=== PATIENT | female | born 1935 | race Caucasian/White ===

== ENCOUNTER 2016-07-22 21:23 | Observation (INO) | payer MEDICARE, MEDICAID ==
[~2016-07-22] VITALS: Ht 160 cm; Wt 69.0 kg
[~2016-07-22 21:23] MED LIST: AMIT10TA6 PO; CALC1TAB26 PO; CELE40TA PO; CREON24 PO; CYCL1TAB29 PO; GABA400C5 PO; HYDR-3366 PO; INSU100V2 SQ; INSU100V3 SQ; MOBI7.5T PO; POTA10TA2 PO; PROT40TA PO; REGL10TA5 PO; ROPI.5 PO; VITA500T PO; ZOCO80TA PO
[2016-07-22 21:26] VITALS: BP 163/74; PULSE 106; RESP 15; TEMP 98.1; O2SAT 95
[2016-07-22] MEDS ORDERED: SODIUM CHLOR 0.9% 1000 ML INJ 1,000 ML IV SCH (22:56)
[2016-07-22] MEDS ORDERED: SODIUM CHLORIDE 0.9% FLUSH 5 ML FLUSH IVF PRN (23:00)
[2016-07-22] MEDS ORDERED: ONDANSETRON HCL 4 MG/2 ML VIAL IVP ONE (23:00)
[2016-07-22 23:02] VITALS: RESP 18; O2SAT 100
--- NOTE | 2016-07-22 23:03 | PD ---
HPI Chief Complaint: Respiratory Symptoms Time Seen by Provider: 22:48 Travel History International Travel<30 days: No Contact w/Intl Traveler<30days: No Traveled to known affect area: No History of Present Illness HPI 81-year-old female arrives to the ER complaining of nausea vomiting diarrhea for 2 days. She has a history of hyperlipidemia, hypertension, COPD, insulin- dependent diabetes. She has been unable to tolerate her medications for 2 days. Ten episodes of nonbloody vomiting and about 4 episodes of nonbloody diarrhea were observed today. No fever has been observed. She was diagnosed with bronchitis at [facility] ER today and discharged with meds for same. She denies abdominal pain. No chest pain or shortness of breath. No urinary complaint. PFSH Past Medical History Arthritis: Yes Asthma: No Blood Disorders: No Anxiety: No Depression: No Heart Rhythm Problems: No Cancer: No Cardiovascular Problems: Yes (HTN) High Cholesterol: Yes Chemotherapy: No Chest Pain: No Congestive Heart Failure: No COPD: Yes Diabetes: Yes Endocrine: Yes Gastrointestinal Disorders: No GERD: Yes Genitourinary: No Hypertension: Yes Immune Disorder: No Implanted Vascular Access Dvce: Yes Musculoskeletal: Yes (CHRONIC LOWER BACK PAIN) Neurologic: No Psychiatric: No Reproductive: No Respiratory: Yes (COPD) Immunizations Current: No Radiation Therapy: No Sleep Apnea: No Thyroid Disease: No ?: Not Past Surgical History Abdominal Surgery: Yes (BOWEL RESECTION) Body Medical Devices: Metal plates in left arm Cardiac Surgery: No Eye Surgery: Yes (CATARACT) Gynecologic Surgery: Yes (Hysterectomy ) Hysterectomy: Yes Tonsillectomy: Yes Other Surgery: Yes (colostomy reversal) Social History Alcohol Use: No Tobacco Use: Yes (1/2 PPD) Substance Use: No Allergies-Medications (Allergen,Severity, Reaction): Coded Allergies: No Known Allergies (Unverified , 07/22/16) Reported Meds & Prescriptions Reported Meds & Active Scripts Active Zofran Odt (Ondansetron Odt) 4 Mg Tab 4 Mg SL Q8HR PRN [place] (Hydrocodone-Acetaminophen) 10-325 Mg Tab 1 Tab PO Q6H PRN 14 Days Reported Prednisone 20 Mg Tab 20 Mg PO DIRECTED 40 MG twice a day x 3 days, then 20 MG daily x 3 days, then 10 MG daily x 3 days Metoclopramide (Metoclopramide HCl) 10 Mg Tab 10 Mg PO QID Cephalexin 500 Mg Tab 500 Mg PO Q12H Valsartan 320 Mg Tab 320 Mg PO DAILY Calcium 600/Vitamin D3 (Calcium Carbonate-Cholecalciferol) 600-800 Mg-Unit Tab 1 Tab PO DAILY Vitamin C (Ascorbic Acid) 500 Mg Tab 500 Mg PO DAILY Humulin R Inj (Insulin Human Regular) 1,000 Unit/10 Ml Vial SQ DIRECTED PRN Humulin N Inj (Insulin Human NPH) 1,000 Unit/10 Ml Vial 20 Units SQ DAILY IN THE PM Humulin N Inj (Insulin Human NPH) 1,000 Unit/10 Ml Vial 10 Units SQ DAILY IN THE AM Creon (Amylase/Lipase/Protease) 24,000-76,000-120,000 Units Cap 2-3 Cap PO TIDPC Gabapentin 400 Mg Cap 400 Cap PO TID Zocor (Simvastatin) 80 Mg Tab 80 Mg PO DAILY Potassium Chloride ER (Potassium Chloride) 10 Meq Tab 10 Meq PO DAILY Flexeril (Cyclobenzaprine HCl) 10 Mg Tab 10 Mg PO BID Mobic (Meloxicam) 7.5 Mg Tab 7.5-15 Mg PO DAILY Protonix (Pantoprazole Sodium) 40 Mg Tab 40 Mg PO DAILY Celexa (Citalopram Hydrobromide) 40 Mg Tab 40 Mg PO DAILY Requip (Ropinirole HCl) 0.5 Mg Tab 0.5 Mg PO HS Amitriptyline (Amitriptyline HCl) 10 Mg Tab 10 Mg PO DAILY Reglan (Metoclopramide HCl) 10 Mg Tab 10 Mg PO TIDAC Review of Systems Except as stated in HPI: all other systems reviewed are Neg General / Constitutional: No: Fever, Chills Gastrointestinal: Positive: Nausea, Vomiting, Diarrhea, Changes in Bowel Habits , No: Abdominal Pain, Hematemesis, Hematochezia, Constipation Genitourinary: No: Urgency, Frequency Physical Exam Narrative GENERAL: 81-year-old female pleasant no acute distress SKIN: Warm and dry. HEAD: Atraumatic. Normocephalic. EYES: Pupils equal and round. No scleral icterus. No injection or drainage. ENT: No nasal bleeding or discharge. Mucous membranes pink and moist. NECK: Trachea midline. No JVD. CARDIOVASCULAR: Heart rate approximately 95 bpm and regular. RESPIRATORY: No accessory muscle use. Clear to auscultation. Breath sounds equal bilaterally. GASTROINTESTINAL: Abdomen soft, non-tender, nondistended. Hepatic and splenic margins not palpable. MUSCULOSKELETAL: No obvious deformities. No clubbing. No cyanosis. No edema. NEUROLOGICAL: Awake and alert. No obvious cranial nerve deficits. Motor grossly within normal limits. Normal speech. PSYCHIATRIC: Appropriate mood and affect; insight and judgment normal. Data Data Last Documented VS Vital Signs Date Time Temp Pulse Resp B/P Pulse Ox O2 Delivery O2 Flow Rate FiO2 07/22/16 23:02 18 100 Nasal Cannula 2 07/22/16 21:26 98.1 106 163/74 Vital signs reviewed Orders Basic Metabolic Panel (Bmp) (07/22/16 22:56) Complete Blood Count With Diff (07/22/16 22:56) Lactic Acid (07/22/16 22:56) Urinalysis - C+S If Indicated (07/22/16 22:56) Iv Access Insert/Monitor (07/22/16 22:56) Ecg Monitoring (07/22/16 22:56) Oximetry (07/22/16 22:56) Ondansetron Inj (Zofran Inj) (07/22/16 23:00) Sodium Chlor 0.9% 1000 Ml Inj (Ns 1000 M (07/22/16 22:56) Sodium Chloride 0.9% Flush (Ns Flush) (07/22/16 23:00) Electrocardiogram (07/22/16 22:56) Chest, Single Ap (07/22/16 22:56) Ckmb (Isoenzyme) Profile (07/22/16 23:10) Troponin I (07/22/16 23:10) CKMB (07/22/16 23:10) CKMB% (07/22/16 23:10) Labs Laboratory Tests Test 07/22/16 07/22/16 07/23/16 23:10 23:25 00:20 White Blood Count 7.3 TH/MM3 Red Blood Count 5.58 MIL/MM3 Hemoglobin 15.6 GM/DL Hematocrit 46.0 % Mean Corpuscular Volume 82.3 FL Mean Corpuscular Hemoglobin 28.0 PG Mean Corpuscular Hemoglobin 34.0 % Concent Red Cell Distribution Width 17.8 % Platelet Count 258 TH/MM3 Mean Platelet Volume 8.8 FL Neutrophils (%) (Auto) 60.6 % Lymphocytes (%) (Auto) 28.6 % Monocytes (%) (Auto) 9.4 % Eosinophils (%) (Auto) 0.2 % Basophils (%) (Auto) 1.2 % Neutrophils # (Auto) 4.4 TH/MM3 Lymphocytes # (Auto) 2.1 TH/MM3 Monocytes # (Auto) 0.7 TH/MM3 Eosinophils # (Auto) 0.0 TH/MM3 Basophils # (Auto) 0.1 TH/MM3 CBC Comment DIFF FINAL Differential Comment Sodium Level 134 MEQ/L Potassium Level 3.7 MEQ/L Chloride Level 101 MEQ/L Carbon Dioxide Level 20.9 MEQ/L Blood Urea Nitrogen 11 MG/DL Creatinine 0.66 MG/DL Random Glucose 160 MG/DL Calcium Level 9.1 MG/DL Anion Gap 12 MEQ/L Estimat Glomerular Filtration 86 ML/MIN Rate Total Creatine Kinase 140 U/L Creatine Kinase MB 2.5 NG/ML Troponin I LESS THAN 0.02 NG/ML Lactic Acid Level 1.5 mmol/L Urine Color YELLOW Urine Turbidity CLEAR Urine pH 6.0 Urine Specific [place] 1.018 Urine Protein TRACE mg/dL Urine Glucose (UA) NEG mg/dL Urine Ketones 80 mg/dL Urine Occult Blood NEG Urine Nitrite NEG Urine Bilirubin NEG Urine Urobilinogen LESS THAN 2.0 MG/DL Urine Leukocyte Esterase NEG Urine RBC 1 /hpf Urine WBC 2 /hpf Urine Squamous Epithelial <1 /hpf Cells Urine Hyaline Casts 2 /lpf Urine Waxy Casts 1 /lpf Urine Mucus FEW /lpf Microscopic Urinalysis Comment CULT NOT INDICATED MDM Medical Decision Making Medical Screen Exam Complete: Yes Emergency Medical Condition: Yes Differential Diagnosis UTI, electrolyte imbalance, arrhythmia, NSTEMI, pneumonia, renal failure Narrative Course EKG reveals a sinus rhythm of 97 bpm with Q waves in V3 and V4 Last 24 hours Impressions Chest X-Ray 07/22/16 8427 Signed Impressions: Service Date/Time: Friday, July 22, 2016 23:33 - CONCLUSION: No acute cardiopulmonary disease identified. Souleymane Merlos MD CBC & BMP Diagram 07/22/16 23:10 Troponin is less than 0.02 Patient has received Zofran and a liter of saline here. Upon reassessment at 1: 30 AM she appears in no distress. The patient's daughter reiterates that multiple antiemetic agents have been given today system nausea and vomiting have been observed. We'll keep for 23 hours for IV hydration and antiemesis. d/w Valeriy Michael Diagnosis Primary Impression: Nausea & vomiting Qualified Code: R11.2 - Nausea and vomiting, intractability of vomiting not specified, unspecified vomiting type Additional Impression: Diarrhea Qualified Code: R19.7 - Diarrhea, unspecified type Admitting Information Admitting Physician Requests: Observation Referrals: DR CASANOVA 2 days Additional Instructions: You have a choice when it comes to health care, and we are glad that you chose [facility]. Hopefully, we have met your expectations on today's visit. You are welcome to return to [facility] at any time, as we are committed to meeting the health care needs of our community. Scripts Ondansetron Odt (Zofran Odt)4 Mg Tab4 Mg SL Q8HR PRN (Nausea/Vomiting) #10 TAB Ref 0 Prov:Shorty Lane MD 07/23/[address] MD Jul 22, 2016 23:03
[2016-07-22 23:24] LABS: AUTOMATED NEUTROPHIL # 4.4 TH/MM3 (1.8-7.7); BASOPHIL # 0.1 TH/MM3 (0-0.2); BASOPHIL % 1.2 % (0.0-2.0); EOSINOPHIL % 0.2 % (0.0-4.0); HEMO FLAGS DIFF FINAL; LYMPH % 28.6 % (9.0-44.0); LYMPHOCYTE # 2.1 TH/MM3 (1.0-4.8); MEAN CELL VOLUME 82.3 FL (80.0-100.0); MONO % 9.4 % (0.0-8.0); NEUT % 60.6 % (16.0-70.0); PLATELET COUNT 258 TH/MM3 (150-450); RED BLOOD COUNT 5.58 MIL/MM3 (4.00-5.30); RED CELL DISTRIBUTION WIDTH 17.8 % (11.6-17.2); WHITE BLOOD COUNT 7.3 TH/MM3 (4.0-11.0)
[2016-07-22] MEDS ORDERED: VALS1TAB70 PO (23:38)
[2016-07-22 23:39] LABS: ANION GAP 12 MEQ/L (5-15); BICARBONATE 20.9 MEQ/L (21.0-32.0); BLOOD UREA NITROGEN 11 MG/DL (7-18); CHLORIDE 101 MEQ/L (98-107); GLOMERULAR FILTRATION RATE 86 ML/MIN (>89); POTASSIUM 3.7 MEQ/L (3.5-5.1); SODIUM (NA) 134 MEQ/L (136-145)
[2016-07-22] MEDS ORDERED: PRED20 PO (23:42)
[2016-07-22] MEDS ORDERED: CEPH500T PO (23:42)
[2016-07-22] MEDS ORDERED: METO10TA PO (23:42)
[2016-07-22] MEDS ORDERED: CITA20TA4 PO (23:43)
[2016-07-22 23:51] LABS: CREATINE KINASE 140 U/L (26-192)
--- NOTE | 2016-07-22 23:57 | RADRPT ---
EXAM DATE/TIME: 07/22/2016 23:33 [place] COMPARISON: CHEST SINGLE AP, March 27, 2016, 12:10. INDICATIONS : Shortness of breath. feeling faint MEDICAL HISTORY : Chronic obstructive pulmonary disease. SURGICAL HISTORY : Left Shoulder ORIF ENCOUNTER: Initial ACUITY: 1 day PAIN SCORE: 6/10 LOCATION: Bilateral chest FINDINGS: Single AP view of the chest. The lungs are clear. Cardiomediastinal silhouette within normal limits. No evidence of pleural effusion or pneumothorax. Evidence of chronic bone defect in the proximal left humerus. CONCLUSION: No acute cardiopulmonary disease identified. Souleymane Merlos MD on July 22, 2016 at 23:54 Board Certified Radiologist. This report was verified electronically.
[2016-07-23 00:18] LABS: CKMB 2.5 NG/ML (0.5-3.6)
[2016-07-23 00:37] LABS: BLOOD, URINE NEG (NEG); COMMENT (UR) CULT NOT INDICATED; CULTURE IF INDICATED CULT NOT INDICATED; GLUCOSE,URINE NEG (NEG); HYALINE CAST, URINE 2 /lpf (RARE); KETONE, URINE 80 mg/dL (NEG); MUCUS URINE FEW /lpf (OCC); NITRITE,URINE NEG (NEG); SQUAMOUS EPITHELIAL CELL URINE <1 /hpf (0-5); URINE COLOR YELLOW (YELLW/STRAW); WAXY CAST, URINE 1 /lpf
[2016-07-23] MEDS ORDERED: ZOFR4TAB3 SL (01:22)
[2016-07-23 02:06] VITALS: BP 141/64; PULSE 99; RESP 18; O2SAT 100
[2016-07-23] MEDS ORDERED: ACETAMINOPHEN/HYDROcodone 325 MG/10 MG TAB PO ONE (02:15)
[2016-07-23] MEDS ORDERED: ACETAMINOPHEN 325 MG TAB PO PRN (02:45)
[2016-07-23] MEDS ORDERED: NALOXONE HCL 0.4 MG/ML AMP IV PRN (02:45)
[2016-07-23] MEDS ORDERED: SODIUM CHLORIDE 0.9% FLUSH 5 ML FLUSH FLUSH PRN (02:45)
[2016-07-23] MEDS ORDERED: ONDANSETRON HCL 4 MG/2 ML VIAL IVP PRN (02:45)
[2016-07-23] MEDS: SODIUM CHLOR 0.9% 1000 ML INJ 1,000 ML IV SCH ×3 (02:59→22:42)
[2016-07-23 04:26] VITALS: BP 131/74; PULSE 88; RESP 20; TEMP 97.4; O2SAT 93
[2016-07-23] MEDS: HEPARIN SODIUM - SQ 10,000 UNITS/ML VIAL SQ SCH ×2 (04:30→17:15)
[2016-07-23] MEDS ORDERED: MORPHINE SULFATE 4 MG/ML INJ IV ONE (04:30)
[2016-07-23] MEDS ORDERED: ACETAMINOPHEN/HYDROcodone 325 MG/10 MG TAB PO PRN ×2 (04:30→15:00)
[2016-07-23] MEDS ORDERED: RESP: ALBUTEROL 2.5 MG/IPRATROPIUM 0.5 MG NEB (PRN) NEB (08:30)
[2016-07-23 08:32] VITALS: BP 139/64; PULSE 91; RESP 18; TEMP 96.1; O2SAT 95
[2016-07-23] MEDS: PANTOPRAZOLE SOD 40 MG DELAYED RELEASE TAB PO SCH (08:59)
[2016-07-23] MEDS: SODIUM CHLORIDE 0.9% FLUSH 5 ML FLUSH FLUSH SCH ×2 (08:59→22:01)
--- NOTE | 2016-07-23 09:25 | MH ---
cc: SOLIS GALLARDO MD DATE OF ADMISSION: 07/23/2016 DATE OF 1935 CHIEF COMPLAINT Nausea, vomiting and diarrhea. TRAVEL IN THE LAST 30 DAYS None. HISTORY OF PRESENT ILLNESS This is a pleasant 81-year-old white female who has been in her usual state of health for approximately the past month until a couple of days ago. The patient with no warning started having problems with nausea, vomiting, nonbloody and approximately four episodes of diarrhea yesterday. The patient denies any fever, denies any chest pain, denies any shortness of breath except for her normal routine. The patient denies any dysuria, no headaches. The patient is positive for generalized weakness and malaise and has a significant history of COPD and cigarette abuse. The patient fell approximately 6 months ago, injured her left hip and leg. She did go to [facility] for two months for rehab and has been in a wheelchair for the past six months. She was released from [facility] approximately a month ago and is back home has been in her home living with her daughter and her . The patient does also have a diagnosis of bronchitis that she had been to the [facility] for and was discharged with outpatient medications for that treatment. The patient is alert, oriented and a fairly good historian. PAST MEDICAL HISTORY 1. Arthritis. 2. COPD. 3. Cigarette abuse. 4. Hypertension. 5. Hyperlipidemia. 6. Diabetes. 7. Gastroesophageal reflux disease. 8. Chronic degenerative disk disease and low back pain. 9. Left shoulder injury, chronic. 10. Chronic pain. PAST SURGICAL HISTORY 1. Bowel resection. 2. Metal plates in left arm. 3. Cataract surgery. 4. Hysterectomy. 5. Tonsillectomy. 6. Colostomy reversal. ALLERGIES None known. MEDICATIONS REPORTED 1. Prednisone. 2. Cephalexin. 3. Valsartan. 4. Calcium. 5. Metoclopramide. 6. She has taken [place] p.r.n. 7. Zofran. 8. Vitamin C. 9. Insulin for her insulin-dependent diabetes mellitus. 10. Gabapentin. 11. Creon. 12. Zocor. 13. Potassium. 14. Flexeril. 15. Mobic. 16. Protonix. 17. Celexa. 18. Requip. 19. Amitriptyline. 20. Reglan. SOCIAL HISTORY Long-term smoker since age of 20, currently smokes approximately 1/2-half per day. No alcohol. No other illicit drug use. Lives with her daughter and her in her home. REVIEW OF SYSTEMS A 12-point review was done. Positives noted are nausea, vomiting, diarrhea, dry mucous membranes, generalized weakness and fatigue, cough. Otherwise systems are negative or unremarkable. PHYSICAL EXAMINATION VITAL SIGNS: Temperature is 97.4, pulse 88, has been as high as 106, respirations 20, blood pressure 131/74, O2 sat 93, 2 liters nasal cannula O2. GENERAL: Thin, borderline frail white female, looks to be her stated age resting on the stretcher, alert. SKIN: Thin mucous membranes, pale, warm and dry. HEENT: Atraumatic, normocephalic. PERRLA at 2. No scleral icterus. No exudate. Oral cavity - Dry mucous membranes. NECK: Thin, supple. CARDIOVASCULAR: S1-S2. Regular rate and rhythm. No murmurs, rubs or gallops. RESPIRATORY: Clear to auscultation anteriorly and posteriorly, mid and upper lobes. She does have expiratory and some inspiratory wheezes noted bilateral. GI: Abdomen is soft, nontender, nondistended. Active bowel sounds in all four quadrants. MUSCULOSKELETAL: She can move her extremities with purpose. She does have weakness secondary to her falling injury on her left lower leg but she can overcome resistance. Hand stonemason helper are equal. No clubbing, no edema. Left shoulder dislocation, chronic, increased pain with tactile stimulation or movement. This is status post a fall. NEUROLOGICALLY: Alert, oriented. No obvious deficits. Speech is clear and normal. PSYCHIATRIC: Appropriate mood and affect. DIAGNOSTIC DATA WBC count 7.3, RBC 5.58, hemoglobin 15.6, hematocrit 46, platelet count is 258, abnormals noted are her monocyte percentage at 9.4. Chemistry: Sodium 134, potassium 3.7, chloride 101, carbon dioxide 20.9, amnion gap 12, BUN 11, creatinine 0.66, GFR 86, random glucose 160, lactic acid 1.5, calcium 9.1. Troponin is less than 0.02. Urine is yellow clear, pH is 6, specific gravity 1.018, trace protein, negative for glucose, occult blood, nitrites, bilirubin and urine esterase. Ketones are 80. Culture is not indicated. IMAGING STUDIES Chest x-ray with no acute cardiopulmonary disease or consolidation. ASSESSMENT AND PLAN 1. Lactic acid sepsis. 2. Nausea, vomiting, diarrhea, unspecified for now. Rule out stomach virus. 3. Possible gastritis. 4. Bronchitis recent history. 5. Hypertension. 6. Tobacco abuse. 7. COPD exacerbation with hypoxemia. 8. Diabetes mellitus insulin dependent. PLAN 1. Admit initially for observation. 2. We will hydrate this patient with gentle hydration. Vital signs q. 4 and as needed. 3. Activity will be bedrest with out of bed with assistance. 4. Reconcile her medications. 5. DVT prophylaxis with heparin. 6. Monitor for any fever. 7. Will check her for flu. 8. The patient will need management for her chronic pain. 9. We are going to monitor her on telemetry, keep the IV in. 10. The patient did receive a influenza virus vaccine x 1 when brought into to the emergency room. 11. Give p.r.n. medication for her nausea and vomiting and monitor her GI needs. We will give her Protonix for PUD prophylaxis. 12. DuoNeb treatments for her cough. 13. We will follow her needs. The patient is full code, full aggressive care. This has been briefly discuss with her regarding her wishes. Dictated by: PRETTY Wise Solis Gallardo MD MNA/SSB /8:18 AM /9:24 AM PT is seen & examined acute N/V/D ?? etiology, ? gastroenteritis ? Gastroparesis ? med s/e ch pain ? narcotic dependence hx pancreatitis IVF analgesic anti emetics d/w PT d/w Rema d/Solis Esposito RN, MD Jul 23, 2016 12:25 MTDD
[2016-07-23] MEDS: MORPHINE SULFATE 4 MG/ML INJ IV PUSH PRN ×2 (12:01→17:15)
--- NOTE | 2016-07-23 12:25 | HHI.PR ---
Objective Objective Results - Vital Signs Date Time Temp Pulse Resp B/P Pulse Ox O2 Delivery O2 Flow Rate FiO2 07/23/16 08:32 96.1 91 18 139/64 95 07/23/16 04:39 16 07/23/16 04:26 97.4 88 20 131/74 93 07/23/16 02:06 99 18 141/64 100 Nasal Cannula 2 07/22/16 23:02 18 100 Nasal Cannula 2 07/22/16 22:56 18 100 Nasal Cannula 2 07/22/16 21:26 98.1 106 15 163/74 95 Room Air Result Diagram: 07/22/16 2310 07/22/16 2310 Other Results Laboratory Tests Test 07/22/16 07/22/16 07/23/16 23:10 23:25 00:20 White Blood Count 7.3 Red Blood Count 5.58 Hemoglobin 15.6 Hematocrit 46.0 Mean Corpuscular Volume 82.3 Mean Corpuscular Hemoglobin 28.0 Mean Corpuscular Hemoglobin 34.0 Concent Red Cell Distribution Width 17.8 Platelet Count 258 Mean Platelet Volume 8.8 Neutrophils (%) (Auto) 60.6 Lymphocytes (%) (Auto) 28.6 Monocytes (%) (Auto) 9.4 Eosinophils (%) (Auto) 0.2 Basophils (%) (Auto) 1.2 Neutrophils # (Auto) 4.4 Lymphocytes # (Auto) 2.1 Monocytes # (Auto) 0.7 Eosinophils # (Auto) 0.0 Basophils # (Auto) 0.1 CBC Comment DIFF FINAL Differential Comment Sodium Level 134 Potassium Level 3.7 Chloride Level 101 Carbon Dioxide Level 20.9 Blood Urea Nitrogen 11 Creatinine 0.66 Random Glucose 160 Calcium Level 9.1 Anion Gap 12 Estimat Glomerular Filtration 86 Rate Total Creatine Kinase 140 Creatine Kinase MB 2.5 Troponin I LESS THAN 0.02 Lactic Acid Level 1.5 Urine Color YELLOW Urine Turbidity CLEAR Urine pH 6.0 Urine Specific [place] 1.018 Urine Protein TRACE Urine Glucose (UA) NEG Urine Ketones 80 Urine Occult Blood NEG Urine Nitrite NEG Urine Bilirubin NEG Urine Urobilinogen LESS THAN 2.0 Urine Leukocyte Esterase NEG Urine RBC 1 Urine WBC 2 Urine Squamous Epithelial <1 Cells Urine Hyaline Casts 2 Urine Waxy Casts 1 Urine Mucus FEW Microscopic Urinalysis Comment CULT NOT INDICATED Physical Exam Physical Exam PT is seen & examined acute N/V/D ?? etiology, ? gastroenteritis ? Gastroparesis ? med s/e ch pain ? narcotic dependence hx pancreatitis IVF analgesic anti emetics d/w PT d/w Rema irene/Solis Esposito RN, MD Jul 23, 2016 12:25
[2016-07-23] MEDS: LIPASE/PROTEASE/AMYLASE (24,000/76,000/120,000) CAP PO SCH ×2 (13:30→17:14)
[2016-07-23 13:38] VITALS: BP 136/64; PULSE 88; RESP 18; TEMP 97.9; O2SAT 93
--- NOTE | 2016-07-23 13:52 | EKG ---
Date Performed: 07/22/2016 Time Performed: 22:59:33 PTAGE: 81 years EKG: Sinus rhythm POSSIBLE LEFT ATRIAL ENLARGEMENT MARKED LEFT AXIS DEVIATION LOW QRS VOLTAGE IN PRECORDIAL LEADS POSS IBLE ANTERIOR MYOCARDIAL INFARCTION ABNORMAL ECG PREVIOUS TRACING : 03/27/2016 12.57 DOCTOR: Agustín Alvarez Interpretating Date/Time 07/23/2016 13:49:13
[2016-07-23] MEDS: GABAPENTIN 400 MG CAP PO SCH ×2 (14:56→17:14)
[2016-07-23 15:34] VITALS: BP 166/75; PULSE 88; RESP 19; TEMP 98.2; O2SAT 93
[2016-07-23] MEDS: METOCLOPRAMIDE HCL 10 MG TAB PO SCH (17:14)
[2016-07-23 20:12] VITALS: BP 139/65; PULSE 87; RESP 18; TEMP 97.9
[2016-07-23] MEDS: CYCLOBENZAPRINE HCL 10 MG TAB PO SCH (22:00)
[2016-07-24 00:39] VITALS: BP 122/58; PULSE 84; O2SAT 91
[2016-07-24 04:09] VITALS: BP 120/62; PULSE 85; RESP 20; TEMP 98; O2SAT 92
[2016-07-24] MEDS: MORPHINE SULFATE 4 MG/ML INJ IV PUSH PRN ×2 (04:11→08:55)
[2016-07-24] MEDS: HEPARIN SODIUM - SQ 10,000 UNITS/ML VIAL SQ SCH ×2 (05:20→17:18)
[2016-07-24 07:47] VITALS: BP 159/71; PULSE 91; RESP 18; TEMP 97.8; O2SAT 92
[2016-07-24] MEDS: SODIUM CHLORIDE 0.9% FLUSH 5 ML FLUSH FLUSH SCH (08:11)
[2016-07-24] MEDS: CYCLOBENZAPRINE HCL 10 MG TAB PO SCH (08:50)
[2016-07-24] MEDS: SODIUM CHLOR 0.9% 1000 ML INJ 1,000 ML IV SCH (08:50)
[2016-07-24] MEDS: GABAPENTIN 400 MG CAP PO SCH ×3 (08:51→17:17)
[2016-07-24] MEDS: METOCLOPRAMIDE HCL 10 MG TAB PO SCH ×3 (08:51→17:16)
[2016-07-24] MEDS: LIPASE/PROTEASE/AMYLASE (24,000/76,000/120,000) CAP PO SCH ×3 (08:52→17:16)
[2016-07-24] MEDS: PANTOPRAZOLE SOD 40 MG DELAYED RELEASE TAB PO SCH (08:57)
[2016-07-24] MEDS ORDERED: VALSARTAN 160 MG TAB PO SCH (09:00)
[2016-07-24] MEDS ORDERED: CITALOPRAM HYDROBROMIDE 40 MG TAB PO SCH (09:00)
[2016-07-24] MEDS ORDERED: PANTOPRAZOLE SOD 40 MG DELAYED RELEASE TAB PO SCH (09:00)
[2016-07-24] MEDS ORDERED: AMITRIPTYLINE HCL 10 MG TAB PO SCH (09:00)
[2016-07-24] MEDS ORDERED: SIMVASTATIN 80 MG PO SCH (09:00)
[2016-07-24] MEDS ORDERED: POTASSIUM CHLORIDE 10 MEQ CONTROLLED RELEASE TAB PO SCH (09:00)
[2016-07-24] MEDS ORDERED: INSULIN HUMAN NPH 1,000 UNITS/10 ML VIAL SQ SCH (09:00)
--- NOTE | 2016-07-24 09:31 | HHI.PR ---
Subjective Remarks Resting in bed Nausea, but no emesis since admission No shortness of breath, patient on room air Alert responsive No family in room (Rema Louie) Objective Objective Results - Vital Signs Date Time Temp Pulse Resp B/P Pulse Ox O2 Delivery O2 Flow Rate FiO2 07/24/16 07:47 97.8 91 18 159/71 92 07/24/16 05:54 20 07/24/16 04:09 98.0 85 20 120/62 92 07/24/16 00:52 20 07/24/16 00:39 84 122/58 91 07/23/16 20:12 97.9 87 18 139/65 07/23/16 15:34 98.2 88 19 166/75 93 07/23/16 13:38 97.9 88 18 136/64 93 I/O 07/23/16 07/23/16 07/23/16 07/24/16 07/24/16 07/24/16 07:00 15:00 23:00 07:00 15:00 23:00 Intake Total 1010 ml Balance 1010 ml Intake IV Total 1010 ml # Voids 3 # Bowel Movements 0 (Rema Louie) Result Diagram: 07/22/16 2310 07/22/16 2310 Other Results Last Impressions Chest X-Ray 07/22/166 Signed Impressions: Service Date/Time: Friday, July 22, 2016 23:33 - CONCLUSION: No acute cardiopulmonary disease identified. Souleymane Merlos MD Medications and IVs Active Medications Acetaminophen/ Hydrocodone Bitart ([place] 10-325 Mg) 1 tab Q6H PRN PO Last administered on 07/23/16 22:01; Admin Dose 1 TAB; Start 07/23/16 at 15:00 Amitriptyline HCl (Elavil) 10 mg DAILY PO Last administered on 07/24/16 08:52; Admin Dose 10 MG; Start 07/24/16 at 09:00 Amylase/Lipase/ Protease (Creon 24-76-120) 2 cap TIDPC PO Last administered on 08:52; Admin Dose 2 CAP; Start 07/23/16 at 13:30 Citalopram Hydrobromide (CeleXA) 40 mg DAILY PO Last administered on 07/24/16 08:52; Admin Dose 40 MG; Start 07/24/16 at 09:00 Cyclobenzaprine HCl (Flexeril) 10 mg BID PO Last administered on 07/24/16 08:50 ; Admin Dose 10 MG; Start 07/23/16 at 21:00 Gabapentin (Neurontin) 300 mg TID PO Last administered on 07/24/16 08:51; Admin Dose 300 MG; Start 07/23/16 at 13:00 Influenza Virus Vaccine (Flu (Quadrivalent) Vaccine Inj) 0.5 ml ONCE ONCE IM Last administered on 07/24/16 08:57; Admin Dose 0.5 ML; Start 07/24/16 at 10:00 ; Stop 07/24/16 at 10:01 Insulin Human NPH (NovoLIN N INJ) 20 units DAILY SQ Last administered on 08:53; Admin Dose 20 UNITS; Start 07/24/16 at 09:00 Metoclopramide HCl (Reglan) 10 mg TIDAC PO Last administered on 07/24/16 08:51 ; Admin Dose 10 MG; Start 07/23/16 at 17:00 Morphine Sulfate (Morphine Inj) 4 mg Q4H PRN IV PUSH Last administered on 08:55; Admin Dose 4 MG; Start 07/23/16 at 11:45 Pantoprazole Sodium (Protonix) 40 mg DAILY PO; Start 07/24/16 at 09:00 Patient Own Medication PT OWN MED: SIMVASTA... DAILY PO; Start 07/24/16 at 09:00 Potassium Chloride (KCl) 10 meq DAILY PO Last administered on 07/24/16 08:52; Admin Dose 10 MEQ; Start 07/24/16 at 09:00 Ropinirole HCl (Requip) 0.5 mg HS PO Last administered on 07/23/16 22:00; Admin Dose 0.5 MG; Start 07/23/16 at 21:00 Valsartan (Diovan) 320 mg DAILY PO Last administered on 07/24/16 08:52; Admin Dose 320 MG; Start 07/24/16 at 09:00 (Rema Louie) ROS General: Weakness (generalized), Other (10 point ROS done positives noted to be weakness some cough when necessary nausea but no vomiting. Other systems negative or unremarkable) Pulmonary: Cough (occasional) GI: N/V (nausea but no vomiting) (Rema Louie) Physical Exam Physical Exam PHYSICAL EXAMINATION GENERAL: This is female who appears to be in no acute distress at rest She is alert and awake, answers simple questions HEAD: Normocephalic without any lesion or mass noted. Facial features appear symmetric. OROPHARYNGEAL: Oropharynx without erythema or edema., Dry NECK: Supple. No nuchal rigidity or lymphadenopathy. Trachea midline without deviation. CARDIAC: Regular rhythm, regular rate, S1 and S2 are heard. LUNGS: Clear to auscultation bilaterally. No wheeze, no rhonchi No use of accessory muscles on inspiration or expiration. ABDOMEN: Soft, nontender, Bowel sounds are heard hypoactive No rebound. No guarding. EXTREMITIES: no edema. Pulses equal bilateral. NEUROLOGICAL: Patient mood and affect appropriate. No focal deficit SKIN:Warm and moist, dry Objective Remarks I'm still having some nausea but has not vomited anymore (Rema Louie) A/P Assessment and Plan Lactic acid sepsis., afebrile, no leukocytosis, stable, labs pending this morning Nausea, vomiting, diarrhea, Patient states nausea continues, able to eat very minimal amounts of light liquids and food. Use PO meds instead of IV pain. Probable cause. No further emesis Possible gastritis. Continue hydration, medical management, will check meds CBC and BMP again., Monitor sodium level mild hyponatremia on admission possible gastroenteritis, dehydration, meds, monitor symptoms Same as above Bronchitis recent history, cough occasional, afebrile, medical management Hypertension., Medical management Tobacco abuse., Education on not smoking COPD exacerbation with hypoxemia., No shortness of breath, room air for now, duo nebs Diabetes mellitus insulin dependent., Accu-Cheks medical management with sliding scale DVT prophylaxis with heparin. (Rema Louie) Assessment and Plan pt is seen & examined d/w rema No more Vomiting ., No Diarrhea eating well , No BM x 2 days ch back/left shoulder pain/needs pain meds round the clock repeat labs [p], if remained stable , d/c home f/u pcp d/w PT (Solis Gallardo MD) Rema Louie Jul 24, 2016 09:31 Solis Gallardo MD Jul 24, 2016 10:53
[2016-07-24] MEDS ORDERED: INFLUENZA VIRUS VACCINE (QUADRIVALENT) 0.5 ML SYR IM ONE (10:00)
--- NOTE | 2016-07-24 11:06 | HHI.FF ---
Face to Face Verification Diagnosis: (1) Nausea & vomiting (2) Shoulder dislocation (3) COPD (chronic obstructive pulmonary disease) (4) Arthritis (5) HTN (hypertension) (6) DM (diabetes mellitus) (7) COPD exacerbation Physical Therapy Order: Evaluate and Treat, Improve ambulation, Strength and gait training Home Health Nursing Order: Signs/symptoms of disease process Diabetic education Medication education-adverse effect I have seen patient Jeanne Merlos on 07/24/16. My clinical findings support the need for the requested home health care services because: Ltd mobility - disease progression Deconditioned w/ increased weakness High risk of falls I certify that my clinical findings support that this patient is homebound because: Unsteady gait/balance Unsafe to leave home unassisted [id number] bed/chair Unable to use public transportation Solis Gallardo MD Jul 24, 2016 11:05
[2016-07-24 11:07] VITALS: BP 105/52; PULSE 90; RESP 18; TEMP 96.3; O2SAT 90
--- NOTE | 2016-07-31 18:24 | HHI.DS ---
Discharge Summary Admission Date Jul 23, 2016 at 01:55 Discharge Date: Jul 24, 2016 Admitting Diagnosis Intrractable Vomiting, Nausea, Diarrhea Brief History This was a pleasant 81-year-old white female who had been in her usual state of health for approximately the past month until a couple of days ago. The patient with no warning started having problems with nausea, vomiting, nonbloody and approximately four episodes of diarrhea yesterday. The patient denied any fever, denied any chest pain, denied any shortness of breath except for her normal routine. The patient denied any dysuria, no headaches. The patient was positive for generalized weakness and malaise and had a significant history of COPD and cigarette abuse. The patient fell approximately 6 months ago,and injured her left hip and leg. She did go to [facility] for two months for rehab and had been in a wheelchair for the past six months. She was released from [facility] approximately a month ago and was back home living with her daughter and her . The patient also had a diagnosis of bronchitis. She had been to the [facility] ER for and was discharged with outpatient medications. Imaging Last Impressions Chest X-Ray 07/22/16 [id number] Signed Impressions: Service Date/Time: Friday, July 22, 2016 23:33 - CONCLUSION: No acute cardiopulmonary disease identified. Souleymane Merlos MD PE at Discharge PHYSICAL EXAMINATION GENERAL: This was a female who appears to be in no acute distress at rest She was alert and awake, answers simple questions HEAD: Normocephalic without any lesion or mass noted. Facial features appear symmetric. OROPHARYNGEAL: Oropharynx without erythema or edema., Dry NECK: Supple. No nuchal rigidity or lymphadenopathy. Trachea midline without deviation. CARDIAC: Regular rhythm, regular rate, S1 and S2 are heard. LUNGS: Clear to auscultation bilaterally. No wheeze, no rhonchi No use of accessory muscles on inspiration or expiration. ABDOMEN: Soft, nontender, Bowel sounds are heard hypoactive No rebound. No guarding. EXTREMITIES: no edema. Pulses equal bilateral. NEUROLOGICAL: Patient mood and affect appropriate. No focal deficit SKIN:Warm and moist, dry Hospital Course These are the diagnoses that were used to treat this patient during this brief hospital stay. Initial labs showed Lactic acid sepsis. Patient was afebrile, no leukocytosis, stable. We reevaluated her labs in the morning for any acute changes. Nausea, vomiting, diarrhea, Patient stated nausea continues, able to eat very minimal amounts of light liquids and food. Use PO meds instead of IV pain was a Probable cause for her symptoms of nausea vomiting and diarrhea. No further emesis noted after admission. Possible gastritis. Plan was to Continue hydration, medical management, will check meds CBC and BMP again., Monitor sodium level mild hyponatremia on admission. Another reason for her IV hydration. possible gastroenteritis, dehydration, meds, monitor symptoms Same as above Bronchitis recent history, cough occasional, afebrile, medical management Hypertension., Medical management Tobacco abuse., Education on not smoking COPD exacerbation with hypoxemia., No shortness of breath, room air for now, duo nebs Diabetes mellitus insulin dependent., Accu-Cheks medical management with sliding scale DVT prophylaxis with heparin. Dr. Gallardo visited patient and noted No more Vomiting ., No Diarrhea eating well , No BM x 2 days. ch back/left shoulder pain/needs pain meds round the clock. Labs were repeated and found to be within normal limits. It was thought that patient was stable to be discharged and followed on an outpatient basis No acute distress on discharge. Pt Condition on Discharge: Stable Discharge Disposition: Disch w/ Home Health Serv Discharge Instructions DIET: Follow Instructions for: Heart Healthy Diet, Diabetic Diet Fluid Restrictions: none Activities you can perform: Weight Bearing as [place] Other Activity Instructions: fall precautions Follow up Referrals: PCP Follow-up - 1 Week Continued Medications: Amitriptyline (Amitriptyline) 10 Mg Tab 10 MG PO DAILY Control Depression #30 Ref 0 TAB Ascorbic Acid (Vitamin C) 500 Mg Tab 500 MG PO DAILY Nutritional Supplement Ref 0 TAB Calcium Carbonate-Cholecalciferol (Calcium 600/Vitamin D3) 600-800 Mg-Unit Tab 1 TAB PO DAILY TAB Citalopram (Celexa) 40 Mg Tab 40 MG PO DAILY Control Depression #30 Ref 0 TAB Cyclobenzaprine (Flexeril) 10 Mg Tab 10 MG PO BID Muscle Spasm #90 Ref 0 TAB Gabapentin (Gabapentin) 400 Mg Cap 400 CAP PO TID #30 Ref 0 CAP Hydrocodone-Acetaminophen ([place]) 10-325 Mg Tab 1 TAB PO Q6H PRN PAIN Days 14 Ref 0 TAB Insulin Human NPH Inj (Humulin N Inj) 1,000 Unit/10 Ml Vial 10 UNITS SQ DAILY IN THE AM Blood Sugar Management #10 Ref 0 ML Insulin Human NPH Inj (Humulin N Inj) 1,000 Unit/10 Ml Vial 20 UNITS SQ DAILY IN THE PM Blood Sugar Management #10 Ref 0 ML Insulin Human Regular Inj (Humulin R Inj) 1,000 Unit/10 Ml Vial SQ DIRECTED PRN SLIDING SCALE #10 Ref 0 ML Metoclopramide (Reglan) 10 Mg Tab 10 MG PO TIDAC Ref 0 TAB Ondansetron Odt (Zofran Odt) 4 Mg Tab 4 MG SL Q8HR PRN Nausea/Vomiting #10 Ref 0 TAB Pancrelipase (Creon) 24,000-76,000-120,000 Units Cap 2-3 CAP PO TIDPC Digestive Aid #90 Ref 0 CAP Pantoprazole (Protonix) 40 Mg Tab 40 MG PO DAILY Reflux #30 Ref 0 TAB Potassium Chloride ER (Potassium Chloride ER) 10 Meq Tab 10 MEQ PO DAILY Electrolyte Replacement #30 Ref 0 TAB Prednisone (Prednisone) 20 Mg Tab 20 MG PO DIRECTED 40 MG twice a day x 3 days, then 20 MG daily x 3 days, then 10 MG daily x 3 days Inflammation #11 Ref 0 TAB Ropinirole (Requip) 0.5 Mg Tab 0.5 MG PO HS #30 Ref 0 TAB Simvastatin (Zocor) 80 Mg Tab 80 MG PO DAILY Cholesterol Management #30 Ref 0 TAB Valsartan (Valsartan) 320 Mg Tab 320 MG PO DAILY #30 Ref 0 TAB Discontinued Medications: Cephalexin (Cephalexin) 500 Mg Tab 500 MG PO Q12H Infection Ref 0 TAB Meloxicam (Mobic) 7.5 Mg Tab 7.5-15 MG PO DAILY Pain Ref 0 TAB Metoclopramide (Metoclopramide) 10 Mg Tab 10 MG PO QID Ref 0 TAB Rema Louie Jul 31, 2016 18:24
== END 2016-07-24 17:48 | disposition home or self-care (01) ==
LOC: NEPE 21:23 → NEDA 07-23 01:55 → NEPFCDU 07-23 03:35
PROVIDERS: ADMIT Specialist; ATTEND Specialist
DX: A41.9 Sepsis, unspecified organism (principal); R11.2 Nausea with vomiting, unspecified; R19.7 Diarrhea, unspecified; I10 Essential (primary) hypertension; J44.1 Chronic obstructive pulmonary disease with (acute) exacerbation; E11.9 Type 2 diabetes mellitus without complications; Z79.4 Long term (current) use of insulin; M19.90 Unspecified osteoarthritis, unspecified site; E78.5 Hyperlipidemia, unspecified; K21.9 Gastro-esophageal reflux disease without esophagitis; G89.29 Other chronic pain; F17.210 Nicotine dependence, cigarettes, uncomplicated
CPT/HCPCS: 71010; 80048; 81001; 82550; 82552; 83605; 84484; 85025; 93005; 96361; 96374; 99285; G0378; J1644; J1815; J2270; J2405; J7030; Q2038; 90686

== ENCOUNTER 2017-02-12 01:22 | Emergency (ER) | payer MEDICARE, MEDICAID ==
[~2017-02-12] VITALS: Ht 160 cm; Wt 63.0 kg
[~2017-02-12 01:22] MED LIST changes: -MOBI7.5T PO; +PRED20 PO; +VALS1TAB70 PO; +ZOFR4TAB3 SL
[2017-02-12 01:30] VITALS: BP 142/90; PULSE 106; RESP 24; TEMP 98.9; O2SAT 95
[2017-02-12] MEDS ORDERED: ONDANSETRON HCL 4 MG/2 ML VIAL IV PUSH ONE (01:45)
[2017-02-12] MEDS ORDERED: HYDROmorphone HCL PF 1 MG/ML VIAL IV PUSH ONE ×2 (01:45→02:30)
[2017-02-12] MEDS ORDERED: SODIUM CHLOR 0.9% 250 ML INJ 250 ML IV ONE (01:45)
[2017-02-12 01:55] LABS: AUTOMATED NEUTROPHIL # 10.3 TH/MM3 (1.8-7.7); BASOPHIL # 0.1 TH/MM3 (0-0.2); EOSINOPHIL # 0.2 TH/MM3 (0-0.4); EOSINOPHIL % 1.4 % (0.0-4.0); HEMATOCRIT 42.2 % (35.0-46.0); HEMO FLAGS DIFF FINAL; LYMPH % 12.5 % (9.0-44.0); LYMPHOCYTE # 1.6 TH/MM3 (1.0-4.8); MEAN CELL VOLUME 91.8 FL (80.0-100.0); MEAN CORPUSCULAR HEMOGLOBIN 31.5 PG (27.0-34.0); MEAN CORPUSCULAR HGB CONC 34.3 % (32.0-36.0); MONO % 5.5 % (0.0-8.0); NEUT % 79.6 % (16.0-70.0); PLATELET COUNT 338 TH/MM3 (150-450); RED CELL DISTRIBUTION WIDTH 14.9 % (11.6-17.2)
--- NOTE | 2017-02-12 02:08 | PD ---
HPI Chief Complaint: Pain: Acute or Chronic Time Seen by Provider: 01:25 Travel History International Travel<30 days: No Contact w/Intl Traveler<30days: No Traveled to known affect area: No History of Present Illness HPI The patient is a 82-year-old female who presents to the emergency department via EMS for left shoulder pain. The patient has a history of chronic left shoulder pain with previous surgery of the left humerus with chronic subluxation according to EMS. The patient states she was sitting down earlier tonight when she developed pain over the left shoulder that radiates to left scapula and anterior aspect the left shoulder. Patient has limited ability to abduct the left shoulder as well as use the left upper extremity secondary to pain. The patient did take a Lortab 10 mg pill at home which did not alleviate her symptoms. The patient lives with her daughter. She denies any acute trauma to the affected area, but bruising was noted over the left shoulder according to EMS. The patient denies any chest pain, shortness of breath, headache, or neck pain. PFSH Past Medical History Arthritis: Yes Asthma: No Blood Disorders: No Anxiety: No Depression: No Heart Rhythm Problems: No Cancer: No Cardiovascular Problems: Yes (HTN) High Cholesterol: Yes Chemotherapy: No Chest Pain: No Congestive Heart Failure: No COPD: Yes Diabetes: Yes (TYPE 2) Patient Takes Glucophage: No Diminished Hearing: No Endocrine: Yes Gastrointestinal Disorders: No GERD: Yes Genitourinary: No Hypertension: Yes Immune Disorder: No Implanted Vascular Access Dvce: Yes Musculoskeletal: Yes (CHRONIC LOWER BACK PAIN) Neurologic: No Psychiatric: No Reproductive: No Respiratory: Yes (COPD) Immunizations Current: No Radiation Therapy: No Sleep Apnea: No Thyroid Disease: No ?: Not Past Surgical History Abdominal Surgery: Yes (BOWEL RESECTION) Body Medical Devices: Metal plates in left arm Cardiac Surgery: No Eye Surgery: Yes (CATARACT) Gynecologic Surgery: Yes (Hysterectomy ) Hysterectomy: Yes Neurologic Surgery: No Tonsillectomy: Yes Other Surgery: Yes (colostomy reversal) Social History Alcohol Use: No Tobacco Use: Yes (1 PPD) Substance Use: No Allergies-Medications (Allergen,Severity, Reaction): Coded Allergies: morphine (Verified Allergy, Severe, Swelling, 02/12/17) Reported Meds & Prescriptions Reported Meds & Active Scripts Active Zofran Odt (Ondansetron Odt) 4 Mg Tab 4 Mg SL Q8HR PRN [place] (Hydrocodone-Acetaminophen) 10-325 Mg Tab 1 Tab PO Q6H PRN 14 Days Reported Prednisone 20 Mg Tab 20 Mg PO DIRECTED 40 MG twice a day x 3 days, then 20 MG daily x 3 days, then 10 MG daily x 3 days Valsartan 320 Mg Tab 320 Mg PO DAILY Calcium 600/Vitamin D3 (Calcium Carbonate-Cholecalciferol) 600-800 Mg-Unit Tab 1 Tab PO DAILY Humulin R Inj (Insulin Human Regular) 1,000 Unit/10 Ml Vial SQ DIRECTED PRN Humulin N Inj (Insulin Human NPH) 1,000 Unit/10 Ml Vial 20 Units SQ DAILY IN THE PM Humulin N Inj (Insulin Human NPH) 1,000 Unit/10 Ml Vial 10 Units SQ DAILY IN THE AM Creon (Amylase/Lipase/Protease) 24,000-76,000-120,000 Units Cap 2-3 Cap PO TIDPC Gabapentin 400 Mg Cap 400 Cap PO TID Zocor (Simvastatin) 80 Mg Tab 80 Mg PO DAILY Potassium Chloride ER (Potassium Chloride) 10 Meq Tab 10 Meq PO DAILY Flexeril (Cyclobenzaprine HCl) 10 Mg Tab 10 Mg PO BID Protonix (Pantoprazole Sodium) 40 Mg Tab 40 Mg PO DAILY Celexa (Citalopram Hydrobromide) 40 Mg Tab 40 Mg PO DAILY Requip (Ropinirole HCl) 0.5 Mg Tab 0.5 Mg PO HS Amitriptyline (Amitriptyline HCl) 10 Mg Tab 10 Mg PO DAILY Reglan (Metoclopramide HCl) 10 Mg Tab 10 Mg PO TIDAC Review of Systems Except as stated in HPI: all other systems reviewed are Neg HENT: No: Headaches, Neck Pain Cardiovascular: No: Chest Pain or Discomfort Respiratory: No: Shortness of Breath Gastrointestinal: No: Nausea, Vomiting Musculoskeletal: Positive: Limited ROM, Pain, No: Edema Neurologic: No: Paresthesia, Sensory Disturbance Physical Exam Narrative GENERAL: Awake, alert, nontoxic-appearing 82-year-old female who appears her stated age and is in no acute respiratory distress. SKIN: Focused skin assessment warm/dry. HEAD: Atraumatic. Normocephalic. EYES: Pupils equal and round. No scleral icterus. No injection or drainage. ENT: No nasal bleeding or discharge. Breath smells of tobacco. NECK: Trachea midline. No JVD. CARDIOVASCULAR: Regular rate and rhythm. No murmur appreciated. RESPIRATORY: No accessory muscle use. Clear to auscultation. Breath sounds equal bilaterally. GASTROINTESTINAL: Abdomen soft, non-tender, nondistended. Hepatic and splenic margins not palpable. MUSCULOSKELETAL: Left upper extremities noted to have some ecchymosis over the lateral posterior aspect of the proximal left humerus. Well-healed scar noted over the humerus. Patient is tender palpation of left shoulder and proximal left humerus. Limited ability to abduct or extend the left shoulder. Flexion extension left elbow exacerbates pain, but patient is nontender to palpation over the left elbow. Patient is missing digits 2 and 3 of the left hand. Positive left radial pulse. The patient is able to extend the left wrist. Limited ability to supinate and pronate the left forearm secondary to left shoulder pain. NEUROLOGICAL: Awake and alert. No obvious cranial nerve deficits. Motor grossly within normal limits. Normal speech. Sensation is intact to the radial , median, and ulnar distribution of the left hand. PSYCHIATRIC: Appropriate mood and affect; insight and judgment normal. Data Data Last Documented VS Vital Signs Date Time Temp Pulse Resp B/P (MAP) Pulse Ox O2 Delivery O2 Flow Rate FiO2 02/12/17 01:34 106 24 02/12/17 01:30 98.9 142/90 (107) 95 Orders Orders Shoulder, Limited(2vws) (02/12/17 ) Chest, Single Ap (02/12/17 ) Hydromorphone Pf Inj (Dilaudid Pf Inj) (02/12/17 01:45) Ondansetron Inj (Zofran Inj) (02/12/17 01:45) Sodium Chlor 0.9% 250 Ml Inj (Ns 250 Ml (02/12/17 01:45) Creatine Kinase (Cpk) (02/12/17 01:33) Lactic Acid (02/12/17 01:33) Basic Metabolic Panel (Bmp) (02/12/17 01:33) Complete Blood Count With Diff (02/12/17 01:33) Hydromorphone Pf Inj (Dilaudid Pf Inj) (02/12/17 02:30) Labs Laboratory Tests Test 02/12/17 01:45 White Blood Count 13.0 TH/MM3 Red Blood Count 4.60 MIL/MM3 Hemoglobin 14.5 GM/DL Hematocrit 42.2 % Mean Corpuscular Volume 91.8 FL Mean Corpuscular Hemoglobin 31.5 PG Mean Corpuscular Hemoglobin Concent 34.3 % Red Cell Distribution Width 14.9 % Platelet Count 338 TH/MM3 Mean Platelet Volume 8.5 FL Neutrophils (%) (Auto) 79.6 % Lymphocytes (%) (Auto) 12.5 % Monocytes (%) (Auto) 5.5 % Eosinophils (%) (Auto) 1.4 % Basophils (%) (Auto) 1.0 % Neutrophils # (Auto) 10.3 TH/MM3 Lymphocytes # (Auto) 1.6 TH/MM3 Monocytes # (Auto) 0.7 TH/MM3 Eosinophils # (Auto) 0.2 TH/MM3 Basophils # (Auto) 0.1 TH/MM3 CBC Comment DIFF FINAL Differential Comment Blood Urea Nitrogen 20 MG/DL Creatinine 0.90 MG/DL Random Glucose 188 MG/DL Calcium Level 9.3 MG/DL Sodium Level 130 MEQ/L Potassium Level 4.3 MEQ/L Chloride Level 98 MEQ/L Carbon Dioxide Level 22.7 MEQ/L Anion Gap 9 MEQ/L Estimat Glomerular Filtration Rate 60 ML/MIN Lactic Acid Level 1.2 mmol/L Total Creatine Kinase 83 U/L [facility] Medical Decision Making Medical Screen Exam Complete: Yes Emergency Medical Condition: Yes Medical Record Reviewed: Yes Interpretation(s) Laboratory Tests Test 02/12/17 01:45 White Blood Count 13.0 TH/MM3 Red Blood Count 4.60 MIL/MM3 Hemoglobin 14.5 GM/DL Hematocrit 42.2 % Mean Corpuscular Volume 91.8 FL Mean Corpuscular Hemoglobin 31.5 PG Mean Corpuscular Hemoglobin Concent 34.3 % Red Cell Distribution Width 14.9 % Platelet Count 338 TH/MM3 Mean Platelet Volume 8.5 FL Neutrophils (%) (Auto) 79.6 % Lymphocytes (%) (Auto) 12.5 % Monocytes (%) (Auto) 5.5 % Eosinophils (%) (Auto) 1.4 % Basophils (%) (Auto) 1.0 % Neutrophils # (Auto) 10.3 TH/MM3 Lymphocytes # (Auto) 1.6 TH/MM3 Monocytes # (Auto) 0.7 TH/MM3 Eosinophils # (Auto) 0.2 TH/MM3 Basophils # (Auto) 0.1 TH/MM3 CBC Comment DIFF FINAL Differential Comment Blood Urea Nitrogen 20 MG/DL Creatinine 0.90 MG/DL Random Glucose 188 MG/DL Calcium Level 9.3 MG/DL Sodium Level 130 MEQ/L Potassium Level 4.3 MEQ/L Chloride Level 98 MEQ/L Carbon Dioxide Level 22.7 MEQ/L Anion Gap 9 MEQ/L Estimat Glomerular Filtration Rate 60 ML/MIN Lactic Acid Level 1.2 mmol/L Total Creatine Kinase 83 U/L Chest x-ray reveals no acute disease X-ray of the left shoulder reveals limited study. Anterior dislocation with chronic changes with suspected chronic fracture involving the humeral head neck. Differential Diagnosis Differential diagnosis includes chronic pain, fracture, dislocation, contusion, hematoma, compartment syndrome, DVT, radiculopathy. Narrative Course IV was established, labs are drawn and sent, and the patient was placed on cardiac telemetry monitoring and continuous pulse oximetry monitoring. X-ray left shoulder and chest were obtained. The patient was administer morphine and Zofran for her symptoms. I did review the EMR, the patient was evaluated by orthopedics in 2016, they will had a discussion with the family regarding surgery, the risk and benefits, the patient chose to have conservative therapy. I had a discussion with the patient's daughter who states the patient just saw her orthopedist 2 weeks ago for same bruising and pain, had an outpatient ultrasound performed at [facility]. I reviewed the patient's ultrasound of the left arm that was performed on January 26, 2017, was negative for DVT. The patient is also followed by a pain interventional list on an outpatient basis, she has an appointment on February 18. CPK is unremarkable. Lactic acid is 1.2, no evidence of ischemia or rhabdomyolysis. Chest x-ray is unremarkable. X-ray of the left shoulder reveals anterior dislocation with chronic fracture changes, however, when I compare the x-ray findings to previous chest x-rays since 2016, there are no significant changes and the placement of the patient's left humerus and humeral head. I do not believe this is an acute dislocation. I had a discussion with the daughter regarding sling, however, the patient's daughter states that a sling usually exacerbates her pain. She was administered a second dose of Dilaudid for pain. She will be discharged home and is advised to follow-up with her orthopedist and chronic pain physician. Diagnosis Primary Impression: Chronic dislocation of left shoulder Patient Instructions: General Instructions Additional Instructions: Follow-up with the orthopedic surgeon and chronic pain interventional list. Continue medications as previously directed. Sling as needed. Med/Other Pt SpecificInfo: No Change to Meds Disposition: 01 DISCHARGE HOME Condition: Stable Eddie Masters MD Feb 12, 2017 02:08
[2017-02-12 02:30] LABS: BICARBONATE 22.7 MEQ/L (21.0-32.0); POTASSIUM 4.3 MEQ/L (3.5-5.1)
--- NOTE | 2017-02-12 03:06 | RADRPT ---
EXAM DATE/TIME: 02/12/2017 02:02 [facility] COMPARISON: CHEST SINGLE AP, July 22, 2016, 23:33. INDICATIONS : Shortness of breath. MEDICAL HISTORY : Chronic obstructive pulmonary disease. SURGICAL HISTORY : None. ENCOUNTER: Initial ACUITY: 2 days PAIN SCORE: 0/10 LOCATION: chest FINDINGS: A single view of the chest demonstrates the lungs to be symmetrically aerated without evidence of mas s, infiltrate or effusion. The cardiomediastinal contours are unremarkable. Chronic erosive changes involving left humeral head and neck. CONCLUSION: No acute disease. Luis Nielsen Jr., MD on February 12, 2017 at 3:04 Board Certified Radiologist. This report was verified electronically.
--- NOTE | 2017-02-12 03:08 | RADRPT ---
EXAM DATE/TIME: 02/12/2017 02:04 [facility] COMPARISON: SHOULDER LEFT LTD (2VWS), March 26, 2016, 12:54. INDICATIONS : Patient complains of left shoulder/proximal humerus pain and bruising. MEDICAL HISTORY : None. SURGICAL HISTORY : Left distal humerus ORIF. ENCOUNTER: Initial ACUITY: 1 week PAIN SCORE: 9/10 LOCATION: Left Shoulder FINDINGS: 2 views of the left shoulder are limited due to the osteopenia. There is felt to be an anterior dislo cation at the glenohumeral joint. There are chronic erosive changes and suspected chronic fracture in volving the humeral head. There is an orthopedic plate partially seen involving the proximal humerus. No acute fracture identified. Soft tissues are unremarkable. CONCLUSION: 1. Limited study. 2. Anterior dislocation. 3. Chronic changes with suspected chronic fracture involving the humeral head/neck. Luis Nielsen Jr., MD on February 12, 2017 at 3:04 Board Certified Radiologist. This report was verified electronically.
[2017-02-12 03:55] VITALS: BP 139/65
== END 2017-02-12 03:58 | disposition home or self-care (01) ==
LOC: NEPE 01:22
DX: M24.412 Recurrent dislocation, left shoulder (principal); M19.90 Unspecified osteoarthritis, unspecified site; I10 Essential (primary) hypertension; E78.00 Pure hypercholesterolemia, unspecified; J44.9 Chronic obstructive pulmonary disease, unspecified; E11.9 Type 2 diabetes mellitus without complications; K21.9 Gastro-esophageal reflux disease without esophagitis; F17.200 Nicotine dependence, unspecified, uncomplicated; Z79.4 Long term (current) use of insulin
CPT/HCPCS: 71010; 73030; 80048; 82550; 83605; 85025; 96374; 96375; 96376; 99284; J1170; J2405; J7050

== ENCOUNTER 2017-02-25 23:21 | Emergency (ER) | payer MEDICARE, MEDICAID ==
[~2017-02-25] VITALS: Ht 162.6 cm; Wt 50.0 kg
[~2017-02-25 23:21] MED LIST changes: -VITA500T PO
[2017-02-25 23:27] VITALS: BP 189/79; PULSE 112; RESP 22; TEMP 98.3; O2SAT 98
[2017-02-25] MEDS ORDERED: DILA8TAB4 PO (23:36)
[2017-02-25] MEDS ORDERED: HYDROmorphone HCL PF 0.5 MG/0.5 ML SYRINGE IM ONE (23:45)
--- NOTE | 2017-02-26 00:28 | RADRPT ---
EXAM DATE/TIME: 02/25/2017 23:54 [facility] COMPARISON: SHOULDER LEFT LTD (2VWS), February 12, 2017, 2:04. INDICATIONS : Patient complains of left shoulder pain. No new injuries. Prior fracture was inoperable as told by georgette arzate. MEDICAL HISTORY : None. SURGICAL HISTORY : Left humerus ORIF. ENCOUNTER: Initial ACUITY: 2 weeks PAIN SCORE: 10/10 LOCATION: Left Shoulder FINDINGS: Two view examination of the left shoulder demonstrates deformity of the humeral head with previous fr acture again seen. There is subluxation inferiorly and anteriorly. Plate and screws are seen along th e midshaft. Bony mineralization is normal. CONCLUSION: Deformity and fracture of the humeral head with anterior/inferior subluxation. Juan Reddy MD on February 26, 2017 at 0:25 Board Certified Radiologist. This report was verified electronically.
[2017-02-26 04:18] VITALS: BP 126/71; PULSE 92; RESP 20; O2SAT 97
[2017-02-26] MEDS ORDERED: HYDROmorphone HCL PF 0.5 MG/0.5 ML SYRINGE IM ONE (05:30)
--- NOTE | 2017-02-26 05:34 | PD ---
HPI Chief Complaint: Pain: Acute or Chronic Time Seen by Provider: 23:38 Travel History International Travel<30 days: No Contact w/Intl Traveler<30days: No Traveled to known affect area: No History of Present Illness HPI Patient is an 82 year old female who comes in complaining of left shoulder pain. She has chronic pain from a fracture that did not heal. She says she gets these flares where it starts hurting worse than normal. She has taken several doses of pain medication today without relief. She says this pain is typical for her. She denies chest pain or SOB. She says that her daughter today. PFSH Past Medical History Arthritis: Yes Asthma: No Blood Disorders: No Anxiety: No Depression: No Heart Rhythm Problems: No Cancer: No Cardiovascular Problems: Yes (HTN) High Cholesterol: Yes Chemotherapy: No Chest Pain: No Congestive Heart Failure: No COPD: Yes Diabetes: Yes (TYPE 2) Patient Takes Glucophage: No Diminished Hearing: No Endocrine: Yes Gastrointestinal Disorders: Yes GERD: Yes Genitourinary: No Hypertension: Yes Immune Disorder: No Implanted Vascular Access Dvce: Yes Musculoskeletal: Yes (CHRONIC LOWER BACK PAIN) Neurologic: No Psychiatric: No Reproductive: No Respiratory: Yes (COPD) Immunizations Current: No Radiation Therapy: No Sleep Apnea: No Thyroid Disease: No ?: Not Past Surgical History Abdominal Surgery: Yes (BOWEL RESECTION) Body Medical Devices: Metal plates in left arm Cardiac Surgery: No Eye Surgery: Yes (CATARACT) Gynecologic Surgery: Yes (Hysterectomy ) Hysterectomy: Yes Neurologic Surgery: No Tonsillectomy: Yes Other Surgery: Yes (colostomy reversal) Social History Alcohol Use: No Tobacco Use: Yes (1 PPD) Substance Use: No Allergies-Medications (Allergen,Severity, Reaction): Coded Allergies: morphine (Verified Allergy, Severe, Swelling, 02/25/17) Reported Meds & Prescriptions Reported Meds & Active Scripts Active Zofran Odt (Ondansetron Odt) 4 Mg Tab 4 Mg SL Q8HR PRN [place] (Hydrocodone-Acetaminophen) 10-325 Mg Tab 1 Tab PO Q6H PRN 14 Days Reported Dilaudid (Hydromorphone HCl) 8 Mg Tab 8 Mg PO DAILY PRN Prednisone 20 Mg Tab 20 Mg PO DIRECTED 40 MG twice a day x 3 days, then 20 MG daily x 3 days, then 10 MG daily x 3 days Valsartan 320 Mg Tab 320 Mg PO DAILY Calcium 600/Vitamin D3 (Calcium Carbonate-Cholecalciferol) 600-800 Mg-Unit Tab 1 Tab PO DAILY Humulin R Inj (Insulin Human Regular) 1,000 Unit/10 Ml Vial SQ DIRECTED PRN Humulin N Inj (Insulin Human NPH) 1,000 Unit/10 Ml Vial 20 Units SQ DAILY IN THE PM Creon (Amylase/Lipase/Protease) 24,000-76,000-120,000 Units Cap 2-3 Cap PO TIDPC Gabapentin 400 Mg Cap 400 Cap PO TID Zocor (Simvastatin) 80 Mg Tab 80 Mg PO DAILY Potassium Chloride ER (Potassium Chloride) 10 Meq Tab 10 Meq PO DAILY Flexeril (Cyclobenzaprine HCl) 10 Mg Tab 10 Mg PO BID Protonix (Pantoprazole Sodium) 40 Mg Tab 40 Mg PO DAILY Celexa (Citalopram Hydrobromide) 40 Mg Tab 40 Mg PO DAILY Requip (Ropinirole HCl) 0.5 Mg Tab 0.5 Mg PO HS Amitriptyline (Amitriptyline HCl) 10 Mg Tab 10 Mg PO DAILY Reglan (Metoclopramide HCl) 10 Mg Tab 10 Mg PO TIDAC Review of Systems General / Constitutional: No: Fever, Chills HENT: No: Headaches, Lightheadedness Cardiovascular: No: Chest Pain or Discomfort Respiratory: No: Shortness of Breath Gastrointestinal: No: Nausea, Vomiting Musculoskeletal: Positive: Limited ROM, Pain Skin: No Rash, No Itching Neurologic: No: Weakness, Dizziness Physical Exam Narrative GENERAL: Awake and alert, in no acute distress. SKIN: Focused skin assessment warm/dry. Ecchymosis over the left upper arm. HEAD: Atraumatic. Normocephalic. EYES: Pupils equal and round. No scleral icterus. ENT: Mucous membranes pink and moist. CARDIOVASCULAR: Regular rate and rhythm. No murmur appreciated. RESPIRATORY: No accessory muscle use. Clear to auscultation. Breath sounds equal bilaterally. MUSCULOSKELETAL: No obvious deformities. No clubbing. No cyanosis. No edema. Tender to palpation of the left humerus. Radial pulse intact. NEUROLOGICAL: Awake and alert. No obvious cranial nerve deficits. Motor grossly within normal limits. Normal speech. Data Data Last Documented VS Vital Signs Date Time Temp Pulse Resp B/P (MAP) Pulse Ox O2 Delivery O2 Flow Rate FiO2 02/26/17 04:18 92 20 126/71 (89) 97 Room Air 02/25/17 23:27 98.3 Orders Orders Hydromorphone Pf Inj (Dilaudid Pf Inj) (02/25/17 23:45) Shoulder, Limited(2vws) (02/25/17 ) MDM Medical Decision Making Medical Screen Exam Complete: Yes Emergency Medical Condition: Yes Medical Record Reviewed: Yes Differential Diagnosis exacerbation of chronic pain vs fracture vs sprain Narrative Course Patient is a 82 year old who comes in complaining of worsening chronic shoulder pain. Exam shows ecchymosis over the left humerus, she says this happens when she has a flare of her pain. Given IM dilaudid with improvement of her symptoms. She is asking to rest and have one more dose of pain medication before going home. Advised to follow up with her doctors. Advised to return to the ED as needed for any worsening symptoms. Diagnosis Primary Impression: Shoulder pain, left Qualified Codes: M25.512 - Pain in left shoulder; G89.29 - Other chronic pain Patient Instructions: General Instructions, Shoulder Pain (ED) Additional Instructions: Follow up with your doctors. Return to the ED as needed for any worsening symptoms. Disposition: 01 DISCHARGE HOME Condition: Stable Toshia Mckeon MD Feb 26, 2017 05:34
[2017-02-26 06:01] VITALS: BP 151/78; PULSE 92; RESP 22; O2SAT 95
[2017-02-26 07:20] VITALS: BP 114/58; PULSE 81; RESP 18; O2SAT 95
== END 2017-02-26 08:58 | disposition home or self-care (01) ==
LOC: NEPC 23:21
DX: M25.512 Pain in left shoulder (principal); G89.29 Other chronic pain; E11.9 Type 2 diabetes mellitus without complications; I10 Essential (primary) hypertension; F17.200 Nicotine dependence, unspecified, uncomplicated; Z79.4 Long term (current) use of insulin
CPT/HCPCS: 73030; 96372; 99284; J1170

== ENCOUNTER 2017-04-17 11:21 | Emergency (ER) | payer MEDICARE, MEDICAID ==
[~2017-04-17] VITALS: Ht 160 cm; Wt 67.0 kg
[~2017-04-17 11:21] MED LIST changes: +CYCL10TA PO; -CYCL1TAB29 PO; +DILA8TAB4 PO
[2017-04-17 11:23] VITALS: BP 134/57; PULSE 99; RESP 26; TEMP 97.7; O2SAT 89
[2017-04-17] MEDS ORDERED: RESP: ALBUTEROL 2.5 MG/3 ML NEB (SCH) INH ONE (11:45)
--- NOTE | 2017-04-17 12:13 | PD ---
HPI Chief Complaint: Fall Time Seen by Provider: 11:39 Travel History International Travel<30 days: No Contact w/Intl Traveler<30days: No Traveled to known affect area: No History of Present Illness HPI 82-year-old female arrives complaining of pain in the left forehead and involving left wrist. She slipped while walking into the bathroom on wet tile. She struck the left forehead and left arm upon falling. She denies loss of consciousness. Left forearm pain is constant and worse with palpation/active range of motion. No vomiting. She has had multiple prior falls. Onset sudden. Timing constant. No anticoagulant use. PFSH Past Medical History Arthritis: Yes Asthma: No Blood Disorders: No Anxiety: No Depression: No Heart Rhythm Problems: No Cancer: No Cardiovascular Problems: Yes (HTN) High Cholesterol: Yes Chemotherapy: No Chest Pain: No Congestive Heart Failure: No COPD: Yes Diabetes: Yes Patient Takes Glucophage: No Diminished Hearing: No Endocrine: Yes Gastrointestinal Disorders: Yes GERD: Yes Genitourinary: No Hypertension: Yes Immune Disorder: No Implanted Vascular Access Dvce: Yes Musculoskeletal: Yes (CHRONIC LOWER BACK PAIN) Neurologic: No Psychiatric: No Reproductive: No Immunizations Current: No Radiation Therapy: No Sleep Apnea: No Thyroid Disease: No Past Surgical History Abdominal Surgery: Yes (BOWEL RESECTION) Body Medical Devices: Metal plates in left arm Cardiac Surgery: No Eye Surgery: Yes (CATARACT) Gynecologic Surgery: Yes (Hysterectomy ) Hysterectomy: Yes Neurologic Surgery: No Tonsillectomy: Yes Other Surgery: Yes (colostomy reversal) Social History Alcohol Use: No Tobacco Use: Yes (1 PPD) Substance Use: No Allergies-Medications (Allergen,Severity, Reaction): Coded Allergies: morphine (Verified Allergy, Severe, Swelling, 02/25/17) Reported Meds & Prescriptions Reported Meds & Active Scripts Active Zofran Odt (Ondansetron Odt) 4 Mg Tab 4 Mg SL Q8HR PRN Reported Hydrocodone-Acetamin 10-325 mg (Hydrocodone/Acetaminophen) 10 Mg-325 Mg Tablet 1 Tab PO TID PRN Dilaudid (Hydromorphone HCl) 8 Mg Tab 8 Mg PO DAILY Valsartan 320 Mg Tab 320 Mg PO DAILY Calcium 600/Vitamin D3 (Calcium Carbonate-Cholecalciferol) 600-800 Mg-Unit Tab 1 Tab PO DAILY Humulin R Inj (Insulin Human Regular) 1,000 Unit/10 Ml Vial SQ DIRECTED PRN Humulin N Inj (Insulin Human NPH) 1,000 Unit/10 Ml Vial 20 Units SQ DAILY IN THE PM Creon (Amylase/Lipase/Protease) 24,000-76,000-120,000 Units Cap 2-3 Cap PO TIDPC Gabapentin 400 Mg Cap 400 Mg PO TID Zocor (Simvastatin) 80 Mg Tab 80 Mg PO DAILY Potassium Chloride ER (Potassium Chloride) 10 Meq Tab 10 Meq PO DAILY Flexeril (Cyclobenzaprine HCl) 10 Mg Tab 10 Mg PO BID Protonix (Pantoprazole Sodium) 40 Mg Tab 40 Mg PO DAILY Celexa (Citalopram Hydrobromide) 40 Mg Tab 40 Mg PO DAILY Requip (Ropinirole HCl) 0.5 Mg Tab 0.5 Mg PO HS Amitriptyline (Amitriptyline HCl) 10 Mg Tab 10 Mg PO DAILY Reglan (Metoclopramide HCl) 10 Mg Tab 10 Mg PO TIDAC Review of Systems Except as stated in HPI: all other systems reviewed are Neg General / Constitutional: No: Fever Physical Exam Narrative GENERAL: 82-year-old female well-nourished well-developed SKIN: Warm and dry. HEAD: Atraumatic. Normocephalic. Minimal ecchymosis overlying the region of the left supraorbital ridge. Minimal ecchymosis overlying the region of the mentum of the chin towards the right. EYES: Pupils equal and round. No scleral icterus. No injection or drainage. ENT: No nasal bleeding or discharge. Mucous membranes pink and moist. NECK: Trachea midline. No JVD. CARDIOVASCULAR: Regular rate and rhythm. RESPIRATORY: No accessory muscle use. Clear to auscultation. Breath sounds equal bilaterally. GASTROINTESTINAL: Abdomen soft, non-tender, nondistended. Hepatic and splenic margins not palpable. MUSCULOSKELETAL: Extremities without clubbing, cyanosis, or edema. No obvious deformities. 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 2+ radial artery pulse bilaterally. Ecchymosis about the left forearm. Hand plant buyer equal bilaterally. PSYCHIATRIC: Appropriate mood and affect; insight and judgment normal. Data Data Last Documented VS Vital Signs Date Time Temp Pulse Resp B/P (MAP) Pulse Ox O2 Delivery O2 Flow Rate FiO2 04/17/17 11:40 87 Room Air 04/17/17 11:23 97.7 99 26 134/57 (82) VS reviewed Orders Orders Ct Brain W/O Iv Contrast(Rout) (04/17/17 11:43) Wrist, Complete ([id number]) (04/17/17 11:43) Chest, Single Ap (04/17/17 11:43) Albuterol Neb (Albuterol Neb) (04/17/17 11:45) Splinting (04/17/17 ) Ed Discharge Order (04/17/17 13:15) MDM Medical Decision Making Medical Screen Exam Complete: Yes Emergency Medical Condition: Yes Medical Record Reviewed: Yes Differential Diagnosis ICH, fracture humeral head, forearm fracture, scalp contusion Narrative Course Last 24 hours Impressions Wrist X-Ray 04/17/17 1143 Signed Impressions: Service Date/Time: Monday, April 17, 2017 11:54 - CONCLUSION: 1. Slightly comminuted distal ulnar fracture, as above. Stanton Mckee MD Head CT 04/17/17 1143 Signed Impressions: Service Date/Time: Monday, April 17, 2017 12:08 - CONCLUSION: 1. Senescent changes without acute intracranial abnormality. 2. Right maxillary sinus mucosal sinus disease and trace fluid, likely sinusitis. No definite facial fracture. Stanton Mckee MD Chest X-Ray 04/17/17 1143 Signed Impressions: Service Date/Time: Monday, April 17, 2017 12:01 - CONCLUSION: 1. One no acute abnormality or significant interval change. Stanton Mckee MD L ulna fracture noted Pt will undergo splinting with sling placement Follow up with ortho Daughter requested admission Case management d/w with pt and daughter Pt will be disposition to home Face to face home health care orders placed SPlint and sling positioned Diagnosis Primary Impression: Ulna distal fracture Qualified Codes: S52.602A - Unspecified fracture of lower end of left ulna, initial encounter for closed fracture Additional Impression: Fall Qualified Codes: W19.XXXA - Unspecified fall, initial encounter Referrals: Rakesh Tate MD 2 days Med/Other Pt SpecificInfo: No Change to Meds Disposition: 01 DISCHARGE HOME Condition: Stable Shorty Lane MD Apr 17, 2017 12:13
[2017-04-17] MEDS ORDERED: HYDR-3583 PO (12:15)
--- NOTE | 2017-04-17 12:19 | RADRPT ---
EXAM DATE/TIME: 04/17/2017 12:01 [facility] COMPARISON: CHEST SINGLE AP, February 12, 2017, 2:02. INDICATIONS : Shortness of breath. MEDICAL HISTORY : Chronic obstructive pulmonary disease. SURGICAL HISTORY : ORIF left arm. ENCOUNTER: Initial ACUITY: 1 day PAIN SCORE: 0/10 LOCATION: Bilateral chest FINDINGS: Diffuse interstitial prominence without new focal pleural or parenchymal opacities. Cardiomediastinal contours are stable. Chronic erosive changes involving the proximal left humerus. CONCLUSION: 1. One no acute abnormality or significant interval change. Stanton Mckee MD on April 17, 2017 at 12:16 Board Certified Radiologist. This report was verified electronically.
--- NOTE | 2017-04-17 12:24 | RADRPT ---
EXAM DATE/TIME: 04/17/2017 11:54 [facility] COMPARISON: No previous studies available for comparison. INDICATIONS : Left wrist pain. Fall today. MEDICAL HISTORY : Chronic obstructive pulmonary disease. SURGICAL HISTORY : ORIF Left arm. ENCOUNTER: Initial ACUITY: 1 day PAIN SCORE: 0/10 LOCATION: Left wrist. 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 Ther e is a slightly comminuted impacted distal ulnar fracture with ulnar angulation of the distal fragmen t. There is diffuse osteopenia. carpal bones are grossly intact. Soft tissue swelling is in the dista l forearm. CONCLUSION: 1. Slightly comminuted distal ulnar fracture, as above. Stanton Mckee MD on April 17, 2017 at 12:21 Board Certified Radiologist. This report was verified electronically.
--- NOTE | 2017-04-17 12:42 | RADRPT ---
EXAM DATE/TIME: 04/17/2017 12:08 [facility] COMPARISON: No previous studies available for comparison. INDICATIONS : Trauma, fall. RADIATION DOSE: 29.57 CTDIvol (mGy) MEDICAL HISTORY : Hypertension. Chronic obstructive pulmonary disease. diabetes SURGICAL HISTORY : None. ENCOUNTER: Initial ACUITY: 1 day PAIN SCALE: 2/10 LOCATION: Bilateral head TECHNIQUE: Multiple contiguous axial images were obtained of the head. Using automated exposure control and adj ustment of the mA and/or kV according to patient size, radiation dose was kept as low as reasonably a chievable to obtain optimal diagnostic quality images. DICOM format image data is available electro nically for review and comparison. FINDINGS: CEREBRUM: Mild diffuse volume loss with periventricular ischemic white matter hypodensities. The ventricles are normal for degree of atrophy. No evidence of midline shift, mass lesion, hemorrhage or acute infarc tion. No extra-axial fluid collections are seen. POSTERIOR FOSSA: The cerebellum and brainstem are intact. The 4th ventricle is midline. The cerebellopontine angle i s unremarkable. EXTRACRANIAL: The visualized portion of the orbits is intact. Nuchal [place] thickening and small amount of fluid i n the right maxillary sinus. SKULL: The calvaria is intact. No evidence of skull fracture. CONCLUSION: 1. Senescent changes without acute intracranial abnormality. 2. Right maxillary sinus mucosal sinus disease and trace fluid, likely sinusitis. No definite facial fracture. Stanton Mckee MD on April 17, 2017 at 12:39 Board Certified Radiologist. This report was verified electronically.
--- NOTE | 2017-04-17 13:49 | HHI.FF ---
Face to Face Verification Diagnosis: (1) Shoulder dislocation (2) Humeral head fracture (3) Ulna distal fracture (4) Tobacco dependence (5) COPD (chronic obstructive pulmonary disease) Physical Therapy Order: Evaluate and Treat Shank Boner Order: To Evaluate: Living conditions/environment, Support services Order: To Provide: Long range planning, Community services I have seen patient Jeanne Merlos on 04/17/17. My clinical findings support the need for the requested home health care services because: Ltd mobility - disease progression Deconditioned w/ increased weakness Limited ability to care for self High risk of falls I certify that my clinical findings support that this patient is homebound because: Unsteady gait/balance Shorty Lane MD Apr 17, 2017 13:49
[2017-04-17] MEDS ORDERED: oxyCODONE/ACETAMINOPHEN 5 MG/325 MG TAB PO ONE (15:30)
== END 2017-04-17 19:34 | disposition home or self-care (01) ==
LOC: NEPE 11:21
DX: S52.602A Unspecified fracture of lower end of left ulna, initial encounter for closed fracture (principal); F17.200 Nicotine dependence, unspecified, uncomplicated; E11.9 Type 2 diabetes mellitus without complications; E78.00 Pure hypercholesterolemia, unspecified; K21.9 Gastro-esophageal reflux disease without esophagitis; I10 Essential (primary) hypertension; J44.9 Chronic obstructive pulmonary disease, unspecified; W01.0XXA Fall on same level from slipping, tripping and stumbling without subsequent striking against object, initial encounter; Y93.01 Activity, walking, marching and hiking; Y92.002 Bathroom of unspecified non-institutional (private) residence as the place of occurrence of the external cause; Z79.4 Long term (current) use of insulin
CPT/HCPCS: 29125; 70450; 71010; 73110; 94664; 99285; J7613

== ENCOUNTER 2018-03-24 23:51 | Inpatient (IN) ==
--- NOTE | 2018-03-25 00:05 | ED ---
HPI General Chief Complaint: Respiratory Symptoms Stated Complaint: Resp/Blood Sugar Time Seen by Provider: 03/24/18 23:59 Source: EMS Mode of arrival: EMS Limitations: altered mental status History of Present Illness 83-year-old female [facility] with history of dementia presents to the ER today brought in by EMS because apparently the patient has been more disoriented at the facility, yesterday was thought to have had trouble swallowing, was suspected of having aspirated, and today it was noted that her blood sugar was low after she was given insulin. Her blood sugar was 40 at the facility when EMS arrived, and apparently she had been given a shot of glucagon without improvement, EMS gave her D10 and her last blood sugar was 150. She appears to be a bit more alert after the sugar was given but she is still fairly disoriented and having respiratory distress. EMS initiated DuoNeb and a dose of albuterol, put her on BiPAP, but she is still in significant distress. Related Data Home Medications Medication Instructions Recorded Confirmed Unable to Obtain Home Meds 03/25/18 03/25/18 Allergies Allergy/AdvReac Type Severity Reaction Status Date / Time morphine Allergy Severe Swelling Verified 02/25/17 23:27 Review of Systems ROS Unobtainable ROS Unobtainable: unobtainable due to mental status PMFSH History History Provided By: Extension Supervisor / EMT Medical History Medical History Acidosis (Acute) Acute kidney failure (Acute) Altered mental status (Acute) Anxiety (Acute) COPD (chronic obstructive pulmonary disease) (Acute) GERD (gastroesophageal reflux disease) (Acute) HTN (hypertension) (Acute) Hyperkalemia (Acute) Hyperlipidemia (Acute) Hypoxemia (Acute) Low back pain (Acute) Restless leg syndrome (Acute) Dementia (Acute) Diabetes (Acute) Social History Social History Substance History: No History of Abuse Second Hand Smoke Exposure: No Smoking Status: Current every day smoker Tobacco Type: Cigarettes How Often Do You Have a Drink Containing Alcohol: Never Recent Travel in [facility] within the Last 8 Weeks: No Recent Out of Country Travel within the Last 8 Weeks: No Exam Narrative Exam Narrative: GENERAL: Well-developed elderly female patient currently in moderate respiratory distress. Awake, but disoriented. SKIN: Focused skin assessment warm/dry. HEAD: Atraumatic. Normocephalic. EYES: Pupils equal and round. No scleral icterus. No injection or drainage. ENT: No nasal bleeding or discharge. Mucous membranes pink and moist. NECK: Trachea midline. No JVD. CARDIOVASCULAR: Regular rate and rhythm. No murmur appreciated. RESPIRATORY: Moderate accessory muscle use. Decreased breath sounds bilaterally. Breath sounds equal bilaterally. GASTROINTESTINAL: Abdomen soft, non-tender, nondistended. Hepatic and splenic margins not palpable. MUSCULOSKELETAL: No obvious deformities. No clubbing. No cyanosis. No edema. NEUROLOGICAL: Awake and disoriented. No obvious cranial nerve deficits. Motor grossly within normal limits. Normal speech. PSYCHIATRIC: Appropriate mood and affect; insight and judgment poor. Course Initial Documented Vital Signs Pulse Oximetry 97 03/24/18 23:55 Last Documented Vital Signs Pulse Rate 122 H 03/25/18 04:17 Respiratory Rate 24 03/25/18 04:17 Blood Pressure 139/63 03/25/18 04:17 Pulse Oximetry 100 03/25/18 04:17 Medical Decision Making MDM Narrative Medical decision making narrative: Patient appeared tachypneic at first and tachycardic, her blood sugar was down to 70 in the ER and was given D50 in the ER. I have had a discussion with the daughter regarding her CODE STATUS and they confirmed that she is a full code. Initial chest x-ray did not show acute pulmonary processes but does show some scarring in the left lung. At this point , considering her tachycardia and respiratory distress, VQ scan was done, and it shows a high probability PE. IV antibiotics were initiated as well due to elevated white blood cell count. Heparin was initiated in the ER. Case is then discussed with Dr. Draper for admission. Medical Screen Exam Complete: Yes Emergency Medical Condition: Yes Differential Diagnosis Differential Diagnosis: Pneumonia versus COPD exacerbation versus sepsis Lab Data Lab results reviewed: Yes I reviewed the patient's lab results. Result diagrams: 03/25/18 00:08 03/25/18 00:08 Lab Results 03/25/18 03/25/18 03/25/18 Range/Units 00:08 00:08 00:08 WBC 17.6 H (4.0-11.0) th/mm3 RBC 4.59 (4.00-5.30) mil/mm3 Hgb 14.2 (11.6-15.3) gm/dL Hct 41.6 (35.0-46.0) % MCV 90.7 (80.0-100.0) fL MCH 31.0 (27.0-34.0) pg MCHC 34.2 (32.0-36.0) % RDW 14.9 (11.6-17.2) % Plt Count 270 (150-450) th/mm3 MPV 9.0 (7.0-11.0) fL Neut % (Auto) 79.0 H (16.0-70.0) % Lymph % (Auto) 10.8 (9.0-44.0) % Wheeler % (Auto) 8.6 H (0.0-8.0) % Eos % (Auto) 1.2 (0.0-4.0) % Baso % (Auto) 0.4 (0.0-2.0) % Neut # (Auto) 13.9 H (1.8-7.7) th/mm3 Lymph # (Auto) 1.9 (1.0-4.8) th/mm3 Wheeler # (Auto) 1.5 H (0.0-0.9) th/mm3 Eos # (Auto) 0.2 (0.0-0.4) th/mm3 Baso # (Auto) 0.1 (0.0-0.2) th/mm3 WBC Differential . Differential Comment Auto diff final Puncture Site Patient Temperature O2 Saturation (90-100) % ABG pH (7.380-7.420) ABG pCO2 (38-42) mmHg ABG pO2 (61-120) mmHg ABG HCO3 (22-26) mmol/L ABG O2 Content (12.0-20.0) Vol % ABG Base Excess (-2-2) mmol/L ABG Methemoglobin (0-2) % Maksim Test Hemoglobin (12.0-16.0) G/DL Carboxyhemoglobin (0-4) % O2 Delivery Device Vent Setting Inspired O2 % Critical Value Sodium 137 (136-145) meq/L Potassium 3.4 L (3.5-5.1) meq/L Chloride 105 (98-107) meq/L Carbon Dioxide 21.5 (21.0-32.0) meq/L Anion Gap 11 (5-15) meq/L BUN 13 (7-18) mg/dL Creatinine 0.90 (0.50-1.00) mg/dL Estimated GFR 60 L (>89) mL/min Random Glucose 88 (74-106) mg/dL Calcium 9.2 (8.5-10.1) mg/dL Total Bilirubin 0.5 (0.2-1.0) mg/dL AST 20 (15-37) U/L ALT 16 (10-53) U/L Alkaline Phosphatase 112 (45-117) U/L Troponin I Less than 0.02 L (0.02-0.05) ng/mL B-Natriuretic Peptide 19 (0-100) pg/mL Total Protein 8.0 (6.4-8.2) g/dL Albumin 3.8 (3.4-5.0) g/dL Urine Color (Yellw/Straw) Urine Clarity (Clear) Urine pH (5.0-8.5) Ur Specific [place] (1.002-1.035) Urine Protein (Neg-Trace) mg/dL Urine Glucose (UA) (Negative) mg/dL Urine Ketones (Negative) mg/dL Urine Occult Blood (Negative) Urine Nitrate (Negative) Urine Bilirubin (Negative) Urine Urobilinogen (Less than 2) mg/dL Ur Leukocyte Esterase (Negative) Urine RBC (0-3) /hpf Urine WBC (0-5) /hpf Ur Squamous Epith Cells (0-5) /hpf Urine Bacteria (None) /hpf Hyaline Casts (0-3) /lpf Urine Mucus (Occasional) /lpf Micro UA Comment Ur Microscopic Review Urine Culture Comments 03/25/18 03/25/18 Range/Units 00:15 01:20 WBC (4.0-11.0) th/mm3 RBC (4.00-5.30) mil/mm3 Hgb (11.6-15.3) gm/dL Hct (35.0-46.0) % MCV (80.0-100.0) fL MCH (27.0-34.0) pg MCHC (32.0-36.0) % RDW (11.6-17.2) % Plt Count (150-450) th/mm3 MPV (7.0-11.0) fL Neut % (Auto) (16.0-70.0) % Lymph % (Auto) (9.0-44.0) % Wheeler % (Auto) (0.0-8.0) % Eos % (Auto) (0.0-4.0) % Baso % (Auto) (0.0-2.0) % Neut # (Auto) (1.8-7.7) th/mm3 Lymph # (Auto) (1.0-4.8) th/mm3 Wheeler # (Auto) (0.0-0.9) th/mm3 Eos # (Auto) (0.0-0.4) th/mm3 Baso # (Auto) (0.0-0.2) th/mm3 WBC Differential Differential Comment Puncture Site Right radial Patient Temperature 98.6 O2 Saturation 94 (90-100) % ABG pH 7.28 L* (7.380-7.420) ABG pCO2 49 H (38-42) mmHg ABG pO2 76 (61-120) mmHg ABG HCO3 22 (22-26) mmol/L ABG O2 Content 16.6 (12.0-20.0) Vol % ABG Base Excess -3.5 L (-2-2) mmol/L ABG Methemoglobin 0.6 (0-2) % Maksim Test Present Hemoglobin 12.5 (12.0-16.0) G/DL Carboxyhemoglobin 1.0 (0-4) % O2 Delivery Device Bipap Vent Setting Ipap=15 epap=5 Inspired O2 80 % Critical Value Yes Sodium (136-145) meq/L Potassium (3.5-5.1) meq/L Chloride (98-107) meq/L Carbon Dioxide (21.0-32.0) meq/L Anion Gap (5-15) meq/L BUN (7-18) mg/dL Creatinine (0.50-1.00) mg/dL Estimated GFR (>89) mL/min Random Glucose (74-106) mg/dL Calcium (8.5-10.1) mg/dL Total Bilirubin (0.2-1.0) mg/dL AST (15-37) U/L ALT (10-53) U/L Alkaline Phosphatase (45-117) U/L Troponin I (0.02-0.05) ng/mL B-Natriuretic Peptide (0-100) pg/mL Total Protein (6.4-8.2) g/dL Albumin (3.4-5.0) g/dL Urine Color Yellow (Yellw/Straw) Urine Clarity Clear (Clear) Urine pH 5.0 (5.0-8.5) Ur Specific [place] 1.009 (1.002-1.035) Urine Protein Negative (Neg-Trace) mg/dL Urine Glucose (UA) 50 (Negative) mg/dL Urine Ketones Negative (Negative) mg/dL Urine Occult Blood Negative (Negative) Urine Nitrate Negative (Negative) Urine Bilirubin Negative (Negative) Urine Urobilinogen Less than 2 (Less than 2) mg/dL Ur Leukocyte Esterase Small H (Negative) Urine RBC 5 H (0-3) /hpf Urine WBC 16 H (0-5) /hpf Ur Squamous Epith Cells <1 (0-5) /hpf Urine Bacteria Rare H (None) /hpf Hyaline Casts 3 (0-3) /lpf Urine Mucus Few H (Occasional) /lpf Micro UA Comment Cath-culture ind Ur Microscopic Review Not Reportable Urine Culture Comments Cath-cult indicated Imaging Data Attestation: I personally reviewed and interpreted this imaging study as follows : Radiologist's impression: Chest X-Ray 03/25/18 00:01 CONCLUSION: Probable interim but nonacute left hemithorax trauma with healing rib fractures and some associated pleural thickening. Otherwise negative and not significantly changed. Pulmonary Perfusion Imaging 03/25/18 02:20 CONCLUSION: Abnormal pulmonary perfusion, especially the left lung and high probability for pulmonary embolus. Discharge Plan Discharge Details Anticipated Discharge Date: 03/25/18 Physicians Team ED Provider: Amina Ferrer Primary Care Provider: UNKNOWN, Rxs /Orders / Referrals /Forms Prescriptions: No Action Unable to Obtain Home Meds RF: 0 Discharge Interventions Interventions: Vital Signs Last Done: 03/25/18 04:17 Status ED Status: With Doctor
[2018-03-25 00:30] LABS: Baso # (Auto) 0.1 th/mm3 (0.0-0.2); Baso % (Auto) 0.4 % (0.0-2.0); Eos # (Auto) 0.2 th/mm3 (0.0-0.4); Eos % (Auto) 1.2 % (0.0-4.0); Hematocrit 41.6 % (35.0-46.0); Hemoglobin 14.2 gm/dL (11.6-15.3); Lymph # (Auto) 1.9 th/mm3 (1.0-4.8); Lymph % (Auto) 10.8 % (9.0-44.0); Mean Corpuscular HGB Conc 34.2 % (32.0-36.0); Mean Corpuscular Volume 90.7 fL (80.0-100.0); Mono # (Auto) 1.5 th/mm3 (0.0-0.9); Mono % (Auto) 8.6 % (0.0-8.0); Neut # (Auto) 13.9 th/mm3 (1.8-7.7); Platelet Count 270 th/mm3 (150-450); Red Blood Count 4.59 mil/mm3 (4.00-5.30); Red Cell Distribution Width 14.9 % (11.6-17.2); White Blood Count 17.6 th/mm3 (4.0-11.0)
[2018-03-25 00:39] LABS: Alanine Aminotransferase 16 U/L (10-53); Albumin 3.8 g/dL (3.4-5.0); Anion Gap 11 meq/L (5-15); Aspartate Aminotransferase 20 U/L (15-37); Blood Urea Nitrogen 13 mg/dL (7-18); Calcium 9.2 mg/dL (8.5-10.1); Carbon Dioxide 21.5 meq/L (21.0-32.0); Chloride 105 meq/L (98-107); Glomerular Filtration Rate 60 mL/min (>89); Glucose,Random 88 mg/dL (74-106); Potassium 3.4 meq/L (3.5-5.1); Sodium 137 meq/L (136-145)
[2018-03-25 00:45] LABS: Alkaline Phosphatase 112 U/L (45-117)
--- NOTE | 2018-03-25 01:11 | XR ---
EXAM DATE: 03/25/2018 12:58 AM EST AGE/SEX: 83 years / Female INDICATIONS: Short of breath. CLINICAL DATA: This is the patient's initial encounter. Patient reports that signs and symptoms have been present for 1 day and indicates a pain score of 0/10. MEDICAL/SURGICAL HISTORY: Chronic obstructive pulmonary disease. . ORIF left arm. COMPARISON: [facility] [place]ST [place]ING[place], 04/17/2017. . FINDINGS: Patchy opacities are seen laterally of the left hemithorax, appears to represent some pleural thicken ing. I believe there are some associated left lateral rib fractures which appear nonacute but are new since 2017 study. No pneumonia demonstrated. No pleural effusion or pneumothorax. Heart size stable, within normal limits. Chronic destruction of the proximal left humerus again seen. CONCLUSION: Probable interim but nonacute left hemithorax trauma with healing rib fractures and some associated p leural thickening. Otherwise negative and not significantly changed. Electronically signed by: Valeriy Sethi MD 03/25/2018 1:10 AM EST
[2018-03-25 01:23] LABS: ABG Base Excess -3.5 mmol/L (-2-2); ABG PCO2 49 mmHg (38-42); ABG PO2 76 mmHg (61-120)
[2018-03-25] MEDS ORDERED: Dextrose 50% in Water 50 ML Vial IV.PUSH ONE (01:25)
[2018-03-25 01:48] LABS: Bacteria,Urine Rare /hpf; Bilirubin,Urine Negative (Negative); Clarity,Urine Clear (Clear); Color,Urine Yellow (Yellw/Straw); Glucose,Urine (UA) 50 mg/dL (Negative); Hyaline Casts,Urine 3 /lpf (0-3); Leukocyte Esterase,Urine Small (Negative); Mucus,Urine Few /lpf (Occasional); Nitrite,Urine Negative (Negative); Specific Gravity,Urine 1.009 (1.002-1.035); Squamous Epithelial Cell,Urine <1 /hpf (0-5)
[2018-03-25] MEDS ORDERED: Azithromycin Inj 500 MG in Sodium Chlor 0.9% Inj 250 ML IV.SIG ONE (04:56)
--- NOTE | 2018-03-25 05:38 | NM ---
EXAM DATE: 03/25/2018 5:32 AM EST AGE/SEX: 83 years / Female INDICATIONS: Respiratory distress. CLINICAL DATA: This is the patient's initial encounter. Patient reports that signs and symptoms have been present for 1 day and indicates a pain score of 0/10. MEDICAL/SURGICAL HISTORY: Chronic obstructive pulmonary disease. Diabetes mellitus type II. H ypercholesterolemia. Hypertension. Acute kidney failure. Altered mental status. GERD. None. COMPARISON: [facility], CHEST 1V SINGLE AP, 03/25/2018. . DOSE: 1.1 mCi Tc99m DTPA aerosol 8.8 mCi Tc99m MAA IV TECHNIQUE: Following five minutes of tidal breathing of DTPA aerosol, planar images of the lungs wer e performed in eight projections. The patient was then injected with MAA, and eight-view perfusion s can was performed. FINDINGS: Comparison radiograph shows mild pleural and peripheral parenchymal opacities laterally of the left h emithorax. Right lung appears reasonably clear. No pleural effusion seen on either side. There is diffuse heterogeneity of ventilation, left much more so than right. There is diffusely heterogeneous left lung perfusion. Very small, scattered areas of slightly decreas ed perfusion are seen in the periphery of the right lung. CONCLUSION: Abnormal pulmonary perfusion, especially the left lung and high probability for pulmonar y embolus. Electronically signed by: Valeriy Sethi MD 03/25/2018 5:36 AM EST
[2018-03-25] MEDS ORDERED: Heparin 10,000 UNITS/10 ML Vial (for IV use) IV.PUSH STA (05:45)
[2018-03-25] MEDS ORDERED: Dextrose 50% in Water 50 ML Vial IV.PUSH PRN (06:16)
[2018-03-25] MEDS ORDERED: Bisacodyl 10 MG Supp RECTAL PRN (06:17)
[2018-03-25] MEDS ORDERED: Sodium Chloride 0.9% 2 ML Flush PRN IV.FLUSH (06:22)
[2018-03-25] MEDS: Heparin Drip 25,000 UNIT/250 ML BAG IV.CONT PRN (07:35)
[2018-03-25 07:38] LABS: Prothrombin Time 10.5 sec (9.8-11.6)
--- NOTE | 2018-03-25 08:11 | P.HPIM ---
History of Present Illness Primary Care Physician: UNKNOWN Chief Complaint: altered mental status History of Present Illness: patient is a 83 y/o female with history of dementia, diabetes and chronic back pain was sent to ER because of altered mental status. information is limited due to her mental condition. per the ER note the patient was suspected to aspirate yesterday with some changes in her mental status. she was found to have a low blood sugar for which she received a dose of Glucagon and D10. at the time of my evaluation she was in no acute distress, with mild generalized abdominal pain. as mentioned earlier patient is a poor historian. Inpatient Certification: I certify that the inpatient services were ordered in accordance with Medicare regulations governing the order. This includes certification that hospital inpatient services are reasonable and necessary and in the case of services not specified as inpatient-only under 42 CFR 419.22(n), that they are appropriately provided as inpatient services in accordance to with the 2-midnight benchmark under 43 CFR 412.3(e) Estimated Total Length of Stay (Days): 3 Plans for Post Hospital Care: SNF Review of Systems unobtainable due to mental condition PMFSH - History History Provided By: Insurance Assistant / EMT - Medical History Medical History: Medical History (Last Reviewed 03/25/18 @ 08:06 by Hao Castellanos MD) Acidosis Acute kidney failure Altered mental status Anxiety COPD (chronic obstructive pulmonary disease) GERD (gastroesophageal reflux disease) HTN (hypertension) Hyperkalemia Hyperlipidemia Hypoxemia Low back pain Restless leg syndrome Dementia Diabetes - Surgical History Surgical History: Surgical History (Last Updated 03/25/18 @ 08:06 by Hao Castellanos MD) Previous back surgery - Family History Family History: Family History (Last Updated 03/25/18 @ 08:06 by Hao Castellanos MD) Other No pertinent family history - Tobacco History Second Hand Smoke Exposure: No Tobacco Use In Past 30 Days: Yes Smoking Status: Current every day smoker Tobacco Type: Cigarettes - Alcohol History How Often Do You Have a Drink Containing Alcohol: Never - Substance Use History Substance History: No History of Abuse - Travel History Recent Travel in the [place] Within the Last 8 Weeks: No Recent Travel Out of the Country Within the Last 8 Weeks: No - Immunization History Tetanus Immunization: Unsure Medications and Allergies Active Medications: Active Medications Acetaminophen (Tylenol) 650 mg PO Q4H PRN PRN Reason: Temp > 100.4 Bisacodyl (Dulcolax Supp) 10 mg RECTAL DAILY PRN PRN Reason: SEVERE CONSITIPATION Dextrose (D50w Vial) 50 ml IV.PUSH UNSCH PRN PRN Reason: PER HYPOGLYCEMIA PROTOCOL Glucagon (Glucagon Inj) 1 mg OTHER UNSCH PRN PRN Reason: PER HYPOGLYCEMIA PROTOCOL Heparin Sodium/Dextrose (Heparin/D5w 25,000 U/250 Ml) 25,000 unit in 250 mls @ 0 mls/hr IV.CONT TITRATE PRN; Protocol PRN Reason: Per Protocol Last Admin: 03/25/18 07:35 Dose: 1,300 units/hr, 13 mls/hr Ondansetron HCl (Zofran Inj) 4 mg IV.PUSH Q6H PRN PRN Reason: NAUSEA OR VOMITING Sennosides (Senokot) 17.2 mg PO Q12H PRN PRN Reason: Moderate Constipation Sodium Chloride (Ns Flush) 2 ml IV.FLUSH BID CARLYLE Sodium Chloride (Ns Flush) 2 ml IV.FLUSH PRN PRN PRN Reason: FLUSH AFTER USING IV ACCESS Allergies Allergy/AdvReac Type Severity Reaction Status Date / Time morphine Allergy Severe Swelling Verified 02/25/17 23:27 Home Medications Medication Instructions Recorded Confirmed Type amitriptyline 10 mg PO HS 03/25/18 03/25/18 History ascorbic acid (vitamin C) 500 mg PO DAILY 03/25/18 03/25/18 History fluticasone-vilanterol [Breo 1 inh INHALATION DAILY 03/25/18 03/25/18 History Ellipta] gabapentin 200 mg PO TID 03/25/18 03/25/18 History hydromorphone 12 mg PO Q24H 03/25/18 03/25/18 History insulin glargine [Lantus U-100 20 unit SUBCUT HS 03/25/18 03/25/18 History Insulin] insulin regular human [Humulin R 1 sliding scale dose SUBCUT UD 03/25/18 History Regular U-100 Insuln] megestrol 20 mg PO DAILY 03/25/18 03/25/18 History mirtazapine [Remeron SolTab] 15 mg PO HS 03/25/18 03/25/18 History olopatadine 2 drp EACH EYE BID 03/25/18 03/25/18 History pantoprazole 40 mg PO DAILY 03/25/18 03/25/18 History simvastatin 80 mg PO QPM 03/25/18 03/25/18 History tiotropium bromide [Spiriva with 1 cap INHALATION DAILY 03/25/18 03/25/18 History HandiHaler] Exam Vital signs: Vital Signs 03/24/18 23:55 03/25/18 00:03 03/25/18 01:15 Pulse Rate 122 H Respiratory Rate 32 H Blood Pressure 153/72 H Pulse Oximetry 97 100 100 03/25/18 01:20 03/25/18 02:04 03/25/18 02:30 Pulse Rate 115 H 100 H 122 H Respiratory Rate 30 H 30 H Blood Pressure 138/82 140/84 Pulse Oximetry 100 100 03/25/18 02:40 03/25/18 02:55 03/25/18 03:36 Pulse Rate 110 H 117 H 120 H Respiratory Rate 28 H 29 H 28 H Blood Pressure 149/84 H Pulse Oximetry 03/25/18 04:17 03/25/18 06:00 Pulse Rate 122 H 118 H Respiratory Rate 24 25 H Blood Pressure 139/63 Pulse Oximetry 100 98 Intake & Output 03/24/18 03/25/18 03/25/18 18:59 06:59 18:59 Intake Total 100 / 100 250 / 250 Balance 100 / 100 250 / 250 Weight 72.575 kg Intake: IV 100 / 100 250 / 250 Azithromycin Inj 500 MG In NS 250 / 250 Inj 250 ML @ 250 mls/hr IV.SIG ONCE ONE Rx#:[id number] Maxipime Inj 2,000 MG In NS Inj 100 / 100 100 ML @ 200 mls/hr IV.SIG ONCE ONE Rx#:[id number] - Constitutional no acute distress - Routine HEENT Exam Eye: Present: PERRL - Routine Neck Exam Present: supple - Routine Respiratory Exam Present: CTA bilaterally - Routine Cardiovascular Exam Present: RRR - Routine Abdominal Exam Present: soft - Routine Extremities Exam Comments: no pedal edema. - Routine Neurological Exam awake but not oriented to place or time. Results - Labs CBC & Chem 7: 03/25/18 00:08 03/25/18 00:08 Labs: Short CBC 03/25/18 Range/Units 00:08 WBC 17.6 H (4.0-11.0) th/mm3 Hgb 14.2 (11.6-15.3) gm/dL Hct 41.6 (35.0-46.0) % Plt Count 270 (150-450) th/mm3 BMP 03/25/18 00:08 Sodium 137 Potassium 3.4 L Chloride 105 Carbon Dioxide 21.5 BUN 13 Creatinine 0.90 Calcium 9.2 Cardiac Enzymes 03/25/18 Range/Units 00:08 Troponin I Less than 0.02 L (0.02-0.05) ng/mL Liver Function 03/25/18 Range/Units 00:08 Total Bilirubin 0.5 (0.2-1.0) mg/dL AST 20 (15-37) U/L ALT 16 (10-53) U/L Alkaline Phosphatase 112 (45-117) U/L Albumin 3.8 (3.4-5.0) g/dL Urine 03/25/18 Range/Units 01:20 Urine Color Yellow (Yellw/Straw) Urine Clarity Clear (Clear) Urine pH 5.0 (5.0-8.5) Ur Specific [place] 1.009 (1.002-1.035) Urine Protein Negative (Neg-Trace) mg/dL Urine Glucose (UA) 50 (Negative) mg/dL - Imaging Impressions Chest X-Ray 03/25/18 00:01 CONCLUSION: Probable interim but nonacute left hemithorax trauma with healing rib fractures and some associated pleural thickening. Otherwise negative and not significantly changed. Pulmonary Perfusion Imaging 03/25/18 02:20 CONCLUSION: Abnormal pulmonary perfusion, especially the left lung and high probability for pulmonary embolus. Caprini VTE Risk Assessment Caprini VTE Risk Assessment: Moderate/High Risk (score >= 2) Caprini Risk Assessment Model: Point Value = 1 Point Value = 2 Point Value = 3 Point Value = 5 Age 41-60 Minor surgery BMI > 25 kg/m2 Swollen legs Varicose veins or History of unexplained or recurrent spontaneous Oral contraceptives or hormone replacement Sepsis (< 1 month) Serious lung disease, including pneumonia (< 1 month) Abnormal pulmonary function Acute myocardial infarction Congestive heart failure (< 1 month) History of inflammatory bowel disease Medical patient at bed rest Age 61-74 Arthroscopic surgery Major open surgery (> 45 min) Laparoscopic surgery (> 45 min) Malignancy Confined to bed (> 72 hours) Immobilizing plaster cast Central venous access Age >= 75 History of VTE Family history of VTE Factor V Leiden Prothrombin [id number] Lupus anticoagulant Anticardiolipin antibodies Elevated serum homocysteine Heparin-induced thrombocytopenia Other congenital or acquired thrombophilia Stroke (< 1 month) Elective arthroplasty Hip, pelvis, or leg fracture Acute spinal cord injury (< 1 month) Prophylaxis Regimen: Total Risk Factor Score Risk Level Prophylaxis Regimen 0-1 Low Early ambulation 2 Moderate Order ONE of the following: *Sequential Compression Device (SCD) *Heparin 5000 units SQ BID 3-4 Higher Order ONE of the following medications: *Heparin 5000 units SQ TID *Enoxaparin/Lovenox 40 mg SQ daily (WT < 150 kg, CrCl > 30 mL/min) *Enoxaparin/Lovenox 30 mg SQ daily (WT < 150 kg, CrCl > 10-29 mL/min) *Enoxaparin/Lovenox 30 mg SQ BID (WT < 150 kg, CrCl > 30 mL/min) AND/OR *Sequential Compression Device (SCD) 5 or more Highest Order ONE of the following medications: *Heparin 5000 units SQ TID (Preferred with Epidurals) *Enoxaparin/Lovenox 40 mg SQ daily (WT < 150 kg, CrCl > 30 mL/min) *Enoxaparin/Lovenox 30 mg SQ daily (WT < 150 kg, CrCl > 10-29 mL/min) *Enoxaparin/Lovenox 30 mg SQ BID (WT < 150 kg, CrCl > 30 mL/min) AND *Sequential Compression Device (SCD) Assessment and Plan - Plan A/P - PE started on Heparin drip- check venous doppler of the lower extremities. will keep on oxygen to keep O2 sat > 90%. -diabetes with reported hypoglycemia continue with accu-check monitroing. - dementia- will verify and resume the home meds. -bipolar disorder/ chronic back pain; will verify and resume the home meds. -consult palliative care. Code Status: full code for now; the daughter would like to talk to palliative care regarding the code status and extent of care. Discussed Condition With: the patient and her daughter. Discharge Planning: awaiting palliative care evaluation.
[2018-03-25 08:40] LABS: ABG Base Excess -1.9 mmol/L (-2-2); ABG PCO2 30 mmHg (38-42); ABG PO2 79 mmHg (61-120)
--- NOTE | 2018-03-25 10:03 | US ---
EXAM DATE: 03/25/2018 9:56 AM EST AGE/SEX: 83 years / Female INDICATIONS: Pulmonary embolism. Evaluate for DVT of the lower extremities. CLINICAL DATA: This is the patient's initial encounter. Patient reports that signs and symptoms have been present for 1 day and indicates a pain score of 0/10. MEDICAL/SURGICAL HISTORY: Dementia. Chronic obstructive pulmonary disease. Diabetes. GERD. Hyperlipidemia. Hypertension. Hypoxemia. Acute kidney injury. Restless leg syndrome. . Back ace rgery. COMPARISON: No prior exams available for comparison. TECHNIQUE: Venous ultrasound of both lower extremities was performed from the inguinal ligament to t he proximal calf. Real-time, color Doppler and spectral tracing, compression and augmentation techni ques were used. FINDINGS: Right Leg: Normal compression of the deep venous system from the inguinal region to the proximal mirna f. No echogenic clot is seen. Normal response of the venous system to augmentation and respiration. Left Leg: Normal compression of the deep venous system from the inguinal region to the proximal calf . No echogenic clot is seen. Normal response of the venous system to augmentation and respiration. Other: None. CONCLUSION: The study is negative for bilateral lower extremity deep venous thrombosis. Electronically signed by: Valeriy Hanson MD 03/25/2018 10:01 AM EST
--- NOTE | 2018-03-25 10:43 | P.CONPAL ---
Consult Service: Palliative Care Requesting Physician: Hao Castellanos Reason for Consult: a. To assist with evaluation and management of symptoms including: Dyspnea, confusion, pain b. To assist medical decision maker(s) with: better understanding of current medical conditions; weighing benefits/burdens of medical treatment options; making medical treatment decisions. Primary Care Provider: UNKNOWN History of Present Illness History of Present Illness: This is an 83-year-old female who was brought to the ED via EMS today for worsening confusion and hypoglycemia at the long-term care facility where she resides. Per emergency room notes, patient been having some difficulty swallowing was possibly aspirating. She was apparently given insulin and subsequently found with hypoglycemia, blood sugar was 40s at the facility which prompted them to call EMS. Upon arrival of EMS she was given D10 blood sugar increased to 150. She was also found to be disoriented having some respiratory distress. She was given duo nebs and placed on BiPAP, has remained somewhat distressed. Patient is a FULL CODE. Current ED course: * VQ scan: Abnormal pulmonary perfusion, especially the left lung and high probability for pulmonary embolus. * CXR: Probable interim but nonacute left hemithorax trauma with healing rib fractures and some associated pleural thickening. Otherwise negative and not significantly changed * Venous Doppler study: Negative for DVT * Labs: WBC 17.6, hemoglobin 14.2, hematocrit 41.6, platelet 270, PT/INR 10.5/1 , APTT 32, sodium 137, potassium 3.4, chloride 105, carbon dioxide 21.5, BUN 13 , creatinine 0.9, GFR 60, bilirubin 0.5, calcium 9.2, troponin less than 0.02, BNP 19, protein 8, albumin 3.8 * ABG: PH 7.47, CO2 30, bicarb 21, base excess -1.9 (improvement from previous - 3.5) Patient seen and evaluated with the daughter at bedside. Met with daughter separately outside the room. Patient is awake and alert pleasantly confused. Answer some questions appropriately. Is able to follow some simple commands. Found with nasal cannula resting on her chin. Has some complaints of abdominal tenderness to light palpation otherwise no complaints at this time. Function/Cognitive Trajectory: . Patient has long history of dementia with steep decline over the past 8 months. She is reportedly suffered loss of multiple family members which has likely accelerated some of her dementia progression. She also has some underlying psychiatric issues. Daughter reports about a year ago patient lost her son who she was extremely close to, shortly after patient's mental status declined rapidly. Shortly after she required transfer to a long-term care facility due to increasing care needs. Patient was somewhat ambulatory though suffering frequent falls with injuries. Prior to this hospitalization she had been essentially bedbound. She has had ongoing and worsening confusion. Review of Systems Constitutional: Reports lack of energy Eyes: Reports change in vision Ears, Nose, Mouth, and Throat: Reports difficulty swallowing Cardiovascular: Reports fast heart rate, Reports shortness of breath Respiratory: Reports chest congestion, Reports cough, Reports shortness of breath (oxygen dependent) Gastrointestinal: Reports abdominal pain Genitourinary: Denies blood in urine Musculoskeletal: Reports back pain, Reports decreased muscle mass, Reports joint pain, Reports limited joint movement (LUE), Reports numbness Skin/Breast: Denies change in skin color Neurologic: Reports confusion, Reports dizziness, Reports frequent falls, Reports lack of coordination, Reports restless legs, Reports weakness Psychiatric: Reports anxiety, Reports change in appetite, Reports confusion, Reports depression, Reports irritability, Reports memory loss (depression secondary to loss of multiple family members), Reports mood swings PMFSH - History History Provided By: Medical Record - Medical History Medical History: Medical History (Last Updated 03/25/18 @ 11:01 by PRETTY Alvarez) Acidosis Acute kidney failure Altered mental status Anxiety COPD (chronic obstructive pulmonary disease) Cataract GERD (gastroesophageal reflux disease) H/O: hysterectomy HTN (hypertension) Hyperkalemia Hyperlipidemia Hypoxemia Low back pain Multiple falls Restless leg syndrome Dementia Diabetes - Surgical History Surgical History: Surgical History (Last Updated 03/25/18 @ 10:56 by PRETTY Alvarez) History of bowel resection History of colostomy History of colostomy reversal History of tonsillectomy Previous back surgery - Family History Family History: Family History (Last Updated 03/25/18 @ 16:20 by PRETTY Alvarez) Daughter Bipolar disorder Son Bipolar disorder Other Alcohol abuse Family history of acute myocardial infarction No pertinent family history - Social History I have reviewed the patient's Social History: Yes - Tobacco History Second Hand Smoke Exposure: No Tobacco Use In Past 30 Days: Yes Smoking Status: Current every day smoker Tobacco Type: Cigarettes Years Smoked: 60 - Alcohol History How Often Do You Have a Drink Containing Alcohol: Never - Substance Use History Substance History: No History of Abuse - Travel History Recent Travel in the [place] Within the Last 8 Weeks: No Recent Travel Out of the Country Within the Last 8 Weeks: No - Immunization History Tetanus Immunization: Unsure Medications and Allergies Active Medications: Active Medications Acetaminophen (Tylenol) 650 mg PO Q4H PRN PRN Reason: Temp > 100.4 Bisacodyl (Dulcolax Supp) 10 mg RECTAL DAILY PRN PRN Reason: SEVERE CONSITIPATION Dextrose (D50w Vial) 50 ml IV.PUSH UNSCH PRN PRN Reason: PER HYPOGLYCEMIA PROTOCOL Glucagon (Glucagon Inj) 1 mg OTHER UNSCH PRN PRN Reason: PER HYPOGLYCEMIA PROTOCOL Heparin Sodium/Dextrose (Heparin/D5w 25,000 U/250 Ml) 25,000 unit in 250 mls @ 0 mls/hr IV.CONT TITRATE PRN; Protocol PRN Reason: Per Protocol Last Admin: 03/25/18 07:35 Dose: 1,300 units/hr, 13 mls/hr Ondansetron HCl (Zofran Inj) 4 mg IV.PUSH Q6H PRN PRN Reason: NAUSEA OR VOMITING Sennosides (Senokot) 17.2 mg PO Q12H PRN PRN Reason: Moderate Constipation Sodium Chloride (Ns Flush) 2 ml IV.FLUSH BID CARLYLE Sodium Chloride (Ns Flush) 2 ml IV.FLUSH PRN PRN PRN Reason: FLUSH AFTER USING IV ACCESS Allergies Allergy/AdvReac Type Severity Reaction Status Date / Time morphine Allergy Severe Swelling Verified 02/25/17 23:27 Home Medications Medication Instructions Recorded Confirmed Type amitriptyline 10 mg PO HS 03/25/18 03/25/18 History ascorbic acid (vitamin C) 500 mg PO DAILY 03/25/18 03/25/18 History fluticasone-vilanterol [Breo 1 inh INHALATION DAILY 03/25/18 03/25/18 History Ellipta] gabapentin 200 mg PO TID 03/25/18 03/25/18 History hydromorphone 12 mg PO Q24H 03/25/18 03/25/18 History insulin glargine [Lantus U-100 20 unit SUBCUT HS 03/25/18 03/25/18 History Insulin] insulin regular human [Humulin R 1 sliding scale dose SUBCUT UD 03/25/18 History Regular U-100 Insuln] megestrol 20 mg PO DAILY 03/25/18 03/25/18 History mirtazapine [Remeron SolTab] 15 mg PO HS 03/25/18 03/25/18 History olopatadine 2 drp EACH EYE BID 03/25/18 03/25/18 History pantoprazole 40 mg PO DAILY 03/25/18 03/25/18 History simvastatin 80 mg PO QPM 03/25/18 03/25/18 History tiotropium bromide [Spiriva with 1 cap INHALATION DAILY 03/25/18 03/25/18 History HandiHaler] Advance Directives Power of Tip Stitcher: Yes (Not For Health Care) Power of Tip Stitcher Name: Loretta Ethical and Legal Issues: Patient is not capacitated to make her own decisions at this time, likely will not regain capacity. Daughter has power of senior trial attorney paperwork however healthcare power of senior trial attorney section is not signed. Patient had 4 children, only 2 are living. Call placed to second daughter, Aiyana who is in agreement with her sister Loretta making healthcare decisions for the patient. Physical Exam Vital Signs: Vital Signs - 24 hr 03/24/18 23:55 03/25/18 00:03 03/25/18 01:15 Pulse Rate 122 H Respiratory Rate 32 H Blood Pressure 153/72 H Pulse Oximetry 97 100 100 03/25/18 01:20 03/25/18 02:04 03/25/18 02:30 Pulse Rate 115 H 100 H 122 H Respiratory Rate 30 H 30 H Blood Pressure 138/82 140/84 Pulse Oximetry 100 100 03/25/18 02:40 03/25/18 02:55 03/25/18 03:36 Pulse Rate 110 H 117 H 120 H Respiratory Rate 28 H 29 H 28 H Blood Pressure 149/84 H Pulse Oximetry 03/25/18 04:17 03/25/18 06:00 Pulse Rate 122 H 118 H Respiratory Rate 24 25 H Blood Pressure 139/63 Pulse Oximetry 100 98 I&O: Intake & Output 03/23/18 03/24/18 03/25/18 03/26/18 06:59 06:59 06:59 06:59 Intake Total 100 / 100 250 / 250 Output Total 950 / 950 Balance 100 / 100 -700 / -700 Weight 72.575 kg Physical Exam: CONSTITUTIONAL/GENERAL: This is an adequately nourished patient, in no apparent distress. TUBES/LINES/DRAINS: Peripheral IV left hand. SKIN: No jaundice, rashes, or lesions. Ecchymoses on upper extremities. No wounds seen anteriorly. Skin temperature appropriate. Not diaphoretic. HEAD: Atraumatic. Normocephalic. EYES: Pupils equal and round and reactive. Extraocular motions intact. No scleral icterus. No injection or drainage. Fundi not examined. ENT: Hearing grossly normal. Nose without bleeding or purulent drainage. Throat without visible erythema, exudates, masses, or lesions. NECK: Trachea midline. Supple, nontender. No palpable thyroid enlargement or nodularity. CARDIOVASCULAR: Tachycardic. No JVD. Peripheral pulses symmetric. RESPIRATORY/CHEST: Symmetric, unlabored respirations. Clear to auscultation. Breath sounds equal bilaterally. No wheezes, rales, or rhonchi. GASTROINTESTINAL: Abdomen tender to light palpation, + guarding. No palpable masses. No guarding. Bowel sounds present. GENITOURINARY: Without palpable bladder distension. Delgado catheter in place. MUSCULOSKELETAL: Tenderness in left upper extremity. Limited joint movement. LYMPHATICS: No palpable cervical or supraclavicular adenopathy. NEUROLOGICAL: Awake and alert. Motor and sensory grossly within normal limits. Follows commands. Moves all extremities. PSYCHIATRIC: No obvious anxiety/depression. no apparent hallucinations or other psychotic thought process. Diagnostic Tests Laboratory: Laboratory Results - last 72 hr 03/25/18 03/25/18 03/25/18 00:08 00:08 00:08 WBC 17.6 H RBC 4.59 Hgb 14.2 Hct 41.6 MCV 90.7 MCH 31.0 MCHC 34.2 RDW 14.9 Plt Count 270 MPV 9.0 Neut % (Auto) 79.0 H Lymph % (Auto) 10.8 Stanly % (Auto) 8.6 H Eos % (Auto) 1.2 Baso % (Auto) 0.4 Neut # (Auto) 13.9 H Lymph # (Auto) 1.9 Stanly # (Auto) 1.5 H Eos # (Auto) 0.2 Baso # (Auto) 0.1 WBC Differential . Differential Comment Auto diff final PT INR APTT Puncture Site Patient Temperature O2 Saturation ABG pH ABG pCO2 ABG pO2 ABG HCO3 ABG O2 Content ABG Base Excess ABG Methemoglobin Maksim Test Hemoglobin Carboxyhemoglobin O2 Delivery Device Liter Flow Vent Setting Inspired O2 Critical Value Sodium 137 Potassium 3.4 L Chloride 105 Carbon Dioxide 21.5 Anion Gap 11 BUN 13 Creatinine 0.90 Estimated GFR 60 L Random Glucose 88 Calcium 9.2 Total Bilirubin 0.5 AST 20 ALT 16 Alkaline Phosphatase 112 Troponin I Less than 0.02 L B-Natriuretic Peptide 19 Total Protein 8.0 Albumin 3.8 Urine Color Urine Clarity Urine pH Ur Specific Franklin Urine Protein Urine Glucose (UA) Urine Ketones Urine Occult Blood Urine Nitrate Urine Bilirubin Urine Urobilinogen Ur Leukocyte Esterase Urine RBC Urine WBC Ur Squamous Epith Cells Urine Bacteria Hyaline Casts Urine Mucus Micro UA Comment Ur Microscopic Review Urine Culture Comments 03/25/18 03/25/18 03/25/18 00:15 01:20 07:20 WBC RBC Hgb Hct MCV MCH MCHC RDW Plt Count MPV Neut % (Auto) Lymph % (Auto) Stanly % (Auto) Eos % (Auto) Baso % (Auto) Neut # (Auto) Lymph # (Auto) Stanly # (Auto) Eos # (Auto) Baso # (Auto) WBC Differential Differential Comment PT 10.5 INR 1.0 APTT 32.0 H Puncture Site Right radial Patient Temperature 98.6 O2 Saturation 94 ABG pH 7.28 L* ABG pCO2 49 H ABG pO2 76 ABG HCO3 22 ABG O2 Content 16.6 ABG Base Excess -3.5 L ABG Methemoglobin 0.6 Maksim Test Present Hemoglobin 12.5 Carboxyhemoglobin 1.0 O2 Delivery Device Bipap Liter Flow Vent Setting Ipap=15 epap=5 Inspired O2 80 Critical Value Yes Sodium Potassium Chloride Carbon Dioxide Anion Gap BUN Creatinine Estimated GFR Random Glucose Calcium Total Bilirubin AST ALT Alkaline Phosphatase Troponin I B-Natriuretic Peptide Total Protein Albumin Urine Color Yellow Urine Clarity Clear Urine pH 5.0 Ur Specific Franklin 1.009 Urine Protein Negative Urine Glucose (UA) 50 Urine Ketones Negative Urine Occult Blood Negative Urine Nitrate Negative Urine Bilirubin Negative Urine Urobilinogen Less than 2 Ur Leukocyte Esterase Small H Urine RBC 5 H Urine WBC 16 H Ur Squamous Epith Cells <1 Urine Bacteria Rare H Hyaline Casts 3 Urine Mucus Few H Micro UA Comment Cath-culture ind Ur Microscopic Review Not Reportable Urine Culture Comments Cath-cult indicated 03/25/18 08:31 WBC RBC Hgb Hct MCV MCH MCHC RDW Plt Count MPV Neut % (Auto) Lymph % (Auto) Stanly % (Auto) Eos % (Auto) Baso % (Auto) Neut # (Auto) Lymph # (Auto) Stanly # (Auto) Eos # (Auto) Baso # (Auto) WBC Differential Differential Comment PT INR APTT Puncture Site Left radial Patient Temperature 98.6 O2 Saturation 95 ABG pH 7.47 H ABG pCO2 30 L ABG pO2 79 ABG HCO3 21 L ABG O2 Content 14.1 ABG Base Excess -1.9 ABG Methemoglobin 0.8 Maksim Test Present Hemoglobin 10.5 L Carboxyhemoglobin 1.4 O2 Delivery Device Nasal cannula Liter Flow 3.00 Vent Setting Inspired O2 Critical Value No Sodium Potassium Chloride Carbon Dioxide Anion Gap BUN Creatinine Estimated GFR Random Glucose Calcium Total Bilirubin AST ALT Alkaline Phosphatase Troponin I B-Natriuretic Peptide Total Protein Albumin Urine Color Urine Clarity Urine pH Ur Specific Franklin Urine Protein Urine Glucose (UA) Urine Ketones Urine Occult Blood Urine Nitrate Urine Bilirubin Urine Urobilinogen Ur Leukocyte Esterase Urine RBC Urine WBC Ur Squamous Epith Cells Urine Bacteria Hyaline Casts Urine Mucus Micro UA Comment Ur Microscopic Review Urine Culture Comments Result Diagrams: 03/25/18 00:08 03/25/18 00:08 Imaging: Impressions Venous Doppler Study 03/25/18 00:00 CONCLUSION: The study is negative for bilateral lower extremity deep venous thrombosis. Chest X-Ray 03/25/18 00:01 CONCLUSION: Probable interim but nonacute left hemithorax trauma with healing rib fractures and some associated pleural thickening. Otherwise negative and not significantly changed. Pulmonary Perfusion Imaging 03/25/18 02:20 CONCLUSION: Abnormal pulmonary perfusion, especially the left lung and high probability for pulmonary embolus. Patient/Family Conference Present at Family Conference: Daughter Loretta Spoke with ryan Bronson via phone in [place]. Issues Discussed: * Palliative care role, purpose, approach * Additional medical, psychosocial, and spiritual history * Patients general health, functional status, and cognitive changes in the months leading up to the current hospitalization * Patient/family understanding of the current medical problems * Patient/family understanding of prognosis * Patients goals of care as best understood from advance directives and/or conversations and/or values * Current medical treatment options and benefits/burdens of those options * Likely scenarios comparing ongoing aggressive care with a transition to comfort measures only * Questions answered to the best of my ability * Palliative care contact information provided Assessment and Plan Pertinent Non-Medical Issues: Psychosocial: Patient is originally from [facility]. 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 She is , she had 4 children , only 2 are living now. She suffered the of her son and daughter within a month's time of each other. She had been living with her daughter until about a year ago when she was transition to long-term care facility due to progression of her dementia and increasing care demands. Spiritual: Daughter reports face was important in the patient's life at one point. She had not been very spiritual in the recent past, Is receptive to level vial curvature gauger visit. Legal: Patient is not capacitated to make her own decisions at this time, likely will not regain capacity. Daughter has power of senior trial attorney paperwork however healthcare power of senior trial attorney section is not signed. Patient had 4 children, only 2 are living. Call placed to second daughterAiyana who is in agreement with her sister Loretta making healthcare decisions for the patient Ethical issues impacting care: None Important Contacts: Daughter Loretta Lopez: [phone] Grandchild Teja Casanova: [phone] Prognosis: Patient has a long history of dementia which has been exacerbated by multiple infections, hospitalizations, and loss of multiple family members over the past year, as well as underlying psych issues. Daughter recently had to transition her to long-term care due to increasing in care needs. She was somewhat ambulatory started having frequent falls with fractures and other injuries, is now essentially bedbound. Patient also has bipolar disorder which may likely compounded confusion. Given her underlying COPD, and newly found pulmonary embolism, life expectancy is limited if not treated. Patient would be appropriate for hospice services if family's goals are appropriate. Code Status: No Code DNR Plan: Legal decision maker: Patient is not capacitated to make her own decisions at this time, likely will not regain capacity. Daughter has power of senior trial attorney paperwork however healthcare power of senior trial attorney section is not signed. Patient had 4 children, only 2 are living. Call placed to second daughterAiyana who is in agreement with her sister Loretta making healthcare decisions for the patient Goals: At this time, daughter would like to maximize current treatments short of resuscitation. She has elected DNR status. She would like to meet with the hospice sales representative business courses this weekend, and may likely return to long-term care facility with hospice services. CODE STATUS: DNR SYMPTOMS: --Pain: Patient has a history of chronic pain secondary to multiple falls with fractures. Appears comfortable at this time however complains of abdominal tenderness to light palpation. We will continue to assess. --Dyspnea: Patient has a history of COPD and now has pulmonary embolism. She has chronically been on oxygen prior to this hospitalization. She appears comfortable, no dyspnea, will continue to assess. Had been requiring BiPAP in the emergency room but has been weaned back to nasal cannula. High risk for further setbacks secondary to PE and history of COPD. --Confusion: Patient has a history of dementia and bipolar. She was also found hypoglycemic with a blood sugar in the 30s. At this time she is confused but can answer some questions appropriately. At this time she is not restless or agitated. She appears comfortable. Palliative care will continue to follow during hospital course as condition evolves, to assist patient/decision-maker with understanding of medical conditions, weighing benefits/burdens of treatment options, for clarification of goals of treatment. Additionally will assist with any symptoms of palliative concern Appreciation Thank you for the opportunity to participate in the care of Jeanne Merlos. Attestation Attestation: To help prompt me to consider important information that might be impacting today's encounter and assessment, information from prior notes written by myself or my colleagues may have been "brought forward" into today's note. My signature on this note, however, is an attestation that I personally performed the exam, history, and/or decision-making noted today, and, unless otherwise indicated, the interactions with patient, family, and staff as well as the review of records all occurred today. I also attest that the listed assessment and stated plan reflect my best clinical judgment today based on the combination of historical information, prior notes, and today's exam/ interactions. When time spent is documented, it refers only to time spent today by the signer, or if indicated, combined time spent today by collaborating physician/nurse practitioner.
[2018-03-25] MEDS: Sodium Chloride 0.9% 2 ML Flush BID IV.FLUSH SCH ×2 (10:51→20:41)
--- NOTE | 2018-03-25 12:48 | ECHRPT ---
Indication: Shortness of Breath CONCLUSIONS Normal left ventricular size. Wall thickness is normal. The left ventricular systolic function is normal with an estimated ejection fraction in the range of 55-60%. There is mild tricuspid valve regurgitation. The estimated pulmonary arterial pressure is 46 mmHg. The pulmonary valve is not well visualized. BP: / HR: Rhythm: MEASUREMENTS (Male / Female) Normal Values Technical Quality:Technically difficult study 2D ECHO LV Diastolic Diameter PLAX 3.8 cm 4.2 - 5.9 / 3.9 - 5.3 cm LV Systolic Diameter PLAX 2.1 cm IVS Diastolic Thickness 1.0 cm 0.6 - 1.0 / 0.6 - 0.9 cm LVPW Diastolic Thickness 0.9 cm 0.6 - 1.0 / 0.6 - 0.9 cm LV Relative Wall Thickness 0.5 RV Internal Dim ED PLAX 2.7 cm LVOT Diameter 1.8 cm Aortic Root Diameter 2.8 cm LA Systolic Diameter LX 2.7 cm 3.0 - 4.0 / 2.7 - 3.8 cm M-MODE AV Cusp Separation MM 1.8 cm DOPPLER AV Peak Velocity 136.0 cm/s AV Peak Gradient 7.4 mmHg LVOT Peak Velocity 93.2 cm/s LVOT Peak Gradient 3.5 mmHg AV Area Cont Eq pk 1.7 cm Mitral E Point Velocity 123.0 cm/s Mitral A Point Velocity 152.0 cm/s Mitral E to A Ratio 0.8 LV E' Lateral Velocity 10.9 cm/s Mitral E to LV E' Lateral Ratio 11.3 LV E' Septal Velocity 10.3 cm/s Mitral E to LV E' Septal Ratio 11.9 TR Peak Velocity 301.0 cm/s TR Peak Gradient 36.2 mmHg Right Atrial Pressure 10.0 mmHg Pulmonary Artery Systolic Pressu 46.2 mmHg Right Ventricular Systolic Press 46.2 mmHg PV Peak Velocity 88.2 cm/s PV Peak Gradient 3.1 mmHg FINDINGS LEFT VENTRICLE Normal left ventricular size. Wall thickness is normal. The left ventricular systolic function is normal with an estimated ejection fraction in the range of 55-60%. RIGHT VENTRICLE Normal right ventricular size and systolic function. LEFT ATRIUM The left atrial size is normal. RIGHT ATRIUM The right atrial size is normal. ATRIAL SEPTUM Normal atrial septal thickness without atrial level shunting by limited color doppler interrogation. AORTA The aortic root and proximal ascending aorta are normal in size on limited imaging. MITRAL VALVE Structurally normal mitral valve. No mitral valve stenosis or regurgitation. AORTIC VALVE Trileaflet aortic valve. No aortic valve stenosis or regurgitation. TRICUSPID VALVE There is mild tricuspid valve regurgitation. The estimated pulmonary arterial pressure is 46 mmHg. PULMONARY VALVE The pulmonary valve is not well visualized. VESSELS The inferior vena cava is normal in size. PERICARDIUM No pericardial effusion. Dequan Chavis MD, FACC (Electronically Signed) Final Date:25 March 2018 12:47
[2018-03-25] MEDS: Gabapentin 100 MG Capsule PO SCH ×2 (13:25→17:36)
--- NOTE | 2018-03-25 15:34 | ECG ---
Date Performed: 03/25/2018 Time Performed: 00:13:42 PTAGE: 83 years EKG: SINUS TACHYCARDIA MARKED LEFT AXIS DEVIATION Right Atrial Enlargement with Possible Right a tial strain With this EKG pattern, Causes of Atrial Strain icluding pulmonary embolus should be exclu ded clincally ABNORMAL ECG PREVIOUS TRACING : 07/22/2016 22.59 Compared to previous tracing, the atrial enlargement and th e sinus tachycardia are new. Clinical correlation is recommended DOCTOR: Sugey Bourgeois Interpretating Date/Time 03/25/2018 15:32:53
[2018-03-25] MEDS: Olopatadine 0.1% Opth Drops 5 ML Bottle EACH EYE SCH (20:41)
[2018-03-25] MEDS: Acetaminophen 325 MG Tablet PO PRN (20:41)
[2018-03-25] MEDS: Amitriptyline 10 MG Tablet PO SCH (20:41)
[2018-03-26] MEDS: Heparin Drip 25,000 UNIT/250 ML BAG IV.CONT PRN (01:30)
[2018-03-26] MEDS: Acetaminophen 325 MG Tablet PO PRN (04:05)
[2018-03-26 08:07] LABS: Baso # (Auto) 0.1 th/mm3 (0.0-0.2); Baso % (Auto) 0.9 % (0.0-2.0); Eos # (Auto) 0.2 th/mm3 (0.0-0.4); Eos % (Auto) 1.5 % (0.0-4.0); Hematocrit 36.5 % (35.0-46.0); Hemoglobin 12.1 gm/dL (11.6-15.3); Lymph # (Auto) 1.3 th/mm3 (1.0-4.8); Lymph % (Auto) 9.9 % (9.0-44.0); Mean Corpuscular HGB Conc 33.2 % (32.0-36.0); Mean Corpuscular Hemoglobin 30.6 pg (27.0-34.0); Mean Corpuscular Volume 92.1 fL (80.0-100.0); Mean Platelet Volume 10.1 fL (7.0-11.0); Mono # (Auto) 0.7 th/mm3 (0.0-0.9); Mono % (Auto) 5.2 % (0.0-8.0); Neut # (Auto) 11.1 th/mm3 (1.8-7.7); Neut % (Auto) 82.5 % (16.0-70.0); Platelet Count 295 th/mm3 (150-450); Red Blood Count 3.96 mil/mm3 (4.00-5.30); Red Cell Distribution Width 15.3 % (11.6-17.2); White Blood Count 13.4 th/mm3 (4.0-11.0)
[2018-03-26] MEDS: Gabapentin 100 MG Capsule PO SCH ×3 (08:37→18:12)
[2018-03-26] MEDS: Sodium Chloride 0.9% 2 ML Flush BID IV.FLUSH SCH ×2 (08:38→22:10)
[2018-03-26] MEDS: Tiotropium Bromide 18 MCG/ACT Inhaler INH SCH (08:38)
[2018-03-26] MEDS: Olopatadine 0.1% Opth Drops 5 ML Bottle EACH EYE SCH ×2 (08:38→22:10)
[2018-03-26 08:54] LABS: Calcium 8.1 mg/dL (8.5-10.1); Carbon Dioxide 21.3 meq/L (21.0-32.0); Potassium 3.7 meq/L (3.5-5.1)
[2018-03-26 09:13] LABS: Lymphocytes 10 % (9-44); Monocytes 7 % (0-8); Platelet Estimate Normal (Normal); Platelet Morphology Normal (Normal)
[2018-03-26 09:16] LABS: RBC Morphology Normal (Normal)
--- NOTE | 2018-03-26 10:48 | P.PN ---
Subjective Interval history: Follow up for PE, AMS, hypoglycemia, dementia. The patient reports some mild shortness of breath, denies any chest pain. She is oriented to self and hospital , but states the date is April, unknown year, and president Jorge. She states she is not very hungry this morning but does want her milk. Denies any other medical complaints at this time. Physical Exam Vital signs: Vital Signs 03/25/18 10:48 03/25/18 12:55 03/25/18 20:10 Temperature 98.4 F 100.7 F H Pulse Rate 111 H 115 H 122 H Respiratory Rate 22 18 21 Blood Pressure 141/60 H 144/67 H 136/60 Pulse Oximetry 98 100 95 03/25/18 20:15 03/25/18 22:34 03/25/18 23:25 Temperature 98.9 F 98.8 F Pulse Rate 125 H 122 H 120 H Respiratory Rate 20 Blood Pressure 104/55 L Pulse Oximetry 93 L 96 03/26/18 00:04 03/26/18 03:40 03/26/18 08:00 Temperature 100.3 F H 98.9 F Pulse Rate 120 H 118 H 125 H Respiratory Rate 20 20 Blood Pressure 136/70 Pulse Oximetry 97 96 03/26/18 09:52 03/26/18 09:54 Temperature Pulse Rate Respiratory Rate Blood Pressure Pulse Oximetry 93 L 94 L Intake & Output 03/25/18 03/26/18 03/26/18 18:59 06:59 18:59 Intake Total 250 / 250 730 / 730 Output Total 950 / 950 650 / 650 Balance -700 / -700 80 / 80 Weight 63.7 kg 63.7 kg Intake: IV 250 / 250 250 / 250 Heparin/D5W 25,000 U/250 mL 25, 250 / 250 000 unit In 250 ml @ Per Protocol IV.CONT TITRATE PRN Rx #:[id number] Azithromycin Inj 500 MG In NS 250 / 250 Inj 250 ML @ 250 mls/hr IV.SIG ONCE ONE Rx#:[id number] Oral 480 / 480 Output: Urine 400 / 400 Urine Amount (Catheter) 950 / 950 250 / 250 Indwelling Urethral Catheter 950 / 950 250 / 250 Other: Date of Last Bowel Movement 03/26/18 # Bowel Movements 1 # Incontinent Bowel Movements 2 Weight On Admission 63.7 kg Narrative: GENERAL: Well-nourished, well-developed pleasantly confused elderly female patient in NAD. SKIN: Warm and dry. No rash. HEENT: Normocephalic. Atraumatic. Pupils equal and round. Mucous membranes pink and moist. CARDIOVASCULAR: Regular rate and rhythm. No murmur appreciated. RESPIRATORY: No accessory muscle use. Clear to auscultation. Breath sounds equal bilaterally. GASTROINTESTINAL: Abdomen soft, nondistended, mild diffuse upper abdominal tenderness. Normoactive bowel sounds x4. MUSCULOSKELETAL: Extremities without clubbing, cyanosis, or edema. Bilateral calves nontender. NEUROLOGICAL: Awake and alert, oriented x2. No obvious cranial nerve deficits. Moving all extremities spontaneously. Normal speech. PSYCHIATRIC: Appropriate mood and affect; insight and judgment limited. - Urinary Catheter Management Indwelling Urethral Catheter Cath placed during this visit: yes Reason for continuing: Chronic Urinary Retention Insertion date: 03/25/18 Insertion time: 01:15 Results - Labs CBC & Chem 7: 03/26/18 06:29 03/26/18 06:29 Laboratory Results - last 24 hr 03/25/18 03/25/18 03/25/18 15:18 17:00 18:45 WBC RBC Hgb Hct MCV MCH MCHC RDW Plt Count MPV Prelim Diff (Auto) Neut % (Auto) Lymph % (Auto) [place] % (Auto) Eos % (Auto) Baso % (Auto) Neut # (Auto) Lymph # (Auto) [place] # (Auto) Eos # (Auto) Baso # (Auto) WBC Differential Seg Neuts % (Manual) Band Neuts % (Manual) Lymphocytes % (Manual) Monocytes % (Manual) Basophils % (Manual) Abs Neuts (Manual) Differential Comment Platelet Estimate Platelet Morphology RBC Morphology APTT 92.0 H* D 68.5 H D Sodium Potassium Chloride Carbon Dioxide Anion Gap BUN Creatinine Estimated GFR POC Glucose 219 H Random Glucose Calcium 03/25/18 03/26/18 03/26/18 22:21 00:22 06:29 WBC 13.4 H RBC 3.96 L Hgb 12.1 D Hct 36.5 MCV 92.1 MCH 30.6 MCHC 33.2 RDW 15.3 Plt Count 295 MPV 10.1 Prelim Diff (Auto) Slide review pending Neut % (Auto) 82.5 H Lymph % (Auto) 9.9 [place] % (Auto) 5.2 Eos % (Auto) 1.5 Baso % (Auto) 0.9 Neut # (Auto) 11.1 H Lymph # (Auto) 1.3 [place] # (Auto) 0.7 Eos # (Auto) 0.2 Baso # (Auto) 0.1 WBC Differential Manual diff final Seg Neuts % (Manual) 32 Band Neuts % (Manual) 50 H Lymphocytes % (Manual) 10 Monocytes % (Manual) 7 Basophils % (Manual) 1 Abs Neuts (Manual) 11.0 H Differential Comment . Platelet Estimate Normal Platelet Morphology Normal RBC Morphology Normal APTT 64.1 H Sodium Potassium Chloride Carbon Dioxide Anion Gap BUN Creatinine Estimated GFR POC Glucose 249 H Random Glucose Calcium 03/26/18 03/26/18 06:29 08:43 WBC RBC Hgb Hct MCV MCH MCHC RDW Plt Count MPV Prelim Diff (Auto) Neut % (Auto) Lymph % (Auto) [place] % (Auto) Eos % (Auto) Baso % (Auto) Neut # (Auto) Lymph # (Auto) [place] # (Auto) Eos # (Auto) Baso # (Auto) WBC Differential Seg Neuts % (Manual) Band Neuts % (Manual) Lymphocytes % (Manual) Monocytes % (Manual) Basophils % (Manual) Abs Neuts (Manual) Differential Comment Platelet Estimate Platelet Morphology RBC Morphology APTT Sodium 136 Potassium 3.7 Chloride 101 Carbon Dioxide 21.3 Anion Gap 14 BUN 15 Creatinine 0.98 Estimated GFR 54 L POC Glucose 275 H Random Glucose 221 H D Calcium 8.1 L D - Imaging Venous Doppler Study 03/25/18 00:00 CONCLUSION: The study is negative for bilateral lower extremity deep venous thrombosis. Chest X-Ray 03/25/18 00:01 CONCLUSION: Probable interim but nonacute left hemithorax trauma with healing rib fractures and some associated pleural thickening. Otherwise negative and not significantly changed. Pulmonary Perfusion Imaging 03/25/18 02:20 CONCLUSION: Abnormal pulmonary perfusion, especially the left lung and high probability for pulmonary embolus. Assessment and Plan - Plan 83 y/o female with history of dementia, diabetes and chronic back pain was sent to ER because of altered mental status. History limited due to her dementia, poor historian. Per the ER note the patient was suspected to aspirate yesterday with some changes in her mental status. She was also found to have a low blood sugar for which she received a dose of Glucagon and D10. AMS: suspect multifactorial secondary to hypoglycemia, hypoxia with PE, and underlying dementia -continue neuro checks -monitor blood glucose -monitor on telemetry Pulmonary Embolism: acute -VQ scan with Abnormal pulmonary perfusion, especially the left lung and high probability for pulmonary embolus. -BLE Doppler U/S negative for DVT -continue on IV heparin drip Diabetes with Hypoglycemia: acute -hold patient's Lantus and regular insulin -continue patient's gabapentin for neuropathy -monitor accu-checks and cover with SSI Dementia, Inability to Care for Self: acute on chronic -consult palliative care, appreciate assistance Chronic Back Pain: chronic -continue patient's extended release dilaudid 12mg po daily (verified on [facility]) -Consult PT/OT UTI: UA positive for leuks and WBCs -follow urine culture -continue on ceftin 250mg po bid Poor Oral Intake: chronic, suspect secondary to dementia -continue patient's megace and remeron Hyperlipidemia: chronic -continue patient's statin DVT Prophylaxis: on heparin drip
[2018-03-26] MEDS: Insulin NovoLOG Aspart Correctional Sugar Inj SQ SCH ×3 (12:00→22:09)
[2018-03-26 12:49] LABS: Hemoglobin A1c 7.4 % (4.3-6.0)
[2018-03-26] MEDS: Amitriptyline 10 MG Tablet PO SCH (22:09)
[2018-03-27] MEDS: Heparin Drip 25,000 UNIT/250 ML BAG IV.CONT PRN (02:39)
[2018-03-27 07:55] LABS: Baso # (Auto) 0.1 th/mm3 (0.0-0.2); Baso % (Auto) 0.6 % (0.0-2.0); Eos # (Auto) 0.1 th/mm3 (0.0-0.4); Eos % (Auto) 0.3 % (0.0-4.0); Hematocrit 35.4 % (35.0-46.0); Hemoglobin 11.9 gm/dL (11.6-15.3); Lymph # (Auto) 1.5 th/mm3 (1.0-4.8); Lymph % (Auto) 8.3 % (9.0-44.0); Mean Corpuscular HGB Conc 33.7 % (32.0-36.0); Mean Corpuscular Hemoglobin 30.2 pg (27.0-34.0); Mean Corpuscular Volume 89.6 fL (80.0-100.0); Mean Platelet Volume 9.8 fL (7.0-11.0); Mono # (Auto) 2.1 th/mm3 (0.0-0.9); Mono % (Auto) 11.9 % (0.0-8.0); Neut # (Auto) 14.2 th/mm3 (1.8-7.7); Neut % (Auto) 78.9 % (16.0-70.0); Platelet Count 309 th/mm3 (150-450); Red Blood Count 3.95 mil/mm3 (4.00-5.30); Red Cell Distribution Width 15.1 % (11.6-17.2); White Blood Count 18.1 th/mm3 (4.0-11.0)
[2018-03-27 08:33] LABS: Calcium 8.1 mg/dL (8.5-10.1); Carbon Dioxide 22.3 meq/L (21.0-32.0); Magnesium 1.8 mg/dL (1.5-2.5); Potassium 3.6 meq/L (3.5-5.1)
[2018-03-27] MEDS: Gabapentin 100 MG Capsule PO SCH ×3 (08:49→17:14)
[2018-03-27] MEDS: Insulin NovoLOG Aspart Correctional Sugar Inj SQ SCH ×4 (08:51→22:02)
[2018-03-27] MEDS: Sodium Chloride 0.9% 2 ML Flush BID IV.FLUSH SCH ×2 (08:51→22:02)
[2018-03-27] MEDS: Olopatadine 0.1% Opth Drops 5 ML Bottle EACH EYE SCH ×2 (08:52→22:03)
[2018-03-27 09:03] LABS: Lymphocytes 7 % (9-44); Monocytes 10 % (0-8); Platelet Estimate Normal (Normal); Platelet Morphology Normal (Normal); Toxic Vacuolation Present
[2018-03-27 09:04] LABS: Dohle Bodies Present
--- NOTE | 2018-03-27 09:11 | P.PN ---
Subjective Interval history: Follow up for PE, AMS, hypoglycemia, dementia, sepsis with UTI. The patient is currently awake, alert, oriented to self and hospital. She denies any medical complaints including no chest pain, shortness of breath, abdominal or urinary complaints. Denies fevers/chills however with documented low grade fevers overnight. Remains tachycardic. Labs reviewed, worsening leukocytosis today. Physical Exam Vital signs: Vital Signs 03/26/18 09:52 03/26/18 09:54 03/26/18 12:00 Temperature 99.4 F Pulse Rate 120 H Respiratory Rate 20 Blood Pressure 152/65 H Pulse Oximetry 93 L 94 L 100 03/26/18 16:00 03/26/18 19:58 03/26/18 20:24 Temperature 100.2 F H 99.9 F H Pulse Rate 129 H 125 H 123 H Respiratory Rate 20 22 Blood Pressure 119/56 L 92/51 L Pulse Oximetry 96 97 03/26/18 22:00 03/26/18 23:57 03/27/18 00:00 Temperature 99.0 F Pulse Rate 124 H 126 H Respiratory Rate 21 Blood Pressure 95/52 L Pulse Oximetry 97 93 L 03/27/18 00:56 03/27/18 04:00 Temperature 100.0 F H Pulse Rate 127 H Respiratory Rate 20 Blood Pressure 117/59 L Pulse Oximetry 94 L 93 L Intake & Output 03/26/18 03/27/18 03/27/18 18:59 06:59 18:59 Intake Total 240 / 240 250 / 250 Balance 240 / 240 250 / 250 Weight 63.7 kg Intake: IV 250 / 250 Heparin/D5W 25,000 U/250 mL 25, 250 / 250 000 unit In 250 ml @ Per Protocol IV.CONT TITRATE PRN Rx #:[id number] Oral 240 / 240 Other: # Voids 3 # Incontinent Voids 2 Date of Last Bowel Movement 03/26/18 # Bowel Movements 1 # Incontinent Bowel Movements 1 Narrative: GENERAL: Well-nourished, well-developed pleasantly confused elderly female patient in [facility]. SKIN: Warm and dry. No rash. HEENT: Normocephalic. Atraumatic. Pupils equal and round. Mucous membranes pink and moist. CARDIOVASCULAR: Tachycardic, regular rhythm. No murmur appreciated. RESPIRATORY: No accessory muscle use. Clear to auscultation. Breath sounds equal bilaterally. GASTROINTESTINAL: Abdomen soft, nondistended, mild diffuse upper abdominal TTP. Normoactive bowel sounds x4. MUSCULOSKELETAL: Extremities without clubbing, cyanosis, or edema. Bilateral calves nontender. NEUROLOGICAL: Awake and alert, oriented x2. No obvious cranial nerve deficits. Moving all extremities spontaneously. Normal speech. PSYCHIATRIC: Appropriate mood and affect; insight and judgment limited. - Urinary Catheter Management Indwelling Urethral Catheter Cath placed during this visit: yes, but has since been removed by the nurse Reason for continuing: Not indwelling catheter Insertion date: 03/25/18 Insertion time: 01:15 Removal date: 03/26/18 Removal time: 13:08 Results - Labs CBC & Chem 7: 03/27/18 06:37 03/27/18 06:37 Laboratory Results - last 24 hr 03/26/18 03/26/18 03/26/18 06:29 06:29 11:27 WBC RBC Hgb Hct MCV MCH MCHC RDW Plt Count MPV Prelim Diff (Auto) Neut % (Auto) Lymph % (Auto) [place] % (Auto) Eos % (Auto) Baso % (Auto) Neut # (Auto) Lymph # (Auto) [place] # (Auto) Eos # (Auto) Baso # (Auto) WBC Differential Manual diff final Seg Neuts % (Manual) 32 Band Neuts % (Manual) 50 H Lymphocytes % (Manual) 10 Monocytes % (Manual) 7 Basophils % (Manual) 1 Abs Neuts (Manual) 11.0 H Differential Comment Toxic Vacuolation Dohle Bodies Platelet Estimate Normal Platelet Morphology Normal RBC Morphology Normal APTT 50.6 H D Sodium Potassium Chloride Carbon Dioxide Anion Gap BUN Creatinine Estimated GFR POC Glucose Random Glucose Hemoglobin A1c 7.4 H Calcium Magnesium 03/26/18 03/26/18 03/26/18 12:12 16:56 22:03 WBC RBC Hgb Hct MCV MCH MCHC RDW Plt Count MPV Prelim Diff (Auto) Neut % (Auto) Lymph % (Auto) [place] % (Auto) Eos % (Auto) Baso % (Auto) Neut # (Auto) Lymph # (Auto) [place] # (Auto) Eos # (Auto) Baso # (Auto) WBC Differential Seg Neuts % (Manual) Band Neuts % (Manual) Lymphocytes % (Manual) Monocytes % (Manual) Basophils % (Manual) Abs Neuts (Manual) Differential Comment Toxic Vacuolation Dohle Bodies Platelet Estimate Platelet Morphology RBC Morphology APTT Sodium Potassium Chloride Carbon Dioxide Anion Gap BUN Creatinine Estimated GFR POC Glucose 279 H 215 H 255 H Random Glucose Hemoglobin A1c Calcium Magnesium 03/27/18 03/27/18 03/27/18 06:37 06:37 06:37 WBC 18.1 H RBC 3.95 L Hgb 11.9 Hct 35.4 MCV 89.6 MCH 30.2 MCHC 33.7 RDW 15.1 Plt Count 309 MPV 9.8 Prelim Diff (Auto) Slide review pending Neut % (Auto) 78.9 H Lymph % (Auto) 8.3 L [place] % (Auto) 11.9 H Eos % (Auto) 0.3 Baso % (Auto) 0.6 Neut # (Auto) 14.2 H Lymph # (Auto) 1.5 [place] # (Auto) 2.1 H Eos # (Auto) 0.1 Baso # (Auto) 0.1 WBC Differential Manual diff final Seg Neuts % (Manual) 47 Band Neuts % (Manual) 36 H Lymphocytes % (Manual) 7 L Monocytes % (Manual) 10 H Basophils % (Manual) Abs Neuts (Manual) 15.0 H Differential Comment . Toxic Vacuolation Present H Dohle Bodies Present H Platelet Estimate Normal Platelet Morphology Normal RBC Morphology APTT 46.7 H Sodium 135 L Potassium 3.6 Chloride 101 Carbon Dioxide 22.3 Anion Gap 12 BUN 26 H Creatinine 1.04 H Estimated GFR 51 L POC Glucose Random Glucose 183 H Hemoglobin A1c Calcium 8.1 L Magnesium 1.8 03/27/18 07:39 WBC RBC Hgb Hct MCV MCH MCHC RDW Plt Count MPV Prelim Diff (Auto) Neut % (Auto) Lymph % (Auto) [place] % (Auto) Eos % (Auto) Baso % (Auto) Neut # (Auto) Lymph # (Auto) [place] # (Auto) Eos # (Auto) Baso # (Auto) WBC Differential Seg Neuts % (Manual) Band Neuts % (Manual) Lymphocytes % (Manual) Monocytes % (Manual) Basophils % (Manual) Abs Neuts (Manual) Differential Comment Toxic Vacuolation Dohle Bodies Platelet Estimate Platelet Morphology RBC Morphology APTT Sodium Potassium Chloride Carbon Dioxide Anion Gap BUN Creatinine Estimated GFR POC Glucose 205 H Random Glucose Hemoglobin A1c Calcium Magnesium Microbiology 03/25/18 01:20 Catheterized Urine Urine Culture - Preliminary Immature growth - reincubate 03/25/18 00:10 Blood - Peripheral Aerobic Blood Culture - Preliminary No growth in 1 day 03/25/18 00:10 Blood - Peripheral Anaerobic Blood Culture - Preliminary No growth in 1 day 03/25/18 00:15 Blood - Peripheral Aerobic Blood Culture - Preliminary No growth in 1 day 03/25/18 00:15 Blood - Peripheral Anaerobic Blood Culture - Preliminary No growth in 1 day - Imaging Venous Doppler Study 03/25/18 00:00 CONCLUSION: The study is negative for bilateral lower extremity deep venous thrombosis. Chest X-Ray 03/25/18 00:01 CONCLUSION: Probable interim but nonacute left hemithorax trauma with healing rib fractures and some associated pleural thickening. Otherwise negative and not significantly changed. Pulmonary Perfusion Imaging 03/25/18 02:20 CONCLUSION: Abnormal pulmonary perfusion, especially the left lung and high probability for pulmonary embolus. Assessment and Plan - Plan 83 y/o female with history of dementia, diabetes and chronic back pain was sent to ER because of altered mental status. History limited due to her dementia, poor historian. Per the ER note the patient was suspected to aspirate yesterday with some changes in her mental status. She was also found to have a low blood sugar for which she received a dose of Glucagon and D10. AMS: suspect multifactorial secondary to hypoglycemia, hypoxia with PE, and underlying dementia -continue neuro checks -monitor blood glucose -monitor on telemetry Pulmonary Embolism: acute -VQ scan with Abnormal pulmonary perfusion, especially the left lung and high probability for pulmonary embolus. -BLE Doppler U/S negative for DVT -continue on IV heparin drip Sepsis with UTI: meets sepsis criteria with WBC 18K, tachycardia HR 120s, Tmax 100.7, suspected source-UTI -UA positive for leuks and WBCs. -follow urine culture -worsening leukocytosis, changed antibiotics from ceftin to IV zosyn today -patient with occasional abdominal tenderness on exam, check abdominal CT to rule out other source of sepsis -repeat UA Diabetes with Hypoglycemia: acute -hold patient's Lantus and regular insulin -continue patient's gabapentin for neuropathy -monitor accu-checks and cover with SSI Dementia, Inability to Care for Self: acute on chronic -consult palliative care, appreciate assistance Chronic Back Pain: chronic -continue patient's extended release dilaudid 12mg po daily (verified on E- [facility]) -Consult PT/OT Sinus Tachycardia: possibly multifactorial with sepsis and PE -EKG with sinus tachycardia -treat infection as above Poor Oral Intake: chronic, suspect secondary to dementia -continue patient's megace and remeron Hyperlipidemia: chronic -continue patient's statin DVT Prophylaxis: on heparin drip
[2018-03-27] MEDS: Tiotropium Bromide 18 MCG/ACT Inhaler INH SCH (12:11)
[2018-03-27] MEDS: Piperacil/Tazo 3.375 GM Premix 50 ML IV.SIG SCH ×3 (12:53→22:02)
[2018-03-27 14:00] LABS: Bacteria,Urine Rare /hpf; Clarity,Urine Hazy (Clear); Color,Urine Amber (Yellw/Straw); Glucose,Urine (UA) Negative (Negative); Hyaline Casts,Urine 5 /lpf (0-3); Leukocyte Esterase,Urine Small (Negative); Mucus,Urine Few /lpf (Occasional); Nitrite,Urine Negative (Negative); Specific Gravity,Urine 1.024 (1.002-1.035); Squamous Epithelial Cell,Urine 1 /hpf (0-5); Urobilinogen,Urine 4 or Greater mg/dL (Less than 2)
[2018-03-27] MEDS ORDERED: Diatrizoate Meglum/Diatrizoate Sod Liq 9 ML UDC PO ONE (14:00)
[2018-03-27 14:04] LABS: Bilirubin,Urine Negative (Negative); Ictotest,Urine Negative (Negative)
--- NOTE | 2018-03-27 19:14 | CT ---
EXAM DATE: 03/27/2018 7:04 PM EST AGE/SEX: 83 years / Female INDICATIONS: Diffuse abdomen pain. CLINICAL DATA: This is the patient's initial encounter. Patient reports that signs and symptoms have been present for 1 day and indicates a pain score of Nonresponsive. MEDICAL/SURGICAL HISTORY: Diabetes. Chronic obstructive pulmonary disease. Hypertension. [place] n resection. Colostomy. Hysterectomy. ORAL CONTRAST: Prescribed oral contrast ingested. RADIATION DOSE: 12.02 CTDI (mGy) COMPARISON: No prior exams available for comparison. TECHNIQUE: Multiple contiguous axial images were obtained through the abdomen and pelvis following b olus infusion of 97 ml Omnipaque 350 (iohexol) nonionic water-soluble contrast as a single exam dos e. Prescribed oral contrast ingested. Using automated exposure control and adjustment of the mA and/ or kV according to patient size, radiation dose was kept as low as reasonably achievable to obtain op timal diagnostic quality images. DICOM format image data is available electronically for review and comparison. FINDINGS: Lower Lungs: Patchy areas of subsegmental consolidation in the right lower lobe. Liver: The liver has a homogeneous density without space-occupying lesion. There is no dilation of th e intrahepatic biliary tree. The gallbladder is distended and contains 2 calcified stones, the larger measuring 9 mm. The common bile duct is dilated measuring up to 9 mm and is dilated down to the ampu lla. No calcifications within the common bile duct. Spleen: Homogeneous density without enlargement. Pancreas: Unremarkable without mass or calcification. Kidneys: Normal in size and shape. No evidence of mass or hydronephrosis. Adrenal Glands: Unremarkable. Aorta: The aorta and proximal iliac vessels are grossly unremarkable without aneurysmal dilation. Bowel/Mesentery: No dilated loops of small bowel. The right and transverse colon has a normal appear ance. The left colon and sigmoid demonstrate diffuse thickening of the wall with the thickening most prominent about the rectus and anus. Wall thickening measures up to 2.5 cm. There is anastomosis sutu re in the mid sigmoid colon. There is induration of the fat about the rectum and possible free fluid. . Abdominal Wall: Intact. Retroperitoneum: No evidence of adenopathy in the retrocrural, para-aortic, or deep pelvic regions. Bladder: Contours are smooth. Reproductive Organs: No abnormal masses or calcifications seen. Inguinal: The inguinal region is unremarkable without evidence of adenopathy. Bony Structures: Moderate left lumbar scoliosis with associated degenerative changes in the inner cu rvature. CONCLUSION: 1. Abnormal appearance to the colon from the rectum to the descending colon with diffuse thickening of the wall and hypodense appearance to the thickened wall. Is also induration of the fat in the pres acral region and possible free fluid. 2. 2 calcified gallstones, distended gallbladder, and dilation of the common bile duct down to the l evel of the ampulla without calcified stone in the distal common bile. 3. Subsegmental infiltrates in the right lower lung. Electronically signed by: Luis Alaniz MD 03/27/2018 7:13 PM EST
[2018-03-27] MEDS: Amitriptyline 10 MG Tablet PO SCH (22:02)
[2018-03-28] MEDS: Piperacil/Tazo 3.375 GM Premix 50 ML IV.SIG SCH ×3 (01:12→14:35)
[2018-03-28] MEDS: Heparin Drip 25,000 UNIT/250 ML BAG IV.CONT PRN (03:00)
[2018-03-28 06:10] LABS: Baso % (Auto) 0.3 % (0.0-2.0); Eos # (Auto) 0.2 th/mm3 (0.0-0.4); Eos % (Auto) 1.4 % (0.0-4.0); Hematocrit 31.1 % (35.0-46.0); Hemoglobin 10.8 gm/dL (11.6-15.3); Lymph # (Auto) 1.5 th/mm3 (1.0-4.8); Lymph % (Auto) 10.2 % (9.0-44.0); Mean Corpuscular HGB Conc 34.6 % (32.0-36.0); Mean Corpuscular Hemoglobin 30.4 pg (27.0-34.0); Mean Corpuscular Volume 87.7 fL (80.0-100.0); Mean Platelet Volume 9.1 fL (7.0-11.0); Mono % (Auto) 14.1 % (0.0-8.0); Neut # (Auto) 10.6 th/mm3 (1.8-7.7); Platelet Count 280 th/mm3 (150-450); Red Blood Count 3.55 mil/mm3 (4.00-5.30); Red Cell Distribution Width 15.4 % (11.6-17.2); White Blood Count 14.4 th/mm3 (4.0-11.0)
[2018-03-28 06:34] LABS: Calcium 7.4 mg/dL (8.5-10.1); Carbon Dioxide 23.6 meq/L (21.0-32.0); Magnesium 1.7 mg/dL (1.5-2.5); Potassium 3.3 meq/L (3.5-5.1)
[2018-03-28 06:56] LABS: Calcium-Albumin Corrected 8.3 mg/dL (8.5-10.1); Total Protein 5.4 g/dL (6.4-8.2)
[2018-03-28] MEDS: Insulin NovoLOG Aspart Correctional Sugar Inj SQ SCH ×4 (08:45→21:30)
[2018-03-28 08:56] LABS: Lymphocytes 11 % (9-44); Monocytes 10 % (0-8)
[2018-03-28 08:57] LABS: Dohle Bodies Present; Platelet Estimate Normal (Normal); Platelet Morphology Normal (Normal)
[2018-03-28] MEDS: Gabapentin 100 MG Capsule PO SCH ×3 (10:07→17:06)
[2018-03-28] MEDS: Tiotropium Bromide 18 MCG/ACT Inhaler INH SCH (10:08)
[2018-03-28] MEDS: Olopatadine 0.1% Opth Drops 5 ML Bottle EACH EYE SCH ×2 (10:08→21:30)
[2018-03-28] MEDS: Sodium Chloride 0.9% 2 ML Flush BID IV.FLUSH SCH ×2 (10:08→23:31)
--- NOTE | 2018-03-28 14:58 | P.PNIM ---
Subjective Interval history: cc: follow up PE, hypoglycemia, dementia, sepsis with UTI Patient able to state correct location and is oriented to self. She denies shortness of breath at rest. No chest pain, cough, fevers or chills. Afebrile overnight. Remains tachycardic, however, heart rate slightly improved. No reports of lower extremity pain or edema. Patient states she lives by herself but has 2 children who are alive and 2 that are . Physical Exam Vital signs: Last Vital Signs Temp 97.8 F 03/28/18 12:00 Pulse 110 H 03/28/18 12:00 Resp 24 03/28/18 12:00 BP 122/60 03/28/18 12:00 Pulse Ox 94 L 03/28/18 12:00 Intake & Output 03/26/18 03/27/18 03/28/18 03/29/18 06:59 06:59 06:59 06:59 Intake Total 980 / 980 490 / 490 400 / 400 50 / 50 Output Total 1600 / 1600 200 / 200 Balance -620 / -620 490 / 490 200 / 200 50 / 50 Weight 63.7 kg 63.7 kg 63.7 kg Narrative: GENERAL: no acute distress, well nourished SKIN: Warm and dry HEAD: Normocephalic, atraumatic. PERRLA. EYES: No scleral icterus. No injection or drainage. NECK: Supple, trachea midline. No JVD or lymphadenopathy. CARDIOVASCULAR: Regular rate and rhythm without murmurs, gallops, or rubs. RESPIRATORY: Breath sounds equal bilaterally. No accessory muscle use. GASTROINTESTINAL: Abdomen soft, non-tender, nondistended. MUSCULOSKELETAL: No cyanosis, or edema. PSYCHIATRIC: insight and judgement limited Urinary Catheter Management Indwelling Urethral Catheter: Cath placed during this visit: yes, but has since been removed by the nurse Insertion date: 03/25/18 Insertion time: 01:15 Removal date: 03/26/18 Removal time: 13:08 Results Labs CBC & Chem 7: 03/28/18 05:23 03/28/18 05:23 Labs: Microbiology 03/25/18 01:20 Catheterized Urine Urine Culture - Final Staphylococcus simulans Delia glabrata 03/27/18 12:57 Catheterized Urine Urine Culture - Preliminary Immature growth - reincubate 03/27/18 13:13 Blood - Peripheral Aerobic Blood Culture - Preliminary No growth in 1 day 03/27/18 13:13 Blood - Peripheral Anaerobic Blood Culture - Preliminary No growth in 1 day 03/27/18 13:19 Blood - Peripheral Aerobic Blood Culture - Preliminary No growth in 1 day 03/27/18 13:19 Blood - Peripheral Anaerobic Blood Culture - Preliminary No growth in 1 day 03/25/18 00:10 Blood - Peripheral Aerobic Blood Culture - Preliminary No growth in 3 days 03/25/18 00:10 Blood - Peripheral Anaerobic Blood Culture - Preliminary No growth in 3 days 03/25/18 00:15 Blood - Peripheral Aerobic Blood Culture - Preliminary No growth in 3 days 03/25/18 00:15 Blood - Peripheral Anaerobic Blood Culture - Preliminary No growth in 3 days 03/27/18 12:57 Stool Stool Occult Blood ([facility]ERO) - Final Hemoccult negative Imaging Imaging: Impressions Abdomen/Pelvis CT 03/27/18 00:00 CONCLUSION: 1. Abnormal appearance to the colon from the rectum to the descending colon with diffuse thickening of the wall and hypodense appearance to the thickened wall. Is also induration of the fat in the presacral region and possible free fluid. 2. 2 calcified gallstones, distended gallbladder, and dilation of the common bile duct down to the level of the ampulla without calcified stone in the distal common bile. 3. Subsegmental infiltrates in the right lower lung. Assessment and Plan Plan 83 y/o female with history of dementia, diabetes and chronic back pain was sent to ER because of altered mental status. History limited due to her dementia, poor historian. Per the ER note the patient was suspected to aspirate yesterday with some changes in her mental status. She was also found to have a low blood sugar for which she received a dose of Glucagon and D10. #. AMS: suspect multifactorial secondary to hypoglycemia, hypoxia with PE, and underlying dementia - reviewed 03/28/18, unchanged -continue neuro checks -monitor blood glucose -monitor on telemetry #. Pulmonary Embolism: acute - reviewed 03/28/18, unchanged -VQ scan with Abnormal pulmonary perfusion, especially the left lung and high probability for pulmonary embolus. -BLE Doppler U/S negative for DVT -continue on IV heparin drip #. Sepsis with UTI: met sepsis criteria with WBC 18K, tachycardia HR 120s, Tmax 100.7, suspected source-UTI - reviewed 03/28/18 -UA positive for leuks and WBCs -follow urine culture -leukocytosis improved, changed antibiotics from ceftin to IV zosyn 03/27 -patient with occasional abdominal tenderness on exam, abdominal CT 03/27/19 -> Abnormal appearance to the colon from the rectum to the descending colon with diffuse thickening of the wall and hypodense appearance to the thickened wall. -consult ID -repeat UA #. Diabetes with Hypoglycemia: acute - reviewed 03/28/18, improved -resume Lantus -continue patient's gabapentin for neuropathy -monitor accu-checks and cover with SSI -ADA diet #. Dementia, Inability to Care for Self: acute on chronic - reviewed 03/28/18 -consulted palliative care, appreciate assistance #. Chronic Back Pain: chronic - reviewed 03/28/18, stable -continue patient's extended release dilaudid 12mg po daily (verified on E- [facility]) -Consult PT/OT #. Sinus Tachycardia: possibly multifactorial with sepsis and PE - reviewed , improved -EKG with sinus tachycardia -treat infection as above #. Poor Oral Intake: chronic, suspect secondary to dementia - reviewed 03/28/18 -continue patient's megace and remeron #. Hyperlipidemia: chronic -continue patient's statin MDM: POA Code: No code, DNR GI ppx: PPI DVT Prophylaxis: on heparin drip Progress Note: Quality VTE Deep Vein Thrombosis/Pulmonary Embolism Present on Admission: No
--- NOTE | 2018-03-28 17:03 | P.PNPAL ---
Reason for Visit Reason for visit: a. To assist with evaluation and management of symptoms including: Dyspnea, confusion, pain b. To assist medical decision maker(s) with: better understanding of current medical conditions; weighing benefits/burdens of medical treatment options; making medical treatment decisions. Subjective Subjective/Interval History: Seen today to follow-up on comfort, goals of treatment. Over the weekend with some abdominal pain, OT ordered findings of abnormal colon wall thickening, gallstones. WBC up over the weekend 18.1, today 14.4. H&H stable though down slightly 10.8/31.1. Remains on Zosyn. Repeat urinalysis from yesterday 03/17 pending, blood culture yesterday no growth x 1 day. Patient seen in room, daughter and hospice admissions nurse at bedside. Patient is alert, pleasant eating a fish sandwich from [employer]. She is oriented to self and her daughter. She indicates she is ready to get out of here. Indicates that she is feeling pretty good. No particular pain or other symptoms endorsed. Breathing comfortably. Review with daughter she indicates she has met with hospice and signed consents , she would like patient to continue what meds are appropriate for her underlying psychiatric conditions however wishes to proceed with hospice enrollment. She endorses that patient would not want to suffer nor continue to have hospitalizations. She wants to get patient discharged back to [place] with hospice services there. Objective Vital Signs: Vital Signs 03/27/18 20:00 03/27/18 22:00 03/28/18 00:00 Temperature 98.4 F 98.7 F Pulse Rate 116 H 120 H Respiratory Rate 19 22 Blood Pressure 106/51 L 103/53 L Pulse Oximetry 95 95 93 L 03/28/18 04:00 03/28/18 05:27 03/28/18 08:00 Temperature 98.6 F 97.8 F Pulse Rate 113 H 90 Respiratory Rate 20 22 Blood Pressure 108/51 L 114/54 L Pulse Oximetry 96 96 93 L 03/28/18 12:00 Temperature 97.8 F Pulse Rate 110 H Respiratory Rate 24 Blood Pressure 122/60 Pulse Oximetry 94 L Intake & Output 03/27/18 03/28/18 03/28/18 18:59 06:59 18:59 Intake Total 50 / 50 350 / 350 50 / 50 Output Total 200 / 200 Balance 50 / 50 150 / 150 50 / 50 Weight 63.7 kg Intake: IV 50 / 50 350 / 350 50 / 50 Heparin/D5W 25,000 U/250 mL 25, 250 / 250 000 unit In 250 ml @ Per Protocol IV.CONT TITRATE PRN Rx #:[id number] Zosyn 3.375 GM Premix 50 ML @ 50 / 50 100 / 100 50 / 50 100 mls/hr IV.SIG Q6H CARLYLE Rx#: [id number] Output: Urine 200 / 200 Other: # Incontinent Voids 1 3 Date of Last Bowel Movement 03/27/18 03/27/18 03/28/18 # Bowel Movements 2 # Incontinent Bowel Movements 1 2 Physical Exam: CONSTITUTIONAL/GENERAL: This is an adequately nourished patient, in no apparent distress. TUBES/LINES/DRAINS: Peripheral IV left hand. SKIN: No jaundice, rashes, or lesions. Ecchymoses on upper extremities. No wounds seen anteriorly. Skin temperature appropriate. Not diaphoretic. HEAD: Atraumatic. Normocephalic. EYES: Pupils equal and round and reactive. Extraocular motions intact. No scleral icterus. No injection or drainage. Fundi not examined. ENT: Hearing grossly normal. Nose without bleeding or purulent drainage. Throat without visible erythema, exudates, masses, or lesions. NECK: Trachea midline. Supple, nontender. No palpable thyroid enlargement or nodularity. CARDIOVASCULAR: Tachycardic. No JVD. Peripheral pulses symmetric. RESPIRATORY/CHEST: Symmetric, unlabored respirations. Clear to auscultation. Breath sounds equal bilaterally. No wheezes, rales, or rhonchi. GASTROINTESTINAL: Abdomen tender to light palpation, + guarding. No palpable masses. No guarding. Bowel sounds present. GENITOURINARY: Without palpable bladder distension. Delgado catheter in place. MUSCULOSKELETAL: Tenderness in left upper extremity. Limited joint movement. LYMPHATICS: No palpable cervical or supraclavicular adenopathy. NEUROLOGICAL: Awake and alert. Motor and sensory grossly within normal limits. Follows commands. Moves all extremities. PSYCHIATRIC: No obvious anxiety/depression. no apparent hallucinations or other psychotic thought process. Diagnostic Tests Laboratory: Laboratory Results - last 72 hr 03/25/18 03/25/18 03/25/18 01:20 17:00 18:45 WBC RBC Hgb Hct MCV MCH MCHC RDW Plt Count MPV Prelim Diff (Auto) Neut % (Auto) Lymph % (Auto) Page % (Auto) Eos % (Auto) Baso % (Auto) Neut # (Auto) Lymph # (Auto) Page # (Auto) Eos # (Auto) Baso # (Auto) WBC Differential Seg Neuts % (Manual) Band Neuts % (Manual) Lymphocytes % (Manual) Monocytes % (Manual) Basophils % (Manual) Abs Neuts (Manual) Differential Comment Toxic Vacuolation Dohle Bodies Platelet Estimate Platelet Morphology RBC Morphology APTT 68.5 H D Sodium Potassium Chloride Carbon Dioxide Anion Gap BUN Creatinine Estimated GFR POC Glucose 219 H Random Glucose Hemoglobin A1c Lactic Acid Calcium Prot Corrected Calcium Magnesium Total Protein Lipase Urine Color Yellow Urine Clarity Clear Urine pH 5.0 Ur Specific [place] 1.009 Urine Protein Negative Urine Glucose (UA) 50 Urine Ketones Negative Urine Occult Blood Negative Urine Nitrate Negative Urine Bilirubin Negative Urine Ictotest Urine Urobilinogen Less than 2 Ur Leukocyte Esterase Small H Urine RBC 5 H Urine WBC 16 H Urine WBC Clumps Ur Squamous Epith Cells <1 Urine Bacteria Rare H Hyaline Casts 3 Urine Mucus Few H Urine Yeast Micro UA Comment Cath-culture ind Ur Microscopic Review Urine Culture Comments Cath-cult indicated 03/25/18 03/26/18 03/26/18 22:21 00:22 06:29 WBC 13.4 H RBC 3.96 L Hgb 12.1 D Hct 36.5 MCV 92.1 MCH 30.6 MCHC 33.2 RDW 15.3 Plt Count 295 MPV 10.1 Prelim Diff (Auto) Slide review pending Neut % (Auto) 82.5 H Lymph % (Auto) 9.9 Page % (Auto) 5.2 Eos % (Auto) 1.5 Baso % (Auto) 0.9 Neut # (Auto) 11.1 H Lymph # (Auto) 1.3 Page # (Auto) 0.7 Eos # (Auto) 0.2 Baso # (Auto) 0.1 WBC Differential Manual diff final Seg Neuts % (Manual) 32 Band Neuts % (Manual) 50 H Lymphocytes % (Manual) 10 Monocytes % (Manual) 7 Basophils % (Manual) 1 Abs Neuts (Manual) 11.0 H Differential Comment . Toxic Vacuolation Dohle Bodies Platelet Estimate Normal Platelet Morphology Normal RBC Morphology Normal APTT 64.1 H Sodium Potassium Chloride Carbon Dioxide Anion Gap BUN Creatinine Estimated GFR POC Glucose 249 H Random Glucose Hemoglobin A1c Lactic Acid Calcium Prot Corrected Calcium Magnesium Total Protein Lipase Urine Color Urine Clarity Urine pH Ur Specific [place] Urine Protein Urine Glucose (UA) Urine Ketones Urine Occult Blood Urine Nitrate Urine Bilirubin Urine Ictotest Urine Urobilinogen Ur Leukocyte Esterase Urine RBC Urine WBC Urine WBC Clumps Ur Squamous Epith Cells Urine Bacteria Hyaline Casts Urine Mucus Urine Yeast Micro UA Comment Ur Microscopic Review Urine Culture Comments 03/26/18 03/26/18 03/26/18 06:29 06:29 08:43 WBC RBC Hgb Hct MCV MCH MCHC RDW Plt Count MPV Prelim Diff (Auto) Neut % (Auto) Lymph % (Auto) Page % (Auto) Eos % (Auto) Baso % (Auto) Neut # (Auto) Lymph # (Auto) Page # (Auto) Eos # (Auto) Baso # (Auto) WBC Differential Seg Neuts % (Manual) Band Neuts % (Manual) Lymphocytes % (Manual) Monocytes % (Manual) Basophils % (Manual) Abs Neuts (Manual) Differential Comment Toxic Vacuolation Dohle Bodies Platelet Estimate Platelet Morphology RBC Morphology APTT Sodium 136 Potassium 3.7 Chloride 101 Carbon Dioxide 21.3 Anion Gap 14 BUN 15 Creatinine 0.98 Estimated GFR 54 L POC Glucose 275 H Random Glucose 221 H D Hemoglobin A1c 7.4 H Lactic Acid Calcium 8.1 L D Prot Corrected Calcium Magnesium Total Protein Lipase Urine Color Urine Clarity Urine pH Ur Specific [place] Urine Protein Urine Glucose (UA) Urine Ketones Urine Occult Blood Urine Nitrate Urine Bilirubin Urine Ictotest Urine Urobilinogen Ur Leukocyte Esterase Urine RBC Urine WBC Urine WBC Clumps Ur Squamous Epith Cells Urine Bacteria Hyaline Casts Urine Mucus Urine Yeast Micro UA Comment Ur Microscopic Review Urine Culture Comments 03/26/18 03/26/18 03/26/18 11:27 12:12 16:56 WBC RBC Hgb Hct MCV MCH MCHC RDW Plt Count MPV Prelim Diff (Auto) Neut % (Auto) Lymph % (Auto) Page % (Auto) Eos % (Auto) Baso % (Auto) Neut # (Auto) Lymph # (Auto) Page # (Auto) Eos # (Auto) Baso # (Auto) WBC Differential Seg Neuts % (Manual) Band Neuts % (Manual) Lymphocytes % (Manual) Monocytes % (Manual) Basophils % (Manual) Abs Neuts (Manual) Differential Comment Toxic Vacuolation Dohle Bodies Platelet Estimate Platelet Morphology RBC Morphology APTT 50.6 H D Sodium Potassium Chloride Carbon Dioxide Anion Gap BUN Creatinine Estimated GFR POC Glucose 279 H 215 H Random Glucose Hemoglobin A1c Lactic Acid Calcium Prot Corrected Calcium Magnesium Total Protein Lipase Urine Color Urine Clarity Urine pH Ur Specific [place] Urine Protein Urine Glucose (UA) Urine Ketones Urine Occult Blood Urine Nitrate Urine Bilirubin Urine Ictotest Urine Urobilinogen Ur Leukocyte Esterase Urine RBC Urine WBC Urine WBC Clumps Ur Squamous Epith Cells Urine Bacteria Hyaline Casts Urine Mucus Urine Yeast Micro UA Comment Ur Microscopic Review Urine Culture Comments 03/26/18 03/27/18 03/27/18 22:03 06:37 06:37 WBC 18.1 H RBC 3.95 L Hgb 11.9 Hct 35.4 MCV 89.6 MCH 30.2 MCHC 33.7 RDW 15.1 Plt Count 309 MPV 9.8 Prelim Diff (Auto) Slide review pending Neut % (Auto) 78.9 H Lymph % (Auto) 8.3 L Page % (Auto) 11.9 H Eos % (Auto) 0.3 Baso % (Auto) 0.6 Neut # (Auto) 14.2 H Lymph # (Auto) 1.5 Page # (Auto) 2.1 H Eos # (Auto) 0.1 Baso # (Auto) 0.1 WBC Differential Manual diff final Seg Neuts % (Manual) 47 Band Neuts % (Manual) 36 H Lymphocytes % (Manual) 7 L Monocytes % (Manual) 10 H Basophils % (Manual) Abs Neuts (Manual) 15.0 H Differential Comment . Toxic Vacuolation Present H Dohle Bodies Present H Platelet Estimate Normal Platelet Morphology Normal RBC Morphology APTT 46.7 H Sodium Potassium Chloride Carbon Dioxide Anion Gap BUN Creatinine Estimated GFR POC Glucose 255 H Random Glucose Hemoglobin A1c Lactic Acid Calcium Prot Corrected Calcium Magnesium Total Protein Lipase Urine Color Urine Clarity Urine pH Ur Specific [place] Urine Protein Urine Glucose (UA) Urine Ketones Urine Occult Blood Urine Nitrate Urine Bilirubin Urine Ictotest Urine Urobilinogen Ur Leukocyte Esterase Urine RBC Urine WBC Urine WBC Clumps Ur Squamous Epith Cells Urine Bacteria Hyaline Casts Urine Mucus Urine Yeast Micro UA Comment Ur Microscopic Review Urine Culture Comments 03/27/18 03/27/18 03/27/18 06:37 06:37 07:39 WBC RBC Hgb Hct MCV MCH MCHC RDW Plt Count MPV Prelim Diff (Auto) Neut % (Auto) Lymph % (Auto) Page % (Auto) Eos % (Auto) Baso % (Auto) Neut # (Auto) Lymph # (Auto) Page # (Auto) Eos # (Auto) Baso # (Auto) WBC Differential Seg Neuts % (Manual) Band Neuts % (Manual) Lymphocytes % (Manual) Monocytes % (Manual) Basophils % (Manual) Abs Neuts (Manual) Differential Comment Toxic Vacuolation Dohle Bodies Platelet Estimate Platelet Morphology RBC Morphology APTT Sodium 135 L Potassium 3.6 Chloride 101 Carbon Dioxide 22.3 Anion Gap 12 BUN 26 H Creatinine 1.04 H Estimated GFR 51 L POC Glucose 205 H Random Glucose 183 H Hemoglobin A1c Lactic Acid Calcium 8.1 L Prot Corrected Calcium Magnesium 1.8 Total Protein Lipase 20 L Urine Color Urine Clarity Urine pH Ur Specific [place] Urine Protein Urine Glucose (UA) Urine Ketones Urine Occult Blood Urine Nitrate Urine Bilirubin Urine Ictotest Urine Urobilinogen Ur Leukocyte Esterase Urine RBC Urine WBC Urine WBC Clumps Ur Squamous Epith Cells Urine Bacteria Hyaline Casts Urine Mucus Urine Yeast Micro UA Comment Ur Microscopic Review Urine Culture Comments 03/27/18 03/27/18 03/27/18 11:56 12:57 13:19 WBC RBC Hgb Hct MCV MCH MCHC RDW Plt Count MPV Prelim Diff (Auto) Neut % (Auto) Lymph % (Auto) Page % (Auto) Eos % (Auto) Baso % (Auto) Neut # (Auto) Lymph # (Auto) Page # (Auto) Eos # (Auto) Baso # (Auto) WBC Differential Seg Neuts % (Manual) Band Neuts % (Manual) Lymphocytes % (Manual) Monocytes % (Manual) Basophils % (Manual) Abs Neuts (Manual) Differential Comment Toxic Vacuolation Dohle Bodies Platelet Estimate Platelet Morphology RBC Morphology APTT Sodium Potassium Chloride Carbon Dioxide Anion Gap BUN Creatinine Estimated GFR POC Glucose 312 H Random Glucose Hemoglobin A1c Lactic Acid 1.7 Calcium Prot Corrected Calcium Magnesium Total Protein Lipase Urine Color [place] Urine Clarity Hazy H Urine pH 5.0 Ur Specific [place] 1.024 Urine Protein 30 H Urine Glucose (UA) Negative Urine Ketones Trace H Urine Occult Blood Negative Urine Nitrate Negative Urine Bilirubin Negative Urine Ictotest Negative Urine Urobilinogen 4 or greater Ur Leukocyte Esterase Small H Urine RBC 4 H Urine WBC 33 H Urine WBC Clumps Few H Ur Squamous Epith Cells 1 Urine Bacteria Rare H Hyaline Casts 5 Urine Mucus Few H Urine Yeast Many H Micro UA Comment Cath-culture ind Ur Microscopic Review Not Reportable Urine Culture Comments Cath-cult indicated 03/27/18 03/27/18 03/28/18 17:14 21:45 05:23 WBC 14.4 H RBC 3.55 L Hgb 10.8 L Hct 31.1 L MCV 87.7 MCH 30.4 MCHC 34.6 RDW 15.4 Plt Count 280 MPV 9.1 Prelim Diff (Auto) Slide review pending Neut % (Auto) 74.0 H Lymph % (Auto) 10.2 Page % (Auto) 14.1 H Eos % (Auto) 1.4 Baso % (Auto) 0.3 Neut # (Auto) 10.6 H Lymph # (Auto) 1.5 Page # (Auto) 2.0 H Eos # (Auto) 0.2 Baso # (Auto) 0.0 WBC Differential Manual diff final Seg Neuts % (Manual) 60 Band Neuts % (Manual) 19 H Lymphocytes % (Manual) 11 Monocytes % (Manual) 10 H Basophils % (Manual) Abs Neuts (Manual) 11.4 H Differential Comment . Toxic Vacuolation Dohle Bodies Present H Platelet Estimate Normal Platelet Morphology Normal RBC Morphology APTT Sodium Potassium Chloride Carbon Dioxide Anion Gap BUN Creatinine Estimated GFR POC Glucose 247 H 198 H Random Glucose Hemoglobin A1c Lactic Acid Calcium Prot Corrected Calcium Magnesium Total Protein Lipase Urine Color Urine Clarity Urine pH Ur Specific [place] Urine Protein Urine Glucose (UA) Urine Ketones Urine Occult Blood Urine Nitrate Urine Bilirubin Urine Ictotest Urine Urobilinogen Ur Leukocyte Esterase Urine RBC Urine WBC Urine WBC Clumps Ur Squamous Epith Cells Urine Bacteria Hyaline Casts Urine Mucus Urine Yeast Micro UA Comment Ur Microscopic Review Urine Culture Comments 03/28/18 03/28/18 03/28/18 05:23 05:23 08:09 WBC RBC Hgb Hct MCV MCH MCHC RDW Plt Count MPV Prelim Diff (Auto) Neut % (Auto) Lymph % (Auto) Page % (Auto) Eos % (Auto) Baso % (Auto) Neut # (Auto) Lymph # (Auto) Page # (Auto) Eos # (Auto) Baso # (Auto) WBC Differential Seg Neuts % (Manual) Band Neuts % (Manual) Lymphocytes % (Manual) Monocytes % (Manual) Basophils % (Manual) Abs Neuts (Manual) Differential Comment Toxic Vacuolation Dohle Bodies Platelet Estimate Platelet Morphology RBC Morphology APTT 45.5 H Sodium 133 L Potassium 3.3 L Chloride 98 Carbon Dioxide 23.6 Anion Gap 11 BUN 28 H Creatinine 0.95 Estimated GFR 56 L POC Glucose 189 H Random Glucose 174 H Hemoglobin A1c Lactic Acid Calcium 7.4 L* Prot Corrected Calcium 8.3 L Magnesium 1.7 Total Protein 5.4 L D Lipase Urine Color Urine Clarity Urine pH Ur Specific [place] Urine Protein Urine Glucose (UA) Urine Ketones Urine Occult Blood Urine Nitrate Urine Bilirubin Urine Ictotest Urine Urobilinogen Ur Leukocyte Esterase Urine RBC Urine WBC Urine WBC Clumps Ur Squamous Epith Cells Urine Bacteria Hyaline Casts Urine Mucus Urine Yeast Micro UA Comment Ur Microscopic Review Urine Culture Comments 03/28/18 16:43 WBC RBC Hgb Hct MCV MCH MCHC RDW Plt Count MPV Prelim Diff (Auto) Neut % (Auto) Lymph % (Auto) Page % (Auto) Eos % (Auto) Baso % (Auto) Neut # (Auto) Lymph # (Auto) Page # (Auto) Eos # (Auto) Baso # (Auto) WBC Differential Seg Neuts % (Manual) Band Neuts % (Manual) Lymphocytes % (Manual) Monocytes % (Manual) Basophils % (Manual) Abs Neuts (Manual) Differential Comment Toxic Vacuolation Dohle Bodies Platelet Estimate Platelet Morphology RBC Morphology APTT Sodium Potassium Chloride Carbon Dioxide Anion Gap BUN Creatinine Estimated GFR POC Glucose 240 H Random Glucose Hemoglobin A1c Lactic Acid Calcium Prot Corrected Calcium Magnesium Total Protein Lipase Urine Color Urine Clarity Urine pH Ur Specific [place] Urine Protein Urine Glucose (UA) Urine Ketones Urine Occult Blood Urine Nitrate Urine Bilirubin Urine Ictotest Urine Urobilinogen Ur Leukocyte Esterase Urine RBC Urine WBC Urine WBC Clumps Ur Squamous Epith Cells Urine Bacteria Hyaline Casts Urine Mucus Urine Yeast Micro UA Comment Ur Microscopic Review Urine Culture Comments Result Diagrams: 03/28/18 05:23 03/28/18 05:23 Microbiology: Microbiology 03/25/18 01:20 Urine Culture - Final Catheterized Urine Staphylococcus simulans Delia glabrata 03/27/18 12:57 Urine Culture - Preliminary Catheterized Urine Immature growth - reincubate 03/27/18 13:13 Aerobic Blood Culture - Preliminary Blood - Peripheral No growth in 1 day Anaerobic Blood Culture - Preliminary No growth in 1 day 03/27/18 13:19 Aerobic Blood Culture - Preliminary Blood - Peripheral No growth in 1 day Anaerobic Blood Culture - Preliminary No growth in 1 day 03/25/18 00:10 Aerobic Blood Culture - Preliminary Blood - Peripheral No growth in 3 days Anaerobic Blood Culture - Preliminary No growth in 3 days 03/25/18 00:15 Aerobic Blood Culture - Preliminary Blood - Peripheral No growth in 3 days Anaerobic Blood Culture - Preliminary No growth in 3 days 03/27/18 12:57 Stool Occult Blood ([facility]) - Final Stool Hemoccult negative Assessment and Plan Pertinent Non-Medical Issues: Psychosocial: Patient is originally from [facility]. She worked as a "[employer] "with her father for some time. She is , she had 4 children , only 2 are living now. She suffered the of her son and daughter within a month's time of each other. She had been living with her daughter until about a year ago when she was transition to long-term care facility due to progression of her dementia and increasing care demands. Spiritual: Daughter reports face was important in the patient's life at one point. She had not been very spiritual in the recent past, Is receptive to health services information specialist visit. Legal: Patient is not capacitated to make her own decisions at this time, likely will not regain capacity. Daughter has power of trade mark attorney paperwork however healthcare power of trade mark attorney section is not signed. Patient had 4 children, only 2 are living. Call placed to second daughter, Aiyana who is in agreement with her sister Loretta making healthcare decisions for the patient Ethical issues impacting care: None Important Contacts: Daughter Loretta Lopez: [phone] Grandchild Teja Casanova: [phone] Prognosis: Patient has a long history of dementia which has been exacerbated by multiple infections, hospitalizations, and loss of multiple family members over the past year, as well as underlying psych issues. Daughter recently had to transition her to long-term care due to increasing in care needs. She was somewhat ambulatory started having frequent falls with fractures and other injuries, is now essentially bedbound. Patient also has bipolar disorder which may likely compounded confusion. Given her underlying COPD, and newly found pulmonary embolism, life expectancy is limited if not treated. Patient would be appropriate for hospice services if family's goals are appropriate. Code Status: No Code DNR Plan: Legal decision maker: Patient is not capacitated to make her own decisions at this time, likely will not regain capacity. Daughter has power of trade mark attorney paperwork however healthcare power of trade mark attorney section is not signed. Patient had 4 children, only 2 are living. Call placed to second daughter, Aiyana who is in agreement with her sister Loretta making healthcare decisions for the patient Goals: Daughter would like patient to return with hospice services, comfort oriented treatments only. She would like to continue psychiatric meds to help patient mood is stable as possible. CODE STATUS: DNR SYMPTOMS: --Pain: Patient has a history of chronic pain secondary to multiple falls with fractures. Appears comfortable at this time however complains of abdominal tenderness to light palpation. Recent CT abdomen with some abnormal thickening of colon wall, possible gallstones. We will continue to assess. --Dyspnea: Patient has a history of COPD and now has pulmonary embolism. She has chronically been on oxygen prior to this hospitalization. She appears comfortable, no dyspnea, will continue to assess. Had been requiring BiPAP in the emergency room but has been weaned back to nasal cannula. High risk for further setbacks secondary to PE and history of COPD. --Confusion: Patient has a history of dementia and bipolar. She was also found hypoglycemic with a blood sugar in the 30s. At this time she is confused but can answer some questions appropriately. At this time she is not restless or agitated. She appears comfortable, pleasant, cooperative. Palliative care will continue to follow during hospital course as condition evolves, to assist patient/decision-maker with understanding of medical conditions, weighing benefits/burdens of treatment options, for clarification of goals of treatment. Additionally will assist with any symptoms of palliative concern Attestation Attestation: To help prompt me to consider important information that might be impacting today's encounter and assessment, information from prior notes written by myself or my colleagues may have been "brought forward" into today's note. My signature on this note, however, is an attestation that I personally performed the exam, history, and/or decision-making noted today, and, unless otherwise indicated, the interactions with patient, family, and staff as well as the review of records all occurred today. I also attest that the listed assessment and stated plan reflect my best clinical judgment today based on the combination of historical information, prior notes, and today's exam/ interactions. When time spent is documented, it refers only to time spent today by the signer, or if indicated, combined time spent today by collaborating physician/nurse practitioner.
--- NOTE | 2018-03-28 17:51 | P.PNWCN ---
Wound Care Nurse Consult Description: Received pressure ulcer consult for coccyx wound noted on admission from Doctor Emanuel Communicated with: EVER corodba and Doctor Recommendation: 1.Please cleanse wounds to L side of sacrum and medial sacral area with normal saline or wound cleanser. Apply Calazime skin protectant paste covering wounds BID and leave open to air until loose stools stop. If no more loose stools then cleanse wounds with normal saline or wound cleanser and pat dry and cover with Optifoam gentle 4x4 change every 3 days or as needed if saturated or dislodged. 2. Turn patient every 2 hours from L side to R side offloading pressure from cary prominences. 3. Place patient on low airloss mattress/bed when available Wound/Pressure Injury - Wound Left side of the sacrum Wound Staging: Stage II Wound Assessment: Ongoing Wound Type: Pressure Injury Is This a Chronic Wound: No Requested from Provider a Wound Care Consult: Yes Length (cm): 3 (~3cm) Width (cm): 2 (~2cm) Depth (cm): 0.1 (~0.1cm) Wound Bed Appearance: [place] Wound Bed Appearance: Wound bed presents with 100% pink tissue. Wound presents as partial thickness. Surrounding Tissue Appearance: [place] Surrounding Tissue Temperature: Cool Drainage Amount: None Drainage Odor: No Odor Dressing Status: Open to Air Cleansing Solution: Saline Midline Sacrum Wound Staging: Stage III Wound Type: Pressure Injury Is This a Chronic Wound: No Requested from Provider a Wound Care Consult: Yes (Wound care saw patient) Length (cm): 1 (~1cm) Width (cm): 1 (~1cm) Depth (cm): 0.3 (~0.1cm) Wound Bed Appearance: [place] Wound Bed Appearance: wound bed presents with 100% pink tissue that is deeper than the first layer of skin Surrounding Tissue Appearance: [place] Surrounding Tissue Temperature: Cool Drainage Amount: None Drainage Odor: No Odor Dressing Status: Open to Air Cleansing Solution: Saline - Additional Information Patient seen on for pressure ulcer coccyx wound noted on admission. Patient was positioned toward the L side with the assistance of EVER cordoba and journalists and other writers to reveal open wound to L side of the sacral area and wound over the medial sacral area. Wound to medial sacral area presents as a stage 3 pressure injury that is small with 100% pink tissue that is deeper than the first layer of skin. L side of the sacral area is noted with partial thickness wound that is 100% pink and dry. Wound is a stage 2 pressure injury.Full wound measurements and description are noted above. Wounds were cleansed with normal saline and patted dry. Patient is observed with loose stools, per RN patient is still having multiple loose stools today. Patient is also noted laying on cotton pad with two staggered ultrasorb pads underneath patient, bed is also noted with depression is the middle. Removed thick cotton pad and soiled ultrasorb pads. Patient was cleansed with Remedy barrier wipes and patted dry. One ultra sorb pad was placed under patient, RN to apply Calazime skin protectant paste BID for now. Low airloss bed ordered.
[2018-03-28] MEDS ORDERED: Insulin Detemir Inj 1,000 UNIT/10 ML Vial SQ SCH (21:00)
--- NOTE | 2018-03-28 21:13 | MB ---
cc: Carlos Trevino MD DATE: 03/28/2018 REQUESTING PHYSICIAN: Oz Calderon MD REASON FOR CONSULTATION: Sepsis with persistent leukocytosis, fever, encephalopathy with history of dementia, abnormal CT scan, UTI. HISTORY OF PRESENT ILLNESS: This is an 83-year-old white female who presented to the emergency department on 03/25/2018 with respiratory symptoms. The patient has dementia. She apparently was more disoriented at the facility where she is residing, and was felt to likely have aspirated, and she was also noted to have low blood sugar. She was put on BiPAP initially. Her heart rate was 122 in the emergency department and white count was elevated at 17.6. She has had a low-grade elevated temperature. Her temperature was 100.7 on admission and subsequently she had a couple episodes of fever with temperatures about 100 degrees. Workup revealed abnormal urinalysis with 16 white cells and the urine culture had less than 10,000 colonies of Staphylococcus simulans and Delia glabrata. Urine culture was repeated and the result is pending. Blood cultures, no growth from admission. Again, repeat blood culture from 03/27/2018 had no growth in 1 day. The white blood cell count has decreased and is 14.4 today. The patient's daughter tells me that she has had loose stools since admission. CT scan of the abdomen shows abnormal appearance of the colon from the rectum to the descending colon with diffuse thickening of the wall and hypodense appearance to the thickened wall. Two calcified gallstones and distended gallbladder is noted as well, and also subsegmental infiltrate in the right lower lung. The patient is not able to give me any history. Her daughter is at bedside and provides information. The patient, who appears comfortable, however. She awakens and when asked how she is doing, she indicates that she feels okay. She is not coughing. Her last maximum temperature was 100 degrees at 4 a.m. yesterday. Temperature has been normal since then. The patient had a pulmonary perfusion imaging which shows abnormal perfusion and high probability for pulmonary embolism. The patient's daughter is trying to get her to eat. She has no interest in food at this time, per her daughter. PAST MEDICAL HISTORY: 1. Chronic obstructive pulmonary disease, diabetes mellitus, hyperlipidemia, hypokalemia, dementia, gastroesophageal reflux disease. 2. Hypertension. 3. Acute kidney failure, which recovered, acidosis, anxiety disorder, low back pain, restless leg syndrome, history of bowel resection, history of colostomy, history of tonsillectomy, history of colostomy reversal, history of Clostridium difficile infection. ALLERGIES: MORPHINE. MEDICATIONS: 1. Piperacillin/tazobactam. 2. Protonix. 3. Megace. 4. Insulin. 5. Dilaudid. 6. BREO Ellipta. 7. Neurontin. 8. Elavil. 9. Pravachol. 10. Spiriva. SOCIAL HISTORY: The patient reportedly is a smoker every day. No alcohol. No illicit drugs. FAMILY HISTORY: Noncontributory. REVIEW OF SYSTEMS: Difficult to obtain because of the patient's mental status. PHYSICAL EXAMINATION: GENERAL: Slender female who is in no acute distress, but she appears lethargic. VITAL SIGNS: Include temperature 97.8, BP is 122/60, respirations 24, heart rate 110. HEENT: Head is atraumatic. Extraocular movements are grossly intact. No icterus. Oropharynx slightly dry mucosa. NECK: Supple, without adenopathy or swelling. LUNGS: Clear breath sounds bilaterally. HEART: Regular S1, S2, without murmurs, rubs or gallops. ABDOMEN: Bowel sounds present, soft, no tenderness appreciated. RECTAL: Not performed. EXTREMITIES: No clubbing, cyanosis or edema. Muscle wasting of the upper extremities. SKIN: No diffuse rash. NEUROLOGIC: Difficult to assess because of the patient's mental status. PSYCHIATRIC: The patient is calm. LABORATORY DATA: WBC 14.4, platelets 280, 74% neutrophils, 10% lymphocytes, 14% monocytes. The differential includes 19% band. Estimated GFR 56. BUN 28, creatinine 0.95, sodium 133. IMPRESSION: 1. Leukocytosis, probably secondary to infection, but this could also be due to colitis as well. 2. Urinary tract infection, possible, although the colony count in the urine from 03/25/2018 was very low and therefore unlikely to be significant. Repeat urine culture was taken on 03/27/2018 and the result is pending. 3. Diarrhea. Rule out Clostridium difficile. The patient has history of colitis and CT scan of the abdomen is showing diffuse thickening of the wall of the colon. 4. Pulmonary embolism, which could also be a cause of the fever as well. 5. Abnormal CT scan showing possible infiltrates or subsegmental infiltrates located in the right lower lung. This could potentially be atelectasis. RECOMMENDATIONS: 1. Discontinue piperacillin/tazobactam. 2. Obtain stool for Clostridium difficile testing. 3. Treat Clostridium difficile if positive. 4. Follow the urine culture and pay attention to the colony count to determine if she will need antibiotic treatment for UTI. 5. Follow the temperature and white blood cell count. The patient's family is considering hospice transfer, but want her to be treated for infection prior to making further decision. Thank you for this consultation. The patient's daughter has been updated on the plan from my standpoint. MD MADELEINE Foley/ankush , 05:57 PM , 06:14 PM ALBERT
[2018-03-28] MEDS: Amitriptyline 10 MG Tablet PO SCH (22:06)
[2018-03-29] MEDS: Sodium Chloride 0.9% 2 ML Flush BID IV.FLUSH SCH ×2 (08:38→20:14)
[2018-03-29] MEDS: Gabapentin 100 MG Capsule PO SCH ×3 (08:38→17:43)
[2018-03-29] MEDS: Olopatadine 0.1% Opth Drops 5 ML Bottle EACH EYE SCH ×2 (08:38→20:15)
[2018-03-29] MEDS: Insulin NovoLOG Aspart Correctional Sugar Inj SQ SCH ×4 (08:38→20:11)
[2018-03-29] MEDS: Tiotropium Bromide 18 MCG/ACT Inhaler INH SCH (08:39)
--- NOTE | 2018-03-29 13:59 | P.DIET ---
Nutritional Evaluation Type of nutrition evaluation: initial Nutrition consult regarding: Diet Evaluation Nutrition screening: [facility] Screening comments: 03/29 [facility] for Wound Objective - Diagnosis hypoglycemia/respiratory distress/ PE - Objective Body Mass Index: 24.3 % IBW: 119 (IBW = 115lb) Body Weight Used for Calculations: Actual Energy Needs - Lower Range (kCal/kg): 25 Energy Needs - Upper Range (kCal/kg): 30 Lower Limit kCal/kg (kCals): 1,555 Upper Limit kCal/kg (kCals): 1,866 Lower Limit Protein Factor (Grams per Kg): 1.2 Upper Limit Protein Factor (Grams per Kg): 1.5 Lower Protein Needs (Protein): 75 Upper Protein Needs (Protein): 93 Dietitian Reviewed in Medical Record: Current diet, Curent medications, Intake & Output, Labs, Medical history Diet Order: cardiac diet Oral Diet Intake Amount: Poor <50% Wound Care Note: L sacrum pressure injury stage II mid sacrum pressure injury stage III Objective Comments: PMH: ANATOLIY, AMS, COPD, dementia, DM, GERD, HTN, HLD Meds: megace, remeron Labs: BUN 28, GFR 56, POC glucose 189, 186, 150, 143, Ca+ 7.4 Assessment Assessment: [facility] for wound received on 03/29. Pt currently consuming around 25-50% of most meals and on appetite stimulants. Pallative care note reviewed. Wound care notes reviewed, pt has 2 wounds on sacrum stage II-III. RD to recommend Dennis BID to aid in wound healing. Will continue to assess pts nutritional needs for additional supplements. Monitor PO and supplement intake. Labs reviewed, dietitian following. Recommendations: 1. Pt has 2 wounds on sacrum stage II-III. RD to recommend Dennis BID to aid in wound healing 2. Will continue to assess pts nutritional needs for additional supplements 3. Monitor PO and supplement intake 4. Dietitian following Dietitian to Monitor: Lab values, Glucose level, Intake & Output, Diet tolerance , PO Intake, Medical course
--- NOTE | 2018-03-29 16:01 | P.PNID ---
Subjective Remarks: Patient is awake. No complaints. Denies chills but states that the room is cold. RN reports that she is taking her pills but not eating. This is an 83-year-old white female who presented to the emergency department on 03/25/2018 with respiratory symptoms. The patient has dementia. She apparently was more disoriented at the facility where she is residing, and was felt to likely have aspirated, and she was also noted to have low blood sugar. She was put on BiPAP initially. Her heart rate was 122 in the emergency department and white count was elevated at 17.6. She has had a low-grade elevated temperature. Her temperature was 100.7 on admission and subsequently she had a couple episodes of fever with temperatures about 100 degrees. Past Medical History: PAST MEDICAL HISTORY: Chronic obstructive pulmonary disease, diabetes mellitus, hyperlipidemia, hypokalemia, dementia, gastroesophageal reflux disease. Hypertension. Acute kidney failure, which recovered, acidosis, anxiety disorder, low back pain, restless leg syndrome, history of bowel resection, history of colostomy, history of tonsillectomy, history of colostomy reversal, history of Clostridium difficile infection. Allergies/Adverse Reactions: Allergies morphine Allergy (Severe, Verified 02/25/17 23:27) Swelling Objective Vital Signs 03/28/18 16:00 03/28/18 20:00 03/29/18 00:00 Temperature 97.5 F L 98.1 F 97.6 F Pulse Rate 108 H 105 H 113 H Respiratory Rate 20 18 18 Blood Pressure 114/56 L 114/53 L 136/60 Pulse Oximetry 95 100 95 03/29/18 04:00 03/29/18 08:00 03/29/18 09:00 Temperature 97.6 F 98.1 F Pulse Rate 106 H 93 H 95 H Respiratory Rate 18 18 20 Blood Pressure 107/52 L 110/55 L 135/59 L Pulse Oximetry 95 95 98 03/29/18 14:18 Temperature 98.2 F Pulse Rate 101 H Respiratory Rate 20 Blood Pressure 111/55 L Pulse Oximetry 97 Intake & Output 03/28/18 03/29/18 03/29/18 18:59 06:59 18:59 Intake Total 340 / 340 Output Total 2100 / 2100 Balance 340 / 340 -2100 / -2100 Weight 62.2 kg Intake: IV 100 / 100 Zosyn 3.375 GM Premix 50 ML @ 100 / 100 100 mls/hr IV.SIG Q6H [facility] Rx#: [id number] Oral 240 / 240 Output: Urine 1050 / 1050 Urine Amount (Catheter) 1050 / 1050 Indwelling Urethral Catheter 1050 / 1050 Other: # Voids 2 Date of Last Bowel Movement 03/28/18 03/29/18 03/27/18 # Bowel Movements 2 3 1 # Incontinent Bowel Movements 1 03/27/18 12:57 Catheterized Urine Urine Culture - Preliminary Delia glabrata Group D Enterococcus 03/27/18 13:13 Blood - Peripheral Aerobic Blood Culture - Preliminary No growth in 2 days 03/27/18 13:13 Blood - Peripheral Anaerobic Blood Culture - Preliminary No growth in 2 days 03/27/18 13:19 Blood - Peripheral Aerobic Blood Culture - Preliminary No growth in 2 days 03/27/18 13:19 Blood - Peripheral Anaerobic Blood Culture - Preliminary No growth in 2 days 03/25/18 00:10 Blood - Peripheral Aerobic Blood Culture - Preliminary No growth in 4 days 03/25/18 00:10 Blood - Peripheral Anaerobic Blood Culture - Preliminary No growth in 4 days 03/25/18 00:15 Blood - Peripheral Aerobic Blood Culture - Preliminary No growth in 4 days 03/25/18 00:15 Blood - Peripheral Anaerobic Blood Culture - Preliminary No growth in 4 days 03/25/18 01:20 Catheterized Urine Urine Culture - Final Staphylococcus simulans Delia glabrata 03/27/18 12:57 Stool Stool Occult Blood (HOMERO) - Final Hemoccult negative Lab - Hematology Results 03/28/18 05:23 WBC 14.4 H RBC 3.55 L Hgb 10.8 L Hct 31.1 L MCV 87.7 MCH 30.4 MCHC 34.6 RDW 15.4 Plt Count 280 MPV 9.1 Prelim Diff (Auto) Slide review pending Neut % (Auto) 74.0 H Lymph % (Auto) 10.2 [place] % (Auto) 14.1 H Eos % (Auto) 1.4 Baso % (Auto) 0.3 Neut # (Auto) 10.6 H Lymph # (Auto) 1.5 [place] # (Auto) 2.0 H Eos # (Auto) 0.2 Baso # (Auto) 0.0 WBC Differential Manual diff final Seg Neuts % (Manual) 60 Band Neuts % (Manual) 19 H Lymphocytes % (Manual) 11 Monocytes % (Manual) 10 H Abs Neuts (Manual) 11.4 H Differential Comment . Dohle Bodies Present H Platelet Estimate Normal Platelet Morphology Normal Lab - Chemistry Results 03/27/18 03/27/18 03/28/18 17:14 21:45 05:23 Sodium 133 L Potassium 3.3 L Chloride 98 Carbon Dioxide 23.6 Anion Gap 11 BUN 28 H Creatinine 0.95 Estimated GFR 56 L POC Glucose 247 H 198 H Random Glucose 174 H Calcium 7.4 L* Prot Corrected Calcium 8.3 L Magnesium 1.7 Total Protein 5.4 L D 03/28/18 03/28/18 03/28/18 08:09 16:43 22:51 Sodium Potassium Chloride Carbon Dioxide Anion Gap BUN Creatinine Estimated GFR POC Glucose 189 H 240 H 186 H Random Glucose Calcium Prot Corrected Calcium Magnesium Total Protein 03/29/18 03/29/18 03/29/18 08:35 09:23 10:07 Sodium Potassium Chloride Carbon Dioxide Anion Gap BUN Creatinine Estimated GFR POC Glucose 58 L 42 L* 150 H Random Glucose Calcium Prot Corrected Calcium Magnesium Total Protein 03/29/18 12:04 Sodium Potassium Chloride Carbon Dioxide Anion Gap BUN Creatinine Estimated GFR POC Glucose 143 H Random Glucose Calcium Prot Corrected Calcium Magnesium Total Protein Imaging: ITS Impressions Venous Doppler Study 03/25/18 00:00 CONCLUSION: The study is negative for bilateral lower extremity deep venous thrombosis. Chest X-Ray 03/25/18 00:01 CONCLUSION: Probable interim but nonacute left hemithorax trauma with healing rib fractures and some associated pleural thickening. Otherwise negative and not significantly changed. Pulmonary Perfusion Imaging 03/25/18 02:20 CONCLUSION: Abnormal pulmonary perfusion, especially the left lung and high probability for pulmonary embolus. Abdomen/Pelvis CT 03/27/18 00:00 CONCLUSION: 1. Abnormal appearance to the colon from the rectum to the descending colon with diffuse thickening of the wall and hypodense appearance to the thickened wall. Is also induration of the fat in the presacral region and possible free fluid. 2. 2 calcified gallstones, distended gallbladder, and dilation of the common bile duct down to the level of the ampulla without calcified stone in the distal common bile. 3. Subsegmental infiltrates in the right lower lung. Physical Exam: PHYSICAL EXAMINATION: GENERAL: No acute distress. More alert. HEENT: Head is atraumatic. Extraocular movements are grossly intact. No icterus. Oropharynx slightly dry mucosa. NECK: Supple, without adenopathy or swelling. LUNGS: Clear breath sounds. HEART: Regular S1, S2, without murmurs, rubs or gallops. ABDOMEN: Bowel sounds present, soft, Mild tenderness at mid abdomen. EXTREMITIES: No clubbing, cyanosis or edema. SKIN: No diffuse rash. NEUROLOGIC: Non focal. PSYCHIATRIC: The patient is calm. Assessment and Plan - Plan IMPRESSION: 1. Leukocytosis, probably secondary to c. difficile. 2. Bacteriuria asymptomatic 3. Diarrhea. Clostridium difficile colitis. Diffuse thickening of the wall of the colon. 4. Pulmonary embolism. 5. Abnormal CT scan showing possible infiltrates or subsegmental infiltrates located in the right lower lung. This could potentially be atelectasis. RECOMMENDATIONS: 1. PO Vancomycin for c. diff x 10 days. 2. Follow the temperature and white blood cell count. No added antibiotic for Urine culture.
--- NOTE | 2018-03-29 18:39 | P.PNIM ---
Subjective Interval history: follow up PE, hypoglycemia, dementia, sepsis with UTI Patient resting in bed. She complains of diffuse, abdominal tenderness. Currently being treated for c-diff. No nausea or vomiting. No abdominal distention. Patient is able to state her correct location, unable to state correct year or name of President. Physical Exam Vital signs: Last Vital Signs Temp 98.9 F 03/29/18 16:20 Pulse 113 H 03/29/18 16:20 Resp 20 03/29/18 16:20 BP 115/55 L 03/29/18 16:20 Pulse Ox 97 03/29/18 16:20 Intake & Output 03/27/18 03/28/18 03/29/18 03/30/18 06:59 06:59 06:59 06:59 Intake Total 490 / 490 400 / 400 340 / 340 Output Total 200 / 200 2100 / 2100 Balance 490 / 490 200 / 200 340 / 340 -2100 / -2100 Weight 63.7 kg 63.7 kg 62.2 kg Narrative: GENERAL: no acute distress, well nourished SKIN: Warm and dry HEAD: Normocephalic, atraumatic. PERRLA. EYES: No scleral icterus. No injection or drainage. NECK: Supple, trachea midline. No JVD or lymphadenopathy. CARDIOVASCULAR: Regular rate and rhythm without murmurs, gallops, or rubs. RESPIRATORY: Breath sounds equal bilaterally. No accessory muscle use. GASTROINTESTINAL: Abdomen soft, tender, nondistended. MUSCULOSKELETAL: No cyanosis, or edema. PSYCHIATRIC: insight and judgement limited Urinary Catheter Management Indwelling Urethral Catheter: Cath placed during this visit: yes, but has since been removed by the nurse Insertion date: 03/25/18 Insertion time: 01:15 Removal date: 03/26/18 Removal time: 13:08 Results Labs CBC & Chem 7: 03/28/18 05:23 03/28/18 05:23 Labs: Microbiology 03/27/18 12:57 Catheterized Urine Urine Culture - Preliminary Delia glabrata Group D Enterococcus 03/27/18 13:13 Blood - Peripheral Aerobic Blood Culture - Preliminary No growth in 2 days 03/27/18 13:13 Blood - Peripheral Anaerobic Blood Culture - Preliminary No growth in 2 days 03/27/18 13:19 Blood - Peripheral Aerobic Blood Culture - Preliminary No growth in 2 days 03/27/18 13:19 Blood - Peripheral Anaerobic Blood Culture - Preliminary No growth in 2 days 03/25/18 00:10 Blood - Peripheral Aerobic Blood Culture - Preliminary No growth in 4 days 03/25/18 00:10 Blood - Peripheral Anaerobic Blood Culture - Preliminary No growth in 4 days 03/25/18 00:15 Blood - Peripheral Aerobic Blood Culture - Preliminary No growth in 4 days 03/25/18 00:15 Blood - Peripheral Anaerobic Blood Culture - Preliminary No growth in 4 days 03/25/18 01:20 Catheterized Urine Urine Culture - Final Staphylococcus simulans Delia glabrata Assessment and Plan Plan 83 y/o female with history of dementia, diabetes and chronic back pain was sent to ER because of altered mental status. History limited due to her dementia, poor historian. Per the ER note the patient was suspected to aspirate yesterday with some changes in her mental status. She was also found to have a low blood sugar for which she received a dose of Glucagon and D10. #. C-diff colitis - reviewed 03/29/18 -ID consulted and following -continue PO Vanc x 10 days -monitor electrolytes closely #. AMS: suspect multifactorial secondary to hypoglycemia, hypoxia with PE, and underlying dementia - reviewed 03/29/18, improving -continue neuro checks -monitor blood glucose -monitor on telemetry #. Pulmonary Embolism: acute - reviewed 03/29/18, unchanged -VQ scan with Abnormal pulmonary perfusion, especially the left lung and high probability for pulmonary embolus. -BLE Doppler U/S negative for DVT -continue on IV heparin drip #. Sepsis with UTI: met sepsis criteria with WBC 18K, tachycardia HR 120s, Tmax 100.7, suspected source-UTI - reviewed 03/29/18 -UA positive for leuks and WBCs -urine culture reviewed -leukocytosis improved, changed antibiotics from ceftin to IV zosyn 03/27. Zosyn d/c'd per ID 03/28/18. -patient with occasional abdominal tenderness on exam, abdominal CT 03/27/19 -> Abnormal appearance to the colon from the rectum to the descending colon with diffuse thickening of the wall and hypodense appearance to the thickened wall. -ID consulted and following -blood culture with NGTD #. Urinary retention with bladder scan showing > 900 ml - reviewed 03/29/18 -continue richter cath -voiding trial prior to discharge #. Diabetes with Hypoglycemia: acute - reviewed 03/29/18, improved -resume Lantus -continue patient's gabapentin for neuropathy -monitor accu-checks and cover with SSI -ADA diet #. Dementia, Inability to Care for Self: acute on chronic - reviewed 03/28/18 -consulted palliative care, appreciate assistance #. Chronic Back Pain: chronic - reviewed 03/28/18, stable -continue patient's extended release dilaudid 12mg po daily (verified on [facility]- [place]) -Consult PT/OT #. Sinus Tachycardia: possibly multifactorial with sepsis and PE - reviewed , improved -EKG with sinus tachycardia -treat infection as above #. Poor Oral Intake: chronic, suspect secondary to dementia - reviewed 03/28/18 -continue patient's megace and remeron #. Hyperlipidemia: chronic -continue patient's statin #. Stage II left side of sacrum and stage III medial aspect of sacrum decubitus ulcer, POA -wound care nurse consulted -specialty bed ordered -apply calazime cream MDM: POA Code: No code, DNR GI ppx: PPI DVT Prophylaxis: on heparin drip Progress Note: Quality VTE Deep Vein Thrombosis/Pulmonary Embolism Present on Admission: No
[2018-03-29] MEDS: Amitriptyline 10 MG Tablet PO SCH (20:14)
[2018-03-29] MEDS ORDERED: Influenza (Quadrivalent) Vaccine 0.5 ML Syringe IM ONE (22:00)
--- NOTE | 2018-03-30 10:30 | P.PN ---
Subjective Interval history: The patient is appearing chronically ill. Says she feels very tired. No nausea or vomiting. Had a bowel movement diarrhea. Says feels a little bit improved. Not eating much has decreased appetite. With some abdominal pain. Physical Exam Vital signs: Vital Signs 03/29/18 14:18 03/29/18 16:20 03/29/18 20:00 Temperature 98.2 F 98.9 F 98.4 F Pulse Rate 101 H 113 H 104 H Respiratory Rate 20 20 17 Blood Pressure 111/55 L 115/55 L 130/63 Pulse Oximetry 97 97 94 L 03/29/18 21:10 03/30/18 00:00 03/30/18 04:00 Temperature 97.1 F L 97.5 F L Pulse Rate 109 H 80 Respiratory Rate 18 16 Blood Pressure 122/56 L 126/59 L Pulse Oximetry 97 97 100 03/30/18 08:00 Temperature 97.6 F Pulse Rate 105 H Respiratory Rate 20 Blood Pressure 120/77 Pulse Oximetry 100 Intake & Output 03/29/18 03/30/18 03/30/18 18:59 06:59 18:59 Intake Total 320 / 320 240 / 240 Output Total 2900 / 2900 850 / 850 Balance -2580 / -2580 -610 / -610 Weight 61.8 kg Intake: Oral 320 / 320 240 / 240 Output: Urine 1850 / 1850 850 / 850 Urine Amount (Catheter) 1050 / 1050 Indwelling Urethral Catheter 1050 / 1050 Other: Date of Last Bowel Movement 03/27/18 03/29/18 # Bowel Movements 1 1 # Incontinent Bowel Movements 1 Narrative: GENERAL: Elderly frail female, appears in no acute distress CARDIOVASCULAR: Regular rate and rhythm without murmurs, gallops, or rubs. RESPIRATORY: Breath sounds equal bilaterally. No accessory muscle use. GASTROINTESTINAL: Abdomen soft, tender, nondistended. MUSCULOSKELETAL: No cyanosis, or edema. PSYCHIATRIC: Poor insight and judgement - Urinary Catheter Management Indwelling Urethral Catheter Cath placed during this visit: yes, but has since been removed by the nurse Reason for continuing: Chronic Urinary Retention Insertion date: 03/25/18 Insertion time: 01:15 Removal date: 03/26/18 Removal time: 13:08 Results - Labs CBC & Chem 7: 03/28/18 05:23 03/28/18 05:23 Laboratory Results - last 24 hr 03/29/18 03/29/18 03/29/18 12:04 14:31 17:21 APTT 36.1 H POC Glucose 143 H 104 03/29/18 03/29/18 03/30/18 19:32 21:02 03:40 APTT 41.8 H 32.1 H D POC Glucose 174 H 03/30/18 08:10 APTT POC Glucose 170 H Microbiology 03/27/18 12:57 Catheterized Urine Urine Culture - Final Delia glabrata Enterococcus faecium VRE 03/27/18 13:13 Blood - Peripheral Aerobic Blood Culture - Preliminary No growth in 2 days 03/27/18 13:13 Blood - Peripheral Anaerobic Blood Culture - Preliminary No growth in 2 days 03/27/18 13:19 Blood - Peripheral Aerobic Blood Culture - Preliminary No growth in 2 days 03/27/18 13:19 Blood - Peripheral Anaerobic Blood Culture - Preliminary No growth in 2 days 03/25/18 00:10 Blood - Peripheral Aerobic Blood Culture - Preliminary No growth in 4 days 03/25/18 00:10 Blood - Peripheral Anaerobic Blood Culture - Preliminary No growth in 4 days 03/25/18 00:15 Blood - Peripheral Aerobic Blood Culture - Preliminary No growth in 4 days 03/25/18 00:15 Blood - Peripheral Anaerobic Blood Culture - Preliminary No growth in 4 days Assessment and Plan - Plan 83 y/o female with history of dementia, diabetes and chronic back pain was sent to ER because of altered mental status. History limited due to her dementia, poor historian. Per the ER note the patient was suspected to aspirate, with some changes in her mental status. She was also found to have a low blood sugar for which she received a dose of Glucagon and D10. C-diff colitis - -ID consulted and following -continue PO Vanc x 10 days -monitor electrolytes closely AMS: suspect multifactorial secondary to hypoglycemia, hypoxia with PE, and underlying dementia - reviewed 03/29/18, improving -continue neuro checks -monitor blood glucose -monitor on telemetry Pulmonary Embolism: acute - reviewed 03/29/18, unchanged -VQ scan with Abnormal pulmonary perfusion, especially the left lung and high probability for pulmonary embolus. -BLE Doppler U/S negative for DVT -continue on IV heparin drip Sepsis with UTI: met sepsis criteria with WBC 18K, tachycardia HR 120s, Tmax 100.7, suspected source-UTI - -UA positive for leuks and WBCs -urine culture reviewed -leukocytosis improved, changed antibiotics from ceftin to IV zosyn 03/27. Zosyn d/c'd per ID 03/28/18. -patient with occasional abdominal tenderness on exam, abdominal CT 03/27/19 -> Abnormal appearance to the colon from the rectum to the descending colon with diffuse thickening of the wall and hypodense appearance to the thickened wall. -ID consulted and following -blood culture with NGTD Urinary retention with bladder scan showing -continue richter cath -voiding trial prior to discharge Diabetes with Hypoglycemia: acute - improving -resume Lantus -continue patient's gabapentin for neuropathy -monitor accu-checks and cover with SSI -ADA diet Dementia, Inability to Care for Self: acute on chronic -consulted palliative care, appreciate assistance Chronic Back Pain: chronic - reviewed 03/28/18, stable -continue patient's extended release dilaudid 12mg po daily (verified on E- [facility]) -Consult PT/OT Sinus Tachycardia: possibly multifactorial with sepsis and PE -EKG with sinus tachycardia -treat infection as above Moderate to severe protein calorie malnutrition. 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
[2018-03-30] MEDS: Gabapentin 100 MG Capsule PO SCH ×3 (10:43→18:59)
[2018-03-30] MEDS: Sodium Chloride 0.9% 2 ML Flush BID IV.FLUSH SCH ×2 (10:45→21:27)
[2018-03-30] MEDS: Insulin NovoLOG Aspart Correctional Sugar Inj SQ SCH ×4 (10:45→20:56)
[2018-03-30] MEDS: Olopatadine 0.1% Opth Drops 5 ML Bottle EACH EYE SCH ×2 (10:45→21:28)
[2018-03-30] MEDS: Tiotropium Bromide 18 MCG/ACT Inhaler INH SCH (12:25)
[2018-03-30] MEDS: Heparin Drip 25,000 UNIT/250 ML BAG IV.CONT PRN (12:25)
--- NOTE | 2018-03-30 17:13 | P.DIET ---
Nutritional Evaluation Type of nutrition evaluation: follow-up Nutrition consult regarding: Diet Evaluation Nutrition screening: [facility] [place] Screening comments: 03/29 MDC for Wound 03/30 MDC for malnutrition Objective - Diagnosis hypoglycemia/respiratory distress/ PE - Objective % IBW: 119 (IBW = 115lb) Body Weight Used for Calculations: Actual Energy Needs - Lower Range (kCal/kg): 25 Energy Needs - Upper Range (kCal/kg): 30 Lower Limit kCal/kg (kCals): 1,555 Upper Limit kCal/kg (kCals): 1,866 Lower Limit Protein Factor (Grams per Kg): 1.2 Upper Limit Protein Factor (Grams per Kg): 1.5 Lower Protein Needs (Protein): 75 Upper Protein Needs (Protein): 93 Dietitian Reviewed in Medical Record: Current diet, Curent medications, Intake & Output, Labs, Medical history Diet Order: cardiac diet Oral Diet Intake Amount: Poor <50% Wound Care Note: L sacrum pressure injury stage II mid sacrum pressure injury stage III Objective Comments: PMH: ANATOLIY, AMS, COPD, dementia, DM, GERD, HTN, HLD Meds: megace, remeron Labs: POC glucose 174 362 Assessment Assessment: MDC for malnutrition received on 03/30. Pt currently cardiac diet w/ Ensure Enlive TID per MD. RD continues to recommend Dennis BID to aid in pressure injury wound healing. RD to recommend Glucerna TID as PO supplement. Continue to monitor PO and supplement intake. Labs reviewed, dietitian following. Recommendations: 1. Pt has 2 wounds on sacrum stage II-III. RD to recommend Dennis BID to aid in wound healing 2. RD to recommend Glucerna TID for PO supplement 3. Monitor PO and supplement intake 4. Dietitian following Dietitian to Monitor: Lab values, Glucose level, Supplement acceptance, Intake & Output, Diet tolerance, PO Intake, Medical course
[2018-03-30] MEDS: Amitriptyline 10 MG Tablet PO SCH (20:57)
[2018-03-31 04:56] LABS: Baso # (Auto) 0.1 th/mm3 (0.0-0.2); Baso % (Auto) 0.7 % (0.0-2.0); Eos # (Auto) 0.4 th/mm3 (0.0-0.4); Eos % (Auto) 2.7 % (0.0-4.0); Hematocrit 34.5 % (35.0-46.0); Hemoglobin 11.5 gm/dL (11.6-15.3); Lymph # (Auto) 2.9 th/mm3 (1.0-4.8); Lymph % (Auto) 20.3 % (9.0-44.0); Mean Corpuscular HGB Conc 33.5 % (32.0-36.0); Mean Corpuscular Hemoglobin 29.7 pg (27.0-34.0); Mean Corpuscular Volume 88.9 fL (80.0-100.0); Mean Platelet Volume 8.3 fL (7.0-11.0); Mono # (Auto) 1.1 th/mm3 (0.0-0.9); Neut # (Auto) 9.6 th/mm3 (1.8-7.7); Neut % (Auto) 68.3 % (16.0-70.0); Platelet Count 390 th/mm3 (150-450); Red Blood Count 3.88 mil/mm3 (4.00-5.30); Red Cell Distribution Width 15.9 % (11.6-17.2); White Blood Count 14.1 th/mm3 (4.0-11.0)
[2018-03-31 05:18] LABS: Anion Gap 9 meq/L (5-15); Blood Urea Nitrogen 8 mg/dL (7-18); Calcium 7.3 mg/dL (8.5-10.1); Carbon Dioxide 24.9 meq/L (21.0-32.0); Chloride 102 meq/L (98-107); Glomerular Filtration Rate Greater Than 89 mL/min (>89); Glucose,Random 209 mg/dL (74-106); Sodium 136 meq/L (136-145)
[2018-03-31 05:27] LABS: Potassium 2.9 meq/L (3.5-5.1)
[2018-03-31 05:48] LABS: Calcium-Albumin Corrected 8.3 mg/dL (8.5-10.1); Total Protein 5.2 g/dL (6.4-8.2)
[2018-03-31] MEDS ORDERED: Potassium Chloride 25 MEQ Effervescent Tablet PO ONE (06:18)
[2018-03-31 08:10] LABS: Eosinophils 1 % (0-4); Lymphocytes 18 % (9-44); Metamyelocytes 3 % (0-1); Monocytes 7 % (0-8); Myelocytes 2 % (0-0); Platelet Estimate Normal (Normal); Platelet Morphology Normal (Normal); Promyelocyte 1 % (0-0); RBC Morphology Normal (Normal)
[2018-03-31] MEDS: Heparin Drip 25,000 UNIT/250 ML BAG IV.CONT PRN (09:12)
[2018-03-31] MEDS: Insulin NovoLOG Aspart Correctional Sugar Inj SQ SCH ×4 (09:15→22:10)
[2018-03-31] MEDS: Gabapentin 100 MG Capsule PO SCH ×3 (09:16→17:56)
[2018-03-31] MEDS: Sodium Chloride 0.9% 2 ML Flush BID IV.FLUSH SCH ×2 (09:17→22:06)
[2018-03-31] MEDS: Tiotropium Bromide 18 MCG/ACT Inhaler INH SCH (09:20)
[2018-03-31] MEDS: Olopatadine 0.1% Opth Drops 5 ML Bottle EACH EYE SCH ×2 (09:20→22:06)
--- NOTE | 2018-03-31 10:12 | P.PN ---
Subjective Interval history: Still with abdominal pain, decreased appetite not able to eat much, still with diarrhea. No fever or chills. No nausea or vomiting. Physical Exam Vital signs: Vital Signs 03/30/18 12:00 03/30/18 16:00 03/30/18 20:00 Temperature 97.3 F L 97.9 F 98.3 F Pulse Rate 111 H 107 H 107 H Respiratory Rate 18 18 17 Blood Pressure 125/60 121/56 L 126/55 L Pulse Oximetry 98 97 95 03/30/18 20:31 03/31/18 00:00 03/31/18 04:00 Temperature 97.3 F L 97.3 F L Pulse Rate 101 H 102 H Respiratory Rate 18 19 Blood Pressure 111/55 L 136/56 L Pulse Oximetry 98 92 L 94 L 03/31/18 08:00 03/31/18 08:50 Temperature 97.8 F Pulse Rate 106 H Respiratory Rate 17 Blood Pressure 110/55 L Pulse Oximetry 91 L 97 Intake & Output 03/30/18 03/31/18 03/31/18 18:59 06:59 18:59 Intake Total 321 / 321 169 / 169 Output Total 400 / 400 350 / 350 Balance -400 / -400 -29 / -29 169 / 169 Weight 59.1 kg Intake: IV 169 / 169 Heparin/D5W 25,000 U/250 mL 25, / 169 / 169 000 unit In 250 ml @ Per Protocol IV.CONT TITRATE PRN Rx #:[id number] Oral 240 / 240 Output: Urine 350 / 350 Urine Amount (Catheter) 400 / 400 Indwelling Urethral Catheter 400 / 400 Other: Date of Last Bowel Movement 03/30/18 # Bowel Movements 5 # Incontinent Bowel Movements 4 Narrative: GENERAL: Elderly frail female, appears in no acute distress CARDIOVASCULAR: Regular rate and rhythm without murmurs, gallops, or rubs. RESPIRATORY: Breath sounds equal bilaterally. No accessory muscle use. GASTROINTESTINAL: Abdomen soft, tender, nondistended. MUSCULOSKELETAL: No cyanosis, or edema. PSYCHIATRIC: Poor insight and judgement - Urinary Catheter Management Indwelling Urethral Catheter Cath placed during this visit: yes, but has since been removed by the nurse Reason for continuing: Chronic Urinary Retention Insertion date: 03/25/18 Insertion time: 01:15 Removal date: 03/26/18 Removal time: 13:08 Results - Labs CBC & Chem 7: 03/31/18 04:23 03/31/18 04:23 Laboratory Results - last 24 hr 03/30/18 03/30/18 03/30/18 09:51 11:42 12:00 WBC RBC Hgb Hct MCV MCH MCHC RDW Plt Count MPV Prelim Diff (Auto) Neut % (Auto) Lymph % (Auto) [place]roy[place] % (Auto) Eos % (Auto) Baso % (Auto) Neut # (Auto) Lymph # (Auto) [place] # (Auto) Eos # (Auto) Baso # (Auto) WBC Differential Seg Neuts % (Manual) Band Neuts % (Manual) Lymphocytes % (Manual) Monocytes % (Manual) Eosinophils % (Manual) Basophils % (Manual) Metamyelocytes % (Man) Myelocytes % (Man) Promyelocytes % (Man) Abs Neuts (Manual) Differential Comment Platelet Estimate Platelet Morphology RBC Morphology APTT 31.4 Sodium Potassium Chloride Carbon Dioxide Anion Gap BUN Creatinine Estimated GFR POC Glucose 362 H Random Glucose Calcium Prot Corrected Calcium Total Protein Prealbumin 5 L 03/30/18 03/30/18 03/30/18 17:45 18:52 20:55 WBC RBC Hgb Hct MCV MCH MCHC RDW Plt Count MPV Prelim Diff (Auto) Neut % (Auto) Lymph % (Auto) [place]roy[place] % (Auto) Eos % (Auto) Baso % (Auto) Neut # (Auto) Lymph # (Auto) [place] # (Auto) Eos # (Auto) Baso # (Auto) WBC Differential Seg Neuts % (Manual) Band Neuts % (Manual) Lymphocytes % (Manual) Monocytes % (Manual) Eosinophils % (Manual) Basophils % (Manual) Metamyelocytes % (Man) Myelocytes % (Man) Promyelocytes % (Man) Abs Neuts (Manual) Differential Comment Platelet Estimate Platelet Morphology RBC Morphology APTT 29.8 Sodium Potassium Chloride Carbon Dioxide Anion Gap BUN Creatinine Estimated GFR POC Glucose 190 H 284 H Random Glucose Calcium Prot Corrected Calcium Total Protein Prealbumin 03/31/18 03/31/18 03/31/18 04:23 04:23 05:54 WBC 14.1 H RBC 3.88 L Hgb 11.5 L Hct 34.5 L MCV 88.9 MCH 29.7 MCHC 33.5 RDW 15.9 Plt Count 390 D MPV 8.3 Prelim Diff (Auto) Slide review pending Neut % (Auto) 68.3 Lymph % (Auto) 20.3 Arroyo % (Auto) 8.0 Eos % (Auto) 2.7 Baso % (Auto) 0.7 Neut # (Auto) 9.6 H Lymph # (Auto) 2.9 [place] # (Auto) 1.1 H Eos # (Auto) 0.4 Baso # (Auto) 0.1 WBC Differential Manual diff final Seg Neuts % (Manual) 55 Band Neuts % (Manual) 12 H Lymphocytes % (Manual) 18 Monocytes % (Manual) 7 Eosinophils % (Manual) 1 Basophils % (Manual) 1 Metamyelocytes % (Man) 3 H Myelocytes % (Man) 2 H Promyelocytes % (Man) 1 H Abs Neuts (Manual) 10.3 H Differential Comment . Platelet Estimate Normal Platelet Morphology Normal RBC Morphology Normal APTT 108.0 H* D Sodium 136 Potassium 2.9 L* Chloride 102 Carbon Dioxide 24.9 Anion Gap 9 BUN 8 Creatinine 0.61 Estimated GFR Greater than 89 POC Glucose Random Glucose 209 H Calcium 7.3 L* Prot Corrected Calcium 8.3 L Total Protein 5.2 L Prealbumin 03/31/18 03/31/18 08:19 08:23 WBC RBC Hgb Hct MCV MCH MCHC RDW Plt Count MPV Prelim Diff (Auto) Neut % (Auto) Lymph % (Auto) [place] % (Auto) Eos % (Auto) Baso % (Auto) Neut # (Auto) Lymph # (Auto) [place] # (Auto) Eos # (Auto) Baso # (Auto) WBC Differential Seg Neuts % (Manual) Band Neuts % (Manual) Lymphocytes % (Manual) Monocytes % (Manual) Eosinophils % (Manual) Basophils % (Manual) Metamyelocytes % (Man) Myelocytes % (Man) Promyelocytes % (Man) Abs Neuts (Manual) Differential Comment Platelet Estimate Platelet Morphology RBC Morphology APTT 91.9 H* Sodium Potassium Chloride Carbon Dioxide Anion Gap BUN Creatinine Estimated GFR POC Glucose 212 H Random Glucose Calcium Prot Corrected Calcium Total Protein Prealbumin Microbiology 03/27/18 13:13 Blood - Peripheral Aerobic Blood Culture - Preliminary No growth in 3 days 03/27/18 13:13 Blood - Peripheral Anaerobic Blood Culture - Preliminary No growth in 3 days 03/27/18 13:19 Blood - Peripheral Aerobic Blood Culture - Preliminary No growth in 3 days 03/27/18 13:19 Blood - Peripheral Anaerobic Blood Culture - Preliminary No growth in 3 days 03/25/18 00:10 Blood - Peripheral Aerobic Blood Culture - Final No growth in 5 days 03/25/18 00:10 Blood - Peripheral Anaerobic Blood Culture - Final No growth in 5 days 03/25/18 00:15 Blood - Peripheral Aerobic Blood Culture - Final No growth in 5 days 03/25/18 00:15 Blood - Peripheral Anaerobic Blood Culture - Final No growth in 5 days 03/27/18 12:57 Catheterized Urine Urine Culture - Final Delia glabrata Enterococcus faecium VRE Assessment and Plan - Plan 83 y/o female with history of dementia, diabetes and chronic back pain was sent to ER because of altered mental status. History limited due to her dementia, poor historian. Per the ER note the patient was suspected to aspirate, with some changes in her mental status. She was also found to have a low blood sugar for which she received a dose of Glucagon and D10. C-diff colitis - -ID consulted and following -continue PO Vanc x 10 days -monitor electrolytes closely AMS: suspect multifactorial secondary to hypoglycemia, hypoxia with PE, and underlying dementia - reviewed 03/29/18, improving -continue neuro checks -monitor blood glucose -monitor on telemetry Pulmonary Embolism: acute - reviewed 03/29/18, unchanged -VQ scan with Abnormal pulmonary perfusion, especially the left lung and high probability for pulmonary embolus. -BLE Doppler U/S negative for DVT -continue on IV heparin drip Sepsis with UTI: met sepsis criteria with WBC 18K, tachycardia HR 120s, Tmax 100.7, suspected source-UTI - -UA positive for leuks and WBCs -urine culture reviewed -leukocytosis improved, changed antibiotics from ceftin to IV zosyn 03/27. Zosyn d/c'd per ID 03/28/18. -patient with occasional abdominal tenderness on exam, abdominal CT 03/27/19 -> Abnormal appearance to the colon from the rectum to the descending colon with diffuse thickening of the wall and hypodense appearance to the thickened wall. -ID consulted and following -blood culture with NGTD Urinary retention with bladder scan showing -continue richter cath -voiding trial prior to discharge Diabetes with Hypoglycemia: acute - improving -resume Lantus -continue patient's gabapentin for neuropathy -monitor accu-checks and cover with SSI -ADA diet Dementia, Inability to Care for Self: acute on chronic -consulted palliative care, appreciate assistance Chronic Back Pain: chronic - reviewed 03/28/18, stable -continue patient's extended release dilaudid 12mg po daily (verified on E- [facility]) -Consult PT/OT Sinus Tachycardia: possibly multifactorial with sepsis and PE -EKG with sinus tachycardia -treat infection as above Moderate to severe protein calorie malnutrition. 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 Also not eating much. Discharge when able to eat, and when stools are forming.
[2018-03-31] MEDS: Amitriptyline 10 MG Tablet PO SCH (22:07)
[2018-04-01 05:57] LABS: Baso # (Auto) 0.2 th/mm3 (0.0-0.2); Baso % (Auto) 0.9 % (0.0-2.0); Eos # (Auto) 0.4 th/mm3 (0.0-0.4); Eos % (Auto) 2.1 % (0.0-4.0); Hematocrit 38.4 % (35.0-46.0); Hemoglobin 12.9 gm/dL (11.6-15.3); Lymph # (Auto) 4.1 th/mm3 (1.0-4.8); Lymph % (Auto) 19.8 % (9.0-44.0); Mean Corpuscular HGB Conc 33.6 % (32.0-36.0); Mean Corpuscular Hemoglobin 30.1 pg (27.0-34.0); Mean Corpuscular Volume 89.5 fL (80.0-100.0); Mean Platelet Volume 8.6 fL (7.0-11.0); Mono # (Auto) 1.5 th/mm3 (0.0-0.9); Neut # (Auto) 14.7 th/mm3 (1.8-7.7); Neut % (Auto) 70.2 % (16.0-70.0); Platelet Count 382 th/mm3 (150-450); Red Blood Count 4.28 mil/mm3 (4.00-5.30)
[2018-04-01 06:21] LABS: Anion Gap 10 meq/L (5-15); Blood Urea Nitrogen 6 mg/dL (7-18); Calcium 7.4 mg/dL (8.5-10.1); Chloride 101 meq/L (98-107); Glomerular Filtration Rate Greater Than 89 mL/min (>89); Glucose,Random 162 mg/dL (74-106); Potassium 3.5 meq/L (3.5-5.1); Sodium 135 meq/L (136-145)
[2018-04-01 06:37] LABS: Calcium-Albumin Corrected 8.5 mg/dL (8.5-10.1); Total Protein 5.1 g/dL (6.4-8.2)
[2018-04-01 08:05] LABS: Eosinophils 4 % (0-4); Lymphocytes 15 % (9-44); Metamyelocytes 12 % (0-1); Monocytes 7 % (0-8); Myelocytes 3 % (0-0); Platelet Estimate Normal (Normal); Platelet Morphology Normal (Normal); RBC Morphology Normal (Normal); Toxic Granulation 2+
[2018-04-01] MEDS: Gabapentin 100 MG Capsule PO SCH ×3 (10:03→18:09)
[2018-04-01] MEDS: Olopatadine 0.1% Opth Drops 5 ML Bottle EACH EYE SCH ×2 (10:05→23:37)
[2018-04-01] MEDS: Tiotropium Bromide 18 MCG/ACT Inhaler INH SCH (10:05)
[2018-04-01] MEDS: Sodium Chloride 0.9% 2 ML Flush BID IV.FLUSH SCH ×2 (10:07→23:36)
[2018-04-01] MEDS: Insulin NovoLOG Aspart Correctional Sugar Inj SQ SCH ×4 (10:24→23:46)
--- NOTE | 2018-04-01 16:00 | P.PN ---
Subjective Interval history: Patient appears weak. Not eating much. Change diet per recommendations of dietitian to vent and Glucerna. Patient still with diarrhea, will add Lactinex. Still with nausea no vomiting. With abdominal cramps. Physical Exam Vital signs: Vital Signs 03/31/18 16:00 03/31/18 19:32 03/31/18 20:00 Temperature 97.2 F L 98.1 F Pulse Rate 114 H 108 H Respiratory Rate 17 18 Blood Pressure 122/57 L 119/51 L Pulse Oximetry 95 94 L 92 L 04/01/18 00:00 04/01/18 04:00 04/01/18 08:00 Temperature 97.8 F 97.6 F 97.1 F L Pulse Rate 107 H 99 H 99 H Respiratory Rate 18 18 18 Blood Pressure 121/60 114/59 L 129/51 L Pulse Oximetry 94 L 97 97 04/01/18 12:00 Temperature 97.9 F Pulse Rate 98 H Respiratory Rate 17 Blood Pressure 121/79 Pulse Oximetry 97 Intake & Output 03/31/18 04/01/18 04/01/18 18:59 06:59 18:59 Intake Total 169 / 169 120 / 120 Output Total 300 / 300 Balance 169 / 169 -180 / -180 Weight 60.5 kg Intake: IV 169 / 169 Heparin/D5W 25,000 U/250 mL 25, 169 / 169 000 unit In 250 ml @ Per Protocol IV.CONT TITRATE PRN Rx #:[id number] Oral 120 / 120 Output: Urine Amount (Catheter) 300 / 300 Indwelling Urethral Catheter 300 / 300 Other: Date of Last Bowel Movement 03/31/18 # Bowel Movements 1 - Urinary Catheter Management Indwelling Urethral Catheter Cath placed during this visit: yes, but has since been removed by the nurse Reason for continuing: Chronic Urinary Retention Insertion date: 03/25/18 Insertion time: 01:15 Removal date: 03/26/18 Removal time: 13:08 Results - Labs CBC & Chem 7: 04/01/18 04:35 04/01/18 04:35 Laboratory Results - last 24 hr 03/31/18 03/31/18 03/31/18 17:21 20:04 22:10 WBC RBC Hgb Hct MCV MCH MCHC RDW Plt Count MPV Prelim Diff (Auto) Neut % (Auto) Lymph % (Auto) Fisher % (Auto) Eos % (Auto) Baso % (Auto) Neut # (Auto) Lymph # (Auto) Fisher # (Auto) Eos # (Auto) Baso # (Auto) WBC Differential Seg Neuts % (Manual) Band Neuts % (Manual) Lymphocytes % (Manual) Monocytes % (Manual) Eosinophils % (Manual) Metamyelocytes % (Man) Myelocytes % (Man) Abs Neuts (Manual) Differential Comment Toxic Granulation Platelet Estimate Platelet Morphology RBC Morphology APTT 46.0 H Sodium Potassium Chloride Carbon Dioxide Anion Gap BUN Creatinine Estimated GFR POC Glucose 190 H 215 H Random Glucose Calcium Prot Corrected Calcium Total Protein 04/01/18 04/01/18 04/01/18 04:35 04:35 04:35 WBC 21.0 H RBC 4.28 Hgb 12.9 Hct 38.4 MCV 89.5 MCH 30.1 MCHC 33.6 RDW 16.0 Plt Count 382 MPV 8.6 Prelim Diff (Auto) Slide review pending Neut % (Auto) 70.2 H Lymph % (Auto) 19.8 Fisher % (Auto) 7.0 Eos % (Auto) 2.1 Baso % (Auto) 0.9 Neut # (Auto) 14.7 H Lymph # (Auto) 4.1 Fisher # (Auto) 1.5 H Eos # (Auto) 0.4 Baso # (Auto) 0.2 WBC Differential Manual diff final Seg Neuts % (Manual) 39 Band Neuts % (Manual) 20 H Lymphocytes % (Manual) 15 Monocytes % (Manual) 7 Eosinophils % (Manual) 4 Metamyelocytes % (Man) 12 H Myelocytes % (Man) 3 H Abs Neuts (Manual) 15.5 H Differential Comment . Toxic Granulation 2+ H Platelet Estimate Normal Platelet Morphology Normal RBC Morphology Normal APTT 33.1 H D Sodium 135 L Potassium 3.5 Chloride 101 Carbon Dioxide 24.0 Anion Gap 10 BUN 6 L Creatinine 0.61 Estimated GFR Greater than 89 POC Glucose Random Glucose 162 H Calcium 7.4 L* Prot Corrected Calcium 8.5 Total Protein 5.1 L 04/01/18 04/01/18 10:02 12:32 WBC RBC Hgb Hct MCV MCH MCHC RDW Plt Count MPV Prelim Diff (Auto) Neut % (Auto) Lymph % (Auto) Fisher % (Auto) Eos % (Auto) Baso % (Auto) Neut # (Auto) Lymph # (Auto) Fisher # (Auto) Eos # (Auto) Baso # (Auto) WBC Differential Seg Neuts % (Manual) Band Neuts % (Manual) Lymphocytes % (Manual) Monocytes % (Manual) Eosinophils % (Manual) Metamyelocytes % (Man) Myelocytes % (Man) Abs Neuts (Manual) Differential Comment Toxic Granulation Platelet Estimate Platelet Morphology RBC Morphology APTT Sodium Potassium Chloride Carbon Dioxide Anion Gap BUN Creatinine Estimated GFR POC Glucose 190 H 183 H Random Glucose Calcium Prot Corrected Calcium Total Protein Microbiology 03/27/18 13:13 Blood - Peripheral Aerobic Blood Culture - Final No growth in 5 days 03/27/18 13:13 Blood - Peripheral Anaerobic Blood Culture - Final No growth in 5 days 03/27/18 13:19 Blood - Peripheral Aerobic Blood Culture - Final No growth in 5 days 03/27/18 13:19 Blood - Peripheral Anaerobic Blood Culture - Final No growth in 5 days Assessment and Plan - Plan 83 y/o female with history of dementia, diabetes and chronic back pain was sent to ER because of altered mental status. History limited due to her dementia, poor historian. Per the ER note the patient was suspected to aspirate, with some changes in her mental status. She was also found to have a low blood sugar for which she received a dose of Glucagon and D10. C-diff colitis - -ID consulted and following -continue PO Vanc x 10 days -monitor electrolytes closely AMS: Improved suspect multifactorial secondary to hypoglycemia, hypoxia with PE , and underlying dementia - reviewed 03/29/18, improving -continue neuro checks -monitor blood glucose -monitor on telemetry Pulmonary Embolism: acute - reviewed 03/29/18, unchanged -VQ scan with Abnormal pulmonary perfusion, especially the left lung and high probability for pulmonary embolus. -BLE Doppler U/S negative for DVT -continue on IV heparin drip Sepsis with UTI resolving: met sepsis criteria with WBC 18K, tachycardia HR 120s , Tmax 100.7, suspected source-UTI - -UA positive for leuks and WBCs -urine culture reviewed -leukocytosis improved, changed antibiotics from ceftin to IV zosyn 03/27. Zosyn d/c'd per ID 03/28/18. -patient with occasional abdominal tenderness on exam, abdominal CT 03/27/19 -> Abnormal appearance to the colon from the rectum to the descending colon with diffuse thickening of the wall and hypodense appearance to the thickened wall. -ID consulted and following -blood culture with NGTD Urinary retention with bladder scan showing -continue richter cath -voiding trial prior to discharge Diabetes with Hypoglycemia: acute - improving -resume Lantus -continue patient's gabapentin for neuropathy -monitor accu-checks and cover with SSI -ADA diet Dementia, Inability to Care for Self: acute on chronic -consulted palliative care, appreciate assistance Chronic Back Pain: chronic - reviewed 03/28/18, stable -continue patient's extended release dilaudid 12mg po daily (verified on E- [facility]) -Consult PT/OT Sinus Tachycardia: possibly multifactorial with sepsis and PE -EKG with sinus tachycardia -treat infection as above Moderate to severe protein calorie malnutrition. 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 Glucerna 3 times daily and Dennis twice daily -consult patient assessment coordinator Hyperlipidemia: chronic -continue patient's statin Stage II left side of sacrum and stage III medial aspect of sacrum decubitus ulcer, POA -wound care nurse consulted -specialty bed ordered -apply calazime cream MDM: POA Code: No code, DNR GI ppx: PPI DVT Prophylaxis: on heparin drip DC plan: Pending improvement and clearance by consultants Patient still with diarrhea and abdominal pain. Also not eating much. Discharge when able to eat, and when stools are forming.
[2018-04-01] MEDS: Lactobacillus Acidophilus/L. Spores Tablet PO SCH (18:10)
[2018-04-01] MEDS: Heparin Drip 25,000 UNIT/250 ML BAG IV.CONT PRN (18:10)
[2018-04-01] MEDS: Amitriptyline 10 MG Tablet PO SCH (23:36)
[2018-04-02 07:58] LABS: Baso # (Auto) 0.2 th/mm3 (0.0-0.2); Baso % (Auto) 0.9 % (0.0-2.0); Eos # (Auto) 0.3 th/mm3 (0.0-0.4); Eos % (Auto) 1.9 % (0.0-4.0); Hemoglobin 12.2 gm/dL (11.6-15.3); Lymph # (Auto) 2.9 th/mm3 (1.0-4.8); Lymph % (Auto) 17.1 % (9.0-44.0); Mean Corpuscular HGB Conc 32.9 % (32.0-36.0); Mean Platelet Volume 8.1 fL (7.0-11.0); Mono % (Auto) 5.7 % (0.0-8.0); Neut # (Auto) 12.6 th/mm3 (1.8-7.7); Neut % (Auto) 74.4 % (16.0-70.0); Platelet Count 478 th/mm3 (150-450); Red Blood Count 4.07 mil/mm3 (4.00-5.30); Red Cell Distribution Width 15.7 % (11.6-17.2)
[2018-04-02 08:27] LABS: Anion Gap 11 meq/L (5-15); Blood Urea Nitrogen 6 mg/dL (7-18); Calcium 7.7 mg/dL (8.5-10.1); Carbon Dioxide 23.6 meq/L (21.0-32.0); Chloride 102 meq/L (98-107); Glomerular Filtration Rate Greater Than 89 mL/min (>89); Glucose,Random 142 mg/dL (74-106); Potassium 3.4 meq/L (3.5-5.1); Sodium 137 meq/L (136-145)
[2018-04-02 09:51] LABS: Eosinophils 1 % (0-4); Lymphocytes 23 % (9-44); Metamyelocytes 3 % (0-1); Monocytes 10 % (0-8); Myelocytes 8 % (0-0); Promyelocyte 3 % (0-0)
[2018-04-02 09:52] LABS: Platelet Morphology Normal (Normal); Toxic Granulation 2+
[2018-04-02] MEDS: Gabapentin 100 MG Capsule PO SCH ×3 (10:00→17:34)
[2018-04-02] MEDS: Lactobacillus Acidophilus/L. Spores Tablet PO SCH ×3 (10:01→17:34)
[2018-04-02] MEDS: Tiotropium Bromide 18 MCG/ACT Inhaler INH SCH (10:06)
[2018-04-02] MEDS: Olopatadine 0.1% Opth Drops 5 ML Bottle EACH EYE SCH ×2 (10:07→21:56)
[2018-04-02] MEDS: Sodium Chloride 0.9% 2 ML Flush BID IV.FLUSH SCH ×2 (10:08→21:56)
[2018-04-02] MEDS: Insulin NovoLOG Aspart Correctional Sugar Inj SQ SCH ×4 (10:11→21:58)
[2018-04-02] MEDS: Heparin Drip 25,000 UNIT/250 ML BAG IV.CONT PRN (10:43)
--- NOTE | 2018-04-02 15:00 | P.PN ---
Subjective Interval history: Seen earlier today. Still with diarrhea and abd cramps. Able to eat better. No feever or chills. Some nausea no vomiting. Richter removed patient was unable to urinate bladder scan with more than 400 cc , had straight cath . Will start gently IVF Monitor urine OP and do straight cath. If unable to urinate will consider urology consult and richter Physical Exam Vital signs: Vital Signs 04/01/18 16:00 04/01/18 20:00 04/02/18 00:00 Temperature 97.9 F 97.2 F L 97.8 F Pulse Rate 101 H 104 H 102 H Respiratory Rate 19 20 20 Blood Pressure 113/56 L 123/62 130/65 Pulse Oximetry 97 97 98 04/02/18 04:00 04/02/18 08:00 04/02/18 12:00 Temperature 98 F 97.9 F 98.0 F Pulse Rate 95 H 96 H 104 H Respiratory Rate 18 16 17 Blood Pressure 129/60 122/56 L 126/58 L Pulse Oximetry 96 95 97 04/02/18 12:25 Temperature Pulse Rate Respiratory Rate Blood Pressure Pulse Oximetry 96 Intake & Output 04/01/18 04/02/18 04/02/18 18:59 06:59 18:59 Intake Total 600 / 600 250 / 250 Output Total 600 / 600 450 / 450 Balance 0 / 0 -200 / -200 Weight 57.6 kg Intake: IV 250 / 250 Heparin/D5W 25,000 U/250 mL 25, 250 / 250 000 unit In 250 ml @ Per Protocol IV.CONT TITRATE PRN Rx #:[id number] Oral 600 / 600 Output: Urine 450 / 450 Urine Amount (Catheter) 600 / 600 Indwelling Urethral Catheter 600 / 600 Other: Date of Last Bowel Movement 04/01/18 04/02/18 # Incontinent Bowel Movements 1 Narrative: GENERAL: Elderly frail female, appears in no acute distress CARDIOVASCULAR: Regular rate and rhythm without murmurs, gallops, or rubs. RESPIRATORY: Breath sounds equal bilaterally. No accessory muscle use. GASTROINTESTINAL: Abdomen soft, tender, nondistended. MUSCULOSKELETAL: No cyanosis, or edema. PSYCHIATRIC: Poor insight and judgement - Urinary Catheter Management Indwelling Urethral Catheter Cath placed during this visit: yes, but has since been removed by the nurse Reason for continuing: Chronic Urinary Retention Insertion date: 03/25/18 Insertion time: 01:15 Removal date: 04/01/18 Removal time: 18:00 Straight Cath placed during this visit: yes Reason for continuing: Not indwelling catheter Insertion date: 04/02/18 Insertion time: 06:00 Results - Labs CBC & Chem 7: 04/02/18 07:11 04/02/18 07:11 Laboratory Results - last 24 hr 04/01/18 04/01/18 04/01/18 17:00 17:18 23:36 WBC RBC Hgb Hct MCV MCH MCHC RDW Plt Count MPV Prelim Diff (Auto) Neut % (Auto) Lymph % (Auto) [place] % (Auto) Eos % (Auto) Baso % (Auto) Neut # (Auto) Lymph # (Auto) [place] # (Auto) Eos # (Auto) Baso # (Auto) WBC Differential Seg Neuts % (Manual) Band Neuts % (Manual) Lymphocytes % (Manual) Monocytes % (Manual) Eosinophils % (Manual) Metamyelocytes % (Man) Myelocytes % (Man) Promyelocytes % (Man) Abs Neuts (Manual) Differential Comment Toxic Granulation Platelet Estimate Platelet Morphology APTT 24.2 D Sodium Potassium Chloride Carbon Dioxide Anion Gap BUN Creatinine Estimated GFR POC Glucose 130 H 170 H Random Glucose Calcium Prealbumin 04/02/18 04/02/18 04/02/18 00:19 07:11 07:11 WBC 17.0 H RBC 4.07 Hgb 12.2 Hct 37.0 MCV 91.0 MCH 30.0 MCHC 32.9 RDW 15.7 Plt Count 478 H MPV 8.1 Prelim Diff (Auto) Slide review pending Neut % (Auto) 74.4 H Lymph % (Auto) 17.1 [place] % (Auto) 5.7 Eos % (Auto) 1.9 Baso % (Auto) 0.9 Neut # (Auto) 12.6 H Lymph # (Auto) 2.9 [place] # (Auto) 1.0 H Eos # (Auto) 0.3 Baso # (Auto) 0.2 WBC Differential Manual diff final Seg Neuts % (Manual) 43 Band Neuts % (Manual) 9 H Lymphocytes % (Manual) 23 Monocytes % (Manual) 10 H Eosinophils % (Manual) 1 Metamyelocytes % (Man) 3 H Myelocytes % (Man) 8 H Promyelocytes % (Man) 3 H Abs Neuts (Manual) 11.2 H Differential Comment . Toxic Granulation 2+ H Platelet Estimate High H Platelet Morphology Normal APTT 46.9 H D Sodium 137 Potassium 3.4 L Chloride 102 Carbon Dioxide 23.6 Anion Gap 11 BUN 6 L Creatinine 0.47 L Estimated GFR Greater than 89 POC Glucose Random Glucose 142 H Calcium 7.7 L Prealbumin 04/02/18 04/02/18 04/02/18 07:11 07:11 07:54 WBC RBC Hgb Hct MCV MCH MCHC RDW Plt Count MPV Prelim Diff (Auto) Neut % (Auto) Lymph % (Auto) [place] % (Auto) Eos % (Auto) Baso % (Auto) Neut # (Auto) Lymph # (Auto) [place] # (Auto) Eos # (Auto) Baso # (Auto) WBC Differential Seg Neuts % (Manual) Band Neuts % (Manual) Lymphocytes % (Manual) Monocytes % (Manual) Eosinophils % (Manual) Metamyelocytes % (Man) Myelocytes % (Man) Promyelocytes % (Man) Abs Neuts (Manual) Differential Comment Toxic Granulation Platelet Estimate Platelet Morphology APTT 42.5 H Sodium Potassium Chloride Carbon Dioxide Anion Gap BUN Creatinine Estimated GFR POC Glucose 141 H Random Glucose Calcium Prealbumin 6 L 04/02/18 11:36 WBC RBC Hgb Hct MCV MCH MCHC RDW Plt Count MPV Prelim Diff (Auto) Neut % (Auto) Lymph % (Auto) [place] % (Auto) Eos % (Auto) Baso % (Auto) Neut # (Auto) Lymph # (Auto) [place] # (Auto) Eos # (Auto) Baso # (Auto) WBC Differential Seg Neuts % (Manual) Band Neuts % (Manual) Lymphocytes % (Manual) Monocytes % (Manual) Eosinophils % (Manual) Metamyelocytes % (Man) Myelocytes % (Man) Promyelocytes % (Man) Abs Neuts (Manual) Differential Comment Toxic Granulation Platelet Estimate Platelet Morphology APTT Sodium Potassium Chloride Carbon Dioxide Anion Gap BUN Creatinine Estimated GFR POC Glucose 173 H Random Glucose Calcium Prealbumin Microbiology 03/27/18 13:13 Blood - Peripheral Aerobic Blood Culture - Final No growth in 5 days 03/27/18 13:13 Blood - Peripheral Anaerobic Blood Culture - Final No growth in 5 days 03/27/18 13:19 Blood - Peripheral Aerobic Blood Culture - Final No growth in 5 days 03/27/18 13:19 Blood - Peripheral Anaerobic Blood Culture - Final No growth in 5 days Assessment and Plan - Plan 83 y/o female with history of dementia, diabetes and chronic back pain was sent to ER because of altered mental status. History limited due to her dementia, poor historian. Per the ER note the patient was suspected to aspirate, with some changes in her mental status. She was also found to have a low blood sugar for which she received a dose of Glucagon and D10. C-diff colitis - -ID consulted and following -continue PO Vanc x 10 days -monitor electrolytes closely AMS: Improved suspect multifactorial secondary to hypoglycemia, hypoxia with PE , and underlying dementia - reviewed 03/29/18, improving -continue neuro checks -monitor blood glucose -monitor on telemetry Pulmonary Embolism: acute - reviewed 03/29/18, unchanged -VQ scan with Abnormal pulmonary perfusion, especially the left lung and high probability for pulmonary embolus. -BLE Doppler U/S negative for DVT -continue on IV heparin drip Sepsis with UTI resolving: met sepsis criteria with WBC 18K, tachycardia HR 120s , Tmax 100.7, suspected source-UTI - -UA positive for leuks and WBCs -urine culture reviewed -leukocytosis improved, changed antibiotics from ceftin to IV zosyn 03/27. Zosyn d/c'd per ID 03/28/18. -patient with occasional abdominal tenderness on exam, abdominal CT 03/27/19 -> Abnormal appearance to the colon from the rectum to the descending colon with diffuse thickening of the wall and hypodense appearance to the thickened wall. -ID consulted and following -blood culture with NGTD Urinary retention with bladder scan showing urinary retention -Richter removed patient was unable to urinate bladder scan with more than 400 cc , had straight cath . Will start gently IVF Monitor urine OP and do straight cath. If unable to urinate will consider urology consult and richter -voiding trial prior to discharge Diabetes with Hypoglycemia: acute - improving -resume Lantus -continue patient's gabapentin for neuropathy -monitor accu-checks and cover with SSI -ADA diet Dementia, Inability to Care for Self: acute on chronic -consulted palliative care, appreciate assistance Chronic Back Pain: chronic - reviewed 03/28/18, stable -continue patient's extended release dilaudid 12mg po daily (verified on E- [facility]) -Consult PT/OT Sinus Tachycardia: possibly multifactorial with sepsis and PE -EKG with sinus tachycardia -treat infection as above Moderate to severe protein calorie malnutrition. 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 Glucerna 3 times daily and Dennis twice daily -consult supply chain systems manager Hyperlipidemia: chronic -continue patient's statin Stage II left side of sacrum and stage III medial aspect of sacrum decubitus ulcer, POA -wound care nurse consulted -specialty bed ordered -apply calazime cream MDM: POA Code: No code, DNR GI ppx: PPI DVT Prophylaxis: on heparin drip DC plan: Pending improvement and clearance by consultants Patient still with diarrhea and abdominal pain. Also not eating much. Discharge when able to eat, and when stools are forming.
[2018-04-02] MEDS: Sod Chloride 0.9% Inj 1,000 ML IV.CONT SCH (15:59)
[2018-04-02] MEDS: Amitriptyline 10 MG Tablet PO SCH (21:54)
[2018-04-03 05:25] LABS: Baso # (Auto) 0.1 th/mm3 (0.0-0.2); Baso % (Auto) 0.5 % (0.0-2.0); Eos # (Auto) 0.3 th/mm3 (0.0-0.4); Eos % (Auto) 1.6 % (0.0-4.0); Hematocrit 29.6 % (35.0-46.0); Hemoglobin 10.3 gm/dL (11.6-15.3); Lymph # (Auto) 3.1 th/mm3 (1.0-4.8); Lymph % (Auto) 18.3 % (9.0-44.0); Mean Corpuscular HGB Conc 34.7 % (32.0-36.0); Mean Corpuscular Hemoglobin 31.1 pg (27.0-34.0); Mean Corpuscular Volume 89.5 fL (80.0-100.0); Mean Platelet Volume 7.9 fL (7.0-11.0); Mono # (Auto) 0.9 th/mm3 (0.0-0.9); Mono % (Auto) 5.2 % (0.0-8.0); Neut # (Auto) 12.4 th/mm3 (1.8-7.7); Neut % (Auto) 74.4 % (16.0-70.0); Platelet Count 443 th/mm3 (150-450); Red Blood Count 3.31 mil/mm3 (4.00-5.30); Red Cell Distribution Width 15.9 % (11.6-17.2); White Blood Count 16.7 th/mm3 (4.0-11.0)
[2018-04-03 05:31] LABS: Anion Gap 10 meq/L (5-15); Blood Urea Nitrogen 6 mg/dL (7-18); Calcium 7.3 mg/dL (8.5-10.1); Chloride 105 meq/L (98-107); Glomerular Filtration Rate Greater Than 89 mL/min (>89); Glucose,Random 242 mg/dL (74-106); Potassium 3.7 meq/L (3.5-5.1); Sodium 138 meq/L (136-145)
[2018-04-03 05:45] LABS: Calcium-Albumin Corrected 8.7 mg/dL (8.5-10.1); Total Protein 4.7 g/dL (6.4-8.2)
[2018-04-03] MEDS: Sod Chloride 0.9% Inj 1,000 ML IV.CONT SCH ×3 (06:45→21:49)
[2018-04-03] MEDS: Insulin NovoLOG Aspart Correctional Sugar Inj SQ SCH ×4 (08:07→21:54)
[2018-04-03] MEDS: Gabapentin 100 MG Capsule PO SCH ×3 (09:20→17:24)
[2018-04-03] MEDS: Lactobacillus Acidophilus/L. Spores Tablet PO SCH ×3 (09:21→17:24)
[2018-04-03] MEDS: Heparin Drip 25,000 UNIT/250 ML BAG IV.CONT PRN (09:22)
[2018-04-03] MEDS: Tiotropium Bromide 18 MCG/ACT Inhaler INH SCH (09:27)
[2018-04-03] MEDS: Olopatadine 0.1% Opth Drops 5 ML Bottle EACH EYE SCH ×2 (09:28→22:02)
[2018-04-03] MEDS: Sodium Chloride 0.9% 2 ML Flush BID IV.FLUSH SCH ×2 (09:32→21:53)
[2018-04-03 10:00] LABS: Eosinophils 1 % (0-4); Lymphocytes 14 % (9-44); Metamyelocytes 5 % (0-1)
[2018-04-03 10:01] LABS: Platelet Estimate Normal (Normal); Platelet Morphology Normal (Normal); RBC Morphology Normal (Normal); Toxic Granulation 2+
--- NOTE | 2018-04-03 13:05 | P.PN ---
Subjective Interval history: Not able to eat much. Appetite is not well. Still with nausea did not vomit. Still with abdominal pain. Still with diarrhea. No fever or chills overnight. Richter is removed and after IV fluids were started urine output is better and the patient is able to urinate. Physical Exam Vital signs: Vital Signs 04/02/18 16:00 04/02/18 18:03 04/02/18 20:00 Temperature 98.1 F 97.8 F Pulse Rate 113 H 106 H Respiratory Rate 18 22 Blood Pressure 124/73 129/62 Pulse Oximetry 98 98 94 L 04/03/18 00:00 04/03/18 04:00 04/03/18 08:00 Temperature 97.5 F L 98.2 F 97.6 F Pulse Rate 98 H 97 H 96 H Respiratory Rate 22 20 19 Blood Pressure 123/60 130/59 L 113/51 L Pulse Oximetry 97 98 94 L 04/03/18 12:00 Temperature 97.3 F L Pulse Rate 97 H Respiratory Rate 19 Blood Pressure 159/67 H Pulse Oximetry 96 Intake & Output 04/02/18 04/03/18 04/03/18 18:59 06:59 18:59 Intake Total 825 / 825 1240 / 1240 250 / 250 Output Total 450 / 450 575 / 575 Balance 375 / 375 665 / 665 250 / 250 Weight 58.3 kg Intake: IV 250 / 250 1000 / 1000 250 / 250 Heparin/D5W 25,000 U/250 mL 25, 250 / 250 250 / 250 000 unit In 250 ml @ Per Protocol IV.CONT TITRATE PRN Rx #:[id number] NS Inj 1,000 ML @ 70 mls/hr IV. 1000 / 1000 CONT .[id number] [facility] Rx#:[id number] Oral 575 / 575 240 / 240 Output: Urine 450 / 450 575 / 575 Other: Date of Last Bowel Movement 04/02/18 # Bowel Movements 3 Narrative: GENERAL: Elderly frail female, appears in no acute distress CARDIOVASCULAR: Regular rate and rhythm without murmurs, gallops, or rubs. RESPIRATORY: Breath sounds equal bilaterally. No accessory muscle use. GASTROINTESTINAL: Abdomen soft, tender, nondistended. MUSCULOSKELETAL: No cyanosis, or edema. PSYCHIATRIC: Poor insight and judgement - Urinary Catheter Management Indwelling Urethral Catheter Cath placed during this visit: yes, but has since been removed by the nurse Reason for continuing: Chronic Urinary Retention Insertion date: 03/25/18 Insertion time: 01:15 Removal date: 04/01/18 Removal time: 18:00 Straight Cath placed during this visit: yes Reason for continuing: Not indwelling catheter Insertion date: 04/02/18 Insertion time: 06:00 Results - Labs CBC & Chem 7: 04/03/18 04:45 04/03/18 04:45 Laboratory Results - last 24 hr 04/02/18 04/02/18 04/03/18 16:50 21:58 04:45 WBC 16.7 H RBC 3.31 L Hgb 10.3 L Hct 29.6 L MCV 89.5 MCH 31.1 MCHC 34.7 RDW 15.9 Plt Count 443 MPV 7.9 Prelim Diff (Auto) Slide review pending Neut % (Auto) 74.4 H Lymph % (Auto) 18.3 [place] % (Auto) 5.2 Eos % (Auto) 1.6 Baso % (Auto) 0.5 Neut # (Auto) 12.4 H Lymph # (Auto) 3.1 [place] # (Auto) 0.9 Eos # (Auto) 0.3 Baso # (Auto) 0.1 WBC Differential Manual diff final Seg Neuts % (Manual) 54 Band Neuts % (Manual) 26 H Lymphocytes % (Manual) 14 Eosinophils % (Manual) 1 Metamyelocytes % (Man) 5 H Abs Neuts (Manual) 14.2 H Differential Comment . Toxic Granulation 2+ H Platelet Estimate Normal Platelet Morphology Normal RBC Morphology Normal APTT Sodium Potassium Chloride Carbon Dioxide Anion Gap BUN Creatinine Estimated GFR POC Glucose 222 H 365 H Random Glucose Calcium Prot Corrected Calcium Total Protein 04/03/18 04/03/18 04/03/18 04:45 07:23 07:47 WBC RBC Hgb Hct MCV MCH MCHC RDW Plt Count MPV Prelim Diff (Auto) Neut % (Auto) Lymph % (Auto) [place] % (Auto) Eos % (Auto) Baso % (Auto) Neut # (Auto) Lymph # (Auto) [place] # (Auto) Eos # (Auto) Baso # (Auto) WBC Differential Seg Neuts % (Manual) Band Neuts % (Manual) Lymphocytes % (Manual) Eosinophils % (Manual) Metamyelocytes % (Man) Abs Neuts (Manual) Differential Comment Toxic Granulation Platelet Estimate Platelet Morphology RBC Morphology APTT 50.9 H Sodium 138 Potassium 3.7 Chloride 105 Carbon Dioxide 23.0 Anion Gap 10 BUN 6 L Creatinine 0.59 Estimated GFR Greater than 89 POC Glucose 201 H Random Glucose 242 H D Calcium 7.3 L* Prot Corrected Calcium 8.7 Total Protein 4.7 L 04/03/18 11:54 WBC RBC Hgb Hct MCV MCH MCHC RDW Plt Count MPV Prelim Diff (Auto) Neut % (Auto) Lymph % (Auto) [place] % (Auto) Eos % (Auto) Baso % (Auto) Neut # (Auto) Lymph # (Auto) [place] # (Auto) Eos # (Auto) Baso # (Auto) WBC Differential Seg Neuts % (Manual) Band Neuts % (Manual) Lymphocytes % (Manual) Eosinophils % (Manual) Metamyelocytes % (Man) Abs Neuts (Manual) Differential Comment Toxic Granulation Platelet Estimate Platelet Morphology RBC Morphology APTT Sodium Potassium Chloride Carbon Dioxide Anion Gap BUN Creatinine Estimated GFR POC Glucose 166 H Random Glucose Calcium Prot Corrected Calcium Total Protein Assessment and Plan - Plan 83 y/o female with history of dementia, diabetes and chronic back pain was sent to ER because of altered mental status. History limited due to her dementia, poor historian. Per the ER note the patient was suspected to aspirate, with some changes in her mental status. She was also found to have a low blood sugar for which she received a dose of Glucagon and D10. C-diff colitis - -ID consulted and following -continue PO Vanc x 10 days -monitor electrolytes closely AMS: Improved suspect multifactorial secondary to hypoglycemia, hypoxia with PE , and underlying dementia - reviewed 03/29/18, improving -continue neuro checks -monitor blood glucose -monitor on telemetry Pulmonary Embolism: acute - reviewed 03/29/18, unchanged -VQ scan with Abnormal pulmonary perfusion, especially the left lung and high probability for pulmonary embolus. -BLE Doppler U/S negative for DVT -continue on IV heparin drip Sepsis with UTI resolving: met sepsis criteria with WBC 18K, tachycardia HR 120s , Tmax 100.7, suspected source-UTI - -UA positive for leuks and WBCs -urine culture reviewed -leukocytosis improved, changed antibiotics from ceftin to IV zosyn 03/27. Zosyn d/c'd per ID 03/28/18. -patient with occasional abdominal tenderness on exam, abdominal CT 03/27/19 -> Abnormal appearance to the colon from the rectum to the descending colon with diffuse thickening of the wall and hypodense appearance to the thickened wall. -ID consulted and following -blood culture with NGTD Urinary retention with bladder scan showing urinary retention -Richter removed patient was unable to urinate bladder scan with more than 400 cc , had straight cath . Will start gently IVF Monitor urine OP and do straight cath. If unable to urinate will consider urology consult and richter -voiding trial prior to discharge Diabetes with Hypoglycemia: acute - improving -resume Lantus -continue patient's gabapentin for neuropathy -monitor accu-checks and cover with SSI -ADA diet Dementia, Inability to Care for Self: acute on chronic -consulted palliative care, appreciate assistance Chronic Back Pain: chronic - reviewed 03/28/18, stable -continue patient's extended release dilaudid 12mg po daily (verified on E- [facility]) -Consult PT/OT Sinus Tachycardia: possibly multifactorial with sepsis and PE -EKG with sinus tachycardia -treat infection as above Moderate to severe protein calorie malnutrition. 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 Glucerna 3 times daily and Dennis twice daily -consult enterprise resource planner Hyperlipidemia: chronic -continue patient's statin Stage II left side of sacrum and stage III medial aspect of sacrum decubitus ulcer, POA -wound care nurse consulted -specialty bed ordered -apply calazime cream MDM: POA Code: No code, DNR GI ppx: PPI DVT Prophylaxis: on heparin drip DC plan: Pending improvement and clearance by consultants Patient still with diarrhea and abdominal pain. Also not eating much. Discharge when able to eat, and when stools are forming.
[2018-04-03] MEDS: Amitriptyline 10 MG Tablet PO SCH (23:02)
[2018-04-04] MEDS: Heparin Drip 25,000 UNIT/250 ML BAG IV.CONT PRN (06:40)
--- NOTE | 2018-04-04 08:23 | P.PN ---
Subjective Interval history: Patient is feeling better today but still with diarrhea and some abdominal cramps however she is able to eat better today. Rcihter was removed and urine output put picked up with IV fluids. She is more awake and alert. No fever or chills overnight. She is noted with some change bloody gelatinous stools. Hemoglobin is stable. Physical Exam Vital signs: Vital Signs 04/03/18 12:00 04/03/18 14:36 04/03/18 16:00 Temperature 97.3 F L 98.8 F Pulse Rate 97 H 101 H Respiratory Rate 19 17 19 Blood Pressure 159/67 H 125/60 Pulse Oximetry 96 96 04/03/18 17:45 04/03/18 20:00 04/04/18 00:00 Temperature 97.7 F 97.9 F Pulse Rate 108 H 98 H Respiratory Rate 20 20 Blood Pressure 111/56 L 113/56 L Pulse Oximetry 96 97 97 04/04/18 04:00 Temperature 98.1 F Pulse Rate 99 H Respiratory Rate 20 Blood Pressure 141/65 H Pulse Oximetry 98 Intake & Output 04/03/18 04/04/18 04/04/18 18:59 06:59 18:59 Intake Total 370 / 370 1490 / 1490 Output Total 400 / 400 Balance 370 / 370 1090 / 1090 Weight 61.4 kg Intake: IV 250 / 250 1250 / 1250 Heparin/D5W 25,000 U/250 mL 25, 250 / 250 250 / 250 000 unit In 250 ml @ Per Protocol IV.CONT TITRATE PRN Rx #:[id number] NS Inj 1,000 ML @ 70 mls/hr IV. 1000 / 1000 CONT .[id number] [facility] Rx#:[id number] Oral 120 / 120 240 / 240 Output: Urine 400 / 400 Other: # Voids 2 1 Date of Last Bowel Movement 04/03/18 04/03/18 # Bowel Movements 2 Narrative: GENERAL: Elderly frail female, appears in no acute distress CARDIOVASCULAR: Regular rate and rhythm without murmurs, gallops, or rubs. RESPIRATORY: Breath sounds equal bilaterally. No accessory muscle use. GASTROINTESTINAL: Abdomen soft, tender, nondistended. MUSCULOSKELETAL: No cyanosis, or edema. PSYCHIATRIC: Poor insight and judgement - Urinary Catheter Management Indwelling Urethral Catheter Cath placed during this visit: yes, but has since been removed by the nurse Reason for continuing: Chronic Urinary Retention Insertion date: 03/25/18 Insertion time: 01:15 Removal date: 04/01/18 Removal time: 18:00 Straight Cath placed during this visit: yes Reason for continuing: Not indwelling catheter Insertion date: 04/02/18 Insertion time: 06:00 Results - Labs CBC & Chem 7: 04/03/18 04:45 04/03/18 04:45 Laboratory Results - last 24 hr 04/03/18 04/03/18 04/03/18 04:45 11:54 16:26 WBC Differential Manual diff final Seg Neuts % (Manual) 54 Band Neuts % (Manual) 26 H Lymphocytes % (Manual) 14 Eosinophils % (Manual) 1 Metamyelocytes % (Man) 5 H Abs Neuts (Manual) 14.2 H Toxic Granulation 2+ H Platelet Estimate Normal Platelet Morphology Normal RBC Morphology Normal APTT POC Glucose 166 H 208 H 04/03/18 04/04/18 20:09 05:19 WBC Differential Seg Neuts % (Manual) Band Neuts % (Manual) Lymphocytes % (Manual) Eosinophils % (Manual) Metamyelocytes % (Man) Abs Neuts (Manual) Toxic Granulation Platelet Estimate Platelet Morphology RBC Morphology APTT 50.5 H POC Glucose 198 H Assessment and Plan - Plan 83 y/o female with history of dementia, diabetes and chronic back pain was sent to ER because of altered mental status. History limited due to her dementia, poor historian. Per the ER note the patient was suspected to aspirate, with some changes in her mental status. She was also found to have a low blood sugar for which she received a dose of Glucagon and D10. C-diff colitis - -ID consulted and following -continue PO Vanc x 10 days -monitor electrolytes closely AMS: Improved suspect multifactorial secondary to hypoglycemia, hypoxia with PE , and underlying dementia - reviewed 03/29/18, improving -continue neuro checks -monitor blood glucose -monitor on telemetry Pulmonary Embolism: acute - reviewed 03/29/18, unchanged -VQ scan with Abnormal pulmonary perfusion, especially the left lung and high probability for pulmonary embolus. -BLE Doppler U/S negative for DVT -continue on IV heparin drip Sepsis with UTI resolving: met sepsis criteria with WBC 18K, tachycardia HR 120s , Tmax 100.7, suspected source-UTI - -UA positive for leuks and WBCs -urine culture reviewed -leukocytosis improved, changed antibiotics from ceftin to IV zosyn 03/27. Zosyn d/c'd per ID 03/28/18. -patient with occasional abdominal tenderness on exam, abdominal CT 03/27/19 -> Abnormal appearance to the colon from the rectum to the descending colon with diffuse thickening of the wall and hypodense appearance to the thickened wall. -ID consulted and following -blood culture with NGTD Urinary retention with bladder scan showing urinary retention -Richter removed patient was unable to urinate bladder scan with more than 400 cc , had straight cath . Will start gently IVF Monitor urine OP and do straight cath. If unable to urinate will consider urology consult and richter -voiding trial prior to discharge Diabetes with Hypoglycemia: acute - improving -resume Lantus -continue patient's gabapentin for neuropathy -monitor accu-checks and cover with SSI -ADA diet Dementia, Inability to Care for Self: acute on chronic -consulted palliative care, appreciate assistance Chronic Back Pain: chronic - reviewed 03/28/18, stable -continue patient's extended release dilaudid 12mg po daily (verified on E- [facility]) -Consult PT/OT Sinus Tachycardia: possibly multifactorial with sepsis and PE -EKG with sinus tachycardia -treat infection as above Moderate to severe protein calorie malnutrition. 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 Glucerna 3 times daily and Dennis twice daily -consult basin cleaner Hyperlipidemia: chronic -continue patient's statin Stage II left side of sacrum and stage III medial aspect of sacrum decubitus ulcer, POA -wound care nurse consulted -specialty bed ordered -apply calazime cream MDM: POA Code: No code, DNR GI ppx: PPI DVT Prophylaxis: on heparin drip DC plan: Pending improvement and clearance by consultants Patient still with diarrhea and abdominal pain. Also not eating much. Discharge when able to eat, and when stools are forming. Palliative care is consulted and is following. Hospice consulted as well
[2018-04-04] MEDS: Insulin NovoLOG Aspart Correctional Sugar Inj SQ SCH ×4 (09:28→22:33)
[2018-04-04] MEDS: Gabapentin 100 MG Capsule PO SCH ×3 (09:30→17:47)
[2018-04-04] MEDS: Lactobacillus Acidophilus/L. Spores Tablet PO SCH ×3 (09:31→17:46)
[2018-04-04] MEDS: Sodium Chloride 0.9% 2 ML Flush BID IV.FLUSH SCH ×2 (09:31→22:32)
[2018-04-04] MEDS: Tiotropium Bromide 18 MCG/ACT Inhaler INH SCH (09:34)
[2018-04-04] MEDS: Olopatadine 0.1% Opth Drops 5 ML Bottle EACH EYE SCH ×2 (09:34→22:32)
[2018-04-04] MEDS: Sod Chloride 0.9% Inj 1,000 ML IV.CONT SCH (09:38)
--- NOTE | 2018-04-04 14:43 | P.PNPAL ---
Reason for Visit Reason for visit: a. To assist with evaluation and management of symptoms including: Dyspnea, confusion, pain b. To assist medical decision maker(s) with: better understanding of current medical conditions; weighing benefits/burdens of medical treatment options; making medical treatment decisions. Subjective Subjective/Interval History: Patient planned for discharge last week with hospice services. Patient seen and examined in her room. She has been having some abdominal pain, diarrhea, nausea, and vomiting. Her appetite is still poor. She was having urinary retention but is now able to void. At time of my visit there is no family available. Patient is resting with her eyes closed. She denies any current abdominal pain, nausea, or vomiting. Spoke with BS nurse to update. Family/Friend Interactions: Attempted to call daughter Loretta to update, no answer, no VM to leave. Received call back from daughter Loretta. Daughter states she just wants her mother to be comfortable. Discussed risks and benefits of continued treatments including risks for UTI secondary to straight caths, wound complications/ infections, possibility of continued reoccurrence of C-diff infections. Further discussed progression of dementia, and likelihood of infections exacerbating confusion and increasing risks for further cognitive decline. Despite continued treatments for acute conditions, her dementia would likely contribute some of the same complications and remains a progressive illness. Daughter states she has already spoke with hospice and signed consents, she would like the patient to be discharged back to her LT facility with hospice support. Advised I would have a hospice corporate sales representative follow up with her. Objective Vital Signs: Vital Signs 04/03/18 14:36 04/03/18 16:00 04/03/18 17:45 Temperature 98.8 F Pulse Rate 101 H Respiratory Rate 17 19 Blood Pressure 125/60 Pulse Oximetry 96 96 04/03/18 20:00 04/04/18 00:00 04/04/18 04:00 Temperature 97.7 F 97.9 F 98.1 F Pulse Rate 108 H 98 H 99 H Respiratory Rate 20 20 20 Blood Pressure 111/56 L 113/56 L 141/65 H Pulse Oximetry 97 97 98 04/04/18 08:00 04/04/18 11:06 04/04/18 12:00 Temperature 97.6 F 97.8 F Pulse Rate 96 H 91 H Respiratory Rate 20 18 Blood Pressure 146/58 H 123/57 L Pulse Oximetry 99 99 100 Intake & Output 04/03/18 04/04/18 04/04/18 18:59 06:59 18:59 Intake Total 370 / 370 1490 / 1490 1000 / 1000 Output Total 400 / 400 Balance 370 / 370 1090 / 1090 1000 / 1000 Weight 61.4 kg Intake: IV 250 / 250 1250 / 1250 1000 / 1000 Heparin/D5W 25,000 U/250 mL 25, 250 / 250 250 / 250 000 unit In 250 ml @ Per Protocol IV.CONT TITRATE PRN Rx #:[id number] NS Inj 1,000 ML @ 70 mls/hr IV. 1000 / 1000 1000 / 1000 CONT .[id number] CARLYLE Rx#:[id number] Oral 120 / 120 240 / 240 Output: Urine 400 / 400 Other: # Voids 2 1 Date of Last Bowel Movement 04/03/18 04/03/18 04/04/18 # Bowel Movements 2 Physical Exam: CONSTITUTIONAL/GENERAL: This is an adequately nourished patient, in no apparent distress. TUBES/LINES/DRAINS: Peripheral IV left hand. SKIN: No jaundice, rashes, or lesions. Ecchymoses on upper extremities. No wounds seen anteriorly. Skin temperature appropriate. Not diaphoretic. HEAD: Atraumatic. Normocephalic. EYES: Pupils equal and round and reactive. Extraocular motions intact. No scleral icterus. No injection or drainage. Fundi not examined. CARDIOVASCULAR: Tachycardic. No JVD. Peripheral pulses symmetric. RESPIRATORY/CHEST: Symmetric, unlabored respirations. Clear to auscultation. Breath sounds equal bilaterally. No wheezes, rales, or rhonchi. GASTROINTESTINAL: Abdomen non-tender, No palpable masses. No guarding. Bowel sounds present. GENITOURINARY: Without palpable bladder distension. MUSCULOSKELETAL: Limited joint movement LUE NEUROLOGICAL: Awake and alert. Motor and sensory grossly within normal limits. Follows commands. Moves all extremities. PSYCHIATRIC: No obvious anxiety/depression. no apparent hallucinations or other psychotic thought process. Diagnostic Tests Laboratory: Laboratory Results - last 72 hr 04/01/18 04/01/18 04/01/18 17:00 17:18 23:36 WBC RBC Hgb Hct MCV MCH MCHC RDW Plt Count MPV Prelim Diff (Auto) Neut % (Auto) Lymph % (Auto) Crosby % (Auto) Eos % (Auto) Baso % (Auto) Neut # (Auto) Lymph # (Auto) Crosby # (Auto) Eos # (Auto) Baso # (Auto) WBC Differential Seg Neuts % (Manual) Band Neuts % (Manual) Lymphocytes % (Manual) Monocytes % (Manual) Eosinophils % (Manual) Metamyelocytes % (Man) Myelocytes % (Man) Promyelocytes % (Man) Abs Neuts (Manual) Differential Comment Toxic Granulation Platelet Estimate Platelet Morphology RBC Morphology APTT 24.2 D Sodium Potassium Chloride Carbon Dioxide Anion Gap BUN Creatinine Estimated GFR POC Glucose 130 H 170 H Random Glucose Calcium Prot Corrected Calcium Total Protein Prealbumin 04/02/18 04/02/18 04/02/18 00:19 07:11 07:11 WBC 17.0 H RBC 4.07 Hgb 12.2 Hct 37.0 MCV 91.0 MCH 30.0 MCHC 32.9 RDW 15.7 Plt Count 478 H MPV 8.1 Prelim Diff (Auto) Slide review pending Neut % (Auto) 74.4 H Lymph % (Auto) 17.1 Crosby % (Auto) 5.7 Eos % (Auto) 1.9 Baso % (Auto) 0.9 Neut # (Auto) 12.6 H Lymph # (Auto) 2.9 Crosby # (Auto) 1.0 H Eos # (Auto) 0.3 Baso # (Auto) 0.2 WBC Differential Manual diff final Seg Neuts % (Manual) 43 Band Neuts % (Manual) 9 H Lymphocytes % (Manual) 23 Monocytes % (Manual) 10 H Eosinophils % (Manual) 1 Metamyelocytes % (Man) 3 H Myelocytes % (Man) 8 H Promyelocytes % (Man) 3 H Abs Neuts (Manual) 11.2 H Differential Comment . Toxic Granulation 2+ H Platelet Estimate High H Platelet Morphology Normal RBC Morphology APTT 46.9 H D Sodium 137 Potassium 3.4 L Chloride 102 Carbon Dioxide 23.6 Anion Gap 11 BUN 6 L Creatinine 0.47 L Estimated GFR Greater than 89 POC Glucose Random Glucose 142 H Calcium 7.7 L Prot Corrected Calcium Total Protein Prealbumin 04/02/18 04/02/18 04/02/18 07:11 07:11 07:54 WBC RBC Hgb Hct MCV MCH MCHC RDW Plt Count MPV Prelim Diff (Auto) Neut % (Auto) Lymph % (Auto) Crosby % (Auto) Eos % (Auto) Baso % (Auto) Neut # (Auto) Lymph # (Auto) Crosby # (Auto) Eos # (Auto) Baso # (Auto) WBC Differential Seg Neuts % (Manual) Band Neuts % (Manual) Lymphocytes % (Manual) Monocytes % (Manual) Eosinophils % (Manual) Metamyelocytes % (Man) Myelocytes % (Man) Promyelocytes % (Man) Abs Neuts (Manual) Differential Comment Toxic Granulation Platelet Estimate Platelet Morphology RBC Morphology APTT 42.5 H Sodium Potassium Chloride Carbon Dioxide Anion Gap BUN Creatinine Estimated GFR POC Glucose 141 H Random Glucose Calcium Prot Corrected Calcium Total Protein Prealbumin 6 L 04/02/18 04/02/18 04/02/18 11:36 16:50 21:58 WBC RBC Hgb Hct MCV MCH MCHC RDW Plt Count MPV Prelim Diff (Auto) Neut % (Auto) Lymph % (Auto) Crosby % (Auto) Eos % (Auto) Baso % (Auto) Neut # (Auto) Lymph # (Auto) Crosby # (Auto) Eos # (Auto) Baso # (Auto) WBC Differential Seg Neuts % (Manual) Band Neuts % (Manual) Lymphocytes % (Manual) Monocytes % (Manual) Eosinophils % (Manual) Metamyelocytes % (Man) Myelocytes % (Man) Promyelocytes % (Man) Abs Neuts (Manual) Differential Comment Toxic Granulation Platelet Estimate Platelet Morphology RBC Morphology APTT Sodium Potassium Chloride Carbon Dioxide Anion Gap BUN Creatinine Estimated GFR POC Glucose 173 H 222 H 365 H Random Glucose Calcium Prot Corrected Calcium Total Protein Prealbumin 04/03/18 04/03/18 04/03/18 04:45 04:45 07:23 WBC 16.7 H RBC 3.31 L Hgb 10.3 L Hct 29.6 L MCV 89.5 MCH 31.1 MCHC 34.7 RDW 15.9 Plt Count 443 MPV 7.9 Prelim Diff (Auto) Slide review pending Neut % (Auto) 74.4 H Lymph % (Auto) 18.3 Crosby % (Auto) 5.2 Eos % (Auto) 1.6 Baso % (Auto) 0.5 Neut # (Auto) 12.4 H Lymph # (Auto) 3.1 Crosby # (Auto) 0.9 Eos # (Auto) 0.3 Baso # (Auto) 0.1 WBC Differential Manual diff final Seg Neuts % (Manual) 54 Band Neuts % (Manual) 26 H Lymphocytes % (Manual) 14 Monocytes % (Manual) Eosinophils % (Manual) 1 Metamyelocytes % (Man) 5 H Myelocytes % (Man) Promyelocytes % (Man) Abs Neuts (Manual) 14.2 H Differential Comment . Toxic Granulation 2+ H Platelet Estimate Normal Platelet Morphology Normal RBC Morphology Normal APTT 50.9 H Sodium 138 Potassium 3.7 Chloride 105 Carbon Dioxide 23.0 Anion Gap 10 BUN 6 L Creatinine 0.59 Estimated GFR Greater than 89 POC Glucose Random Glucose 242 H D Calcium 7.3 L* Prot Corrected Calcium 8.7 Total Protein 4.7 L Prealbumin 04/03/18 04/03/18 04/03/18 07:47 11:54 16:26 WBC RBC Hgb Hct MCV MCH MCHC RDW Plt Count MPV Prelim Diff (Auto) Neut % (Auto) Lymph % (Auto) Crosby % (Auto) Eos % (Auto) Baso % (Auto) Neut # (Auto) Lymph # (Auto) Crosby # (Auto) Eos # (Auto) Baso # (Auto) WBC Differential Seg Neuts % (Manual) Band Neuts % (Manual) Lymphocytes % (Manual) Monocytes % (Manual) Eosinophils % (Manual) Metamyelocytes % (Man) Myelocytes % (Man) Promyelocytes % (Man) Abs Neuts (Manual) Differential Comment Toxic Granulation Platelet Estimate Platelet Morphology RBC Morphology APTT Sodium Potassium Chloride Carbon Dioxide Anion Gap BUN Creatinine Estimated GFR POC Glucose 201 H 166 H 208 H Random Glucose Calcium Prot Corrected Calcium Total Protein Prealbumin 04/03/18 04/04/18 04/04/18 20:09 05:19 09:27 WBC RBC Hgb Hct MCV MCH MCHC RDW Plt Count MPV Prelim Diff (Auto) Neut % (Auto) Lymph % (Auto) Crosby % (Auto) Eos % (Auto) Baso % (Auto) Neut # (Auto) Lymph # (Auto) Crosby # (Auto) Eos # (Auto) Baso # (Auto) WBC Differential Seg Neuts % (Manual) Band Neuts % (Manual) Lymphocytes % (Manual) Monocytes % (Manual) Eosinophils % (Manual) Metamyelocytes % (Man) Myelocytes % (Man) Promyelocytes % (Man) Abs Neuts (Manual) Differential Comment Toxic Granulation Platelet Estimate Platelet Morphology RBC Morphology APTT 50.5 H Sodium Potassium Chloride Carbon Dioxide Anion Gap BUN Creatinine Estimated GFR POC Glucose 198 H 191 H Random Glucose Calcium Prot Corrected Calcium Total Protein Prealbumin 04/04/18 12:23 WBC RBC Hgb Hct MCV MCH MCHC RDW Plt Count MPV Prelim Diff (Auto) Neut % (Auto) Lymph % (Auto) Crosby % (Auto) Eos % (Auto) Baso % (Auto) Neut # (Auto) Lymph # (Auto) Crosby # (Auto) Eos # (Auto) Baso # (Auto) WBC Differential Seg Neuts % (Manual) Band Neuts % (Manual) Lymphocytes % (Manual) Monocytes % (Manual) Eosinophils % (Manual) Metamyelocytes % (Man) Myelocytes % (Man) Promyelocytes % (Man) Abs Neuts (Manual) Differential Comment Toxic Granulation Platelet Estimate Platelet Morphology RBC Morphology APTT Sodium Potassium Chloride Carbon Dioxide Anion Gap BUN Creatinine Estimated GFR POC Glucose 173 H Random Glucose Calcium Prot Corrected Calcium Total Protein Prealbumin Result Diagrams: 04/03/18 04:45 04/03/18 04:45 Microbiology: Microbiology 03/27/18 13:13 Aerobic Blood Culture - Final Blood - Peripheral No growth in 5 days Anaerobic Blood Culture - Final No growth in 5 days 03/27/18 13:19 Aerobic Blood Culture - Final Blood - Peripheral No growth in 5 days Anaerobic Blood Culture - Final No growth in 5 days Assessment and Plan Pertinent Non-Medical Issues: Psychosocial: Patient is originally from [facility]. 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 She is , she had 4 children , only 2 are living now. She suffered the of her son and daughter within a month's time of each other. She had been living with her daughter until about a year ago when she was transition to long-term care facility due to progression of her dementia and increasing care demands. Spiritual: Daughter reports treasure was important in the patient's life at one point. She had not been very spiritual in the recent past, Is receptive to dermatology physician visit. Legal: Patient is not capacitated to make her own decisions at this time, likely will not regain capacity. Daughter has power of tax attorney paperwork however healthcare power of tax attorney section is not signed. Patient had 4 children, only 2 are living. Call placed to second daughter, Aiyana who is in agreement with her sister Loretta making healthcare decisions for the patient Ethical issues impacting care: None Important Contacts: Daughter Loretta Lopez: [phone] Grandchild Teja Casanova: [phone] Prognosis: Patient has a long history of dementia which has been exacerbated by multiple infections, hospitalizations, and loss of multiple family members over the past year, as well as underlying psych issues. Daughter recently had to transition her to long-term care due to increasing in care needs. She was somewhat ambulatory started having frequent falls with fractures and other injuries, is now essentially bedbound. Patient also has bipolar disorder which may likely compounded confusion. Given her underlying COPD, and newly found pulmonary embolism, life expectancy is limited if not treated. Patient would be appropriate for hospice services if family's goals are appropriate. Code Status: No Code DNR Plan: Legal decision maker: Patient is not capacitated to make her own decisions at this time, likely will not regain capacity. Daughter has power of tax attorney paperwork however healthcare power of tax attorney section is not signed. Patient had 4 children, only 2 are living. Call placed to second daughter, Aiyana who is in agreement with her sister Loretta making healthcare decisions for the patient Goals: Per prior palliative interactions, Daughter would like patient to return to facility with hospice services, comfort oriented treatments only. She would like to continue psychiatric meds to help patient's mood remain as stable as possible. Initially unable to reach daughter. On return call, she affirms comfort goals and hiren like the patient discharged back to her facility with hospice support. Hospice rep to follow CODE STATUS: DNR SYMPTOMS: --Pain: Patient has a history of chronic pain secondary to multiple falls with fractures. Appears comfortable at this time however complains of abdominal tenderness to light palpation. Recent CT abdomen with some abnormal thickening of colon wall, possible gallstones. We will continue to assess. --Dyspnea: Patient has a history of COPD and now has pulmonary embolism. She has chronically been on oxygen prior to this hospitalization. She appears comfortable, no dyspnea, will continue to assess. Had been requiring BiPAP in the emergency room but has been weaned back to nasal cannula. High risk for further setbacks secondary to PE and history of COPD. --Confusion: Patient has a history of dementia and bipolar. She was also found hypoglycemic with a blood sugar in the 30s. At this time she is confused but can answer some questions appropriately. At this time she is not restless or agitated. She appears comfortable, pleasant, cooperative. Palliative care will continue to follow during hospital course as condition evolves, to assist patient/decision-maker with understanding of medical conditions, weighing benefits/burdens of treatment options, for clarification of goals of treatment. Additionally will assist with any symptoms of palliative concern Attestation Attestation: To help prompt me to consider important information that might be impacting today's encounter and assessment, information from prior notes written by myself or my colleagues may have been "brought forward" into today's note. My signature on this note, however, is an attestation that I personally performed the exam, history, and/or decision-making noted today, and, unless otherwise indicated, the interactions with patient, family, and staff as well as the review of records all occurred today. I also attest that the listed assessment and stated plan reflect my best clinical judgment today based on the combination of historical information, prior notes, and today's exam/ interactions. When time spent is documented, it refers only to time spent today by the signer, or if indicated, combined time spent today by collaborating physician/nurse practitioner.
[2018-04-04] MEDS: Amitriptyline 10 MG Tablet PO SCH (22:38)
[2018-04-05] MEDS: Sod Chloride 0.9% Inj 1,000 ML IV.CONT SCH ×2 (04:49→15:45)
[2018-04-05 05:43] LABS: Baso # (Auto) 0.1 th/mm3 (0.0-0.2); Eos # (Auto) 0.4 th/mm3 (0.0-0.4); Eos % (Auto) 2.9 % (0.0-4.0); Hematocrit 33.4 % (35.0-46.0); Hemoglobin 10.7 gm/dL (11.6-15.3); Lymph # (Auto) 2.8 th/mm3 (1.0-4.8); Lymph % (Auto) 22.7 % (9.0-44.0); Mean Corpuscular HGB Conc 32.1 % (32.0-36.0); Mean Corpuscular Hemoglobin 29.9 pg (27.0-34.0); Mean Corpuscular Volume 93.1 fL (80.0-100.0); Mean Platelet Volume 7.1 fL (7.0-11.0); Mono # (Auto) 0.7 th/mm3 (0.0-0.9); Mono % (Auto) 5.7 % (0.0-8.0); Neut # (Auto) 8.3 th/mm3 (1.8-7.7); Neut % (Auto) 67.7 % (16.0-70.0); Platelet Count 504 th/mm3 (150-450); Red Blood Count 3.59 mil/mm3 (4.00-5.30); Red Cell Distribution Width 16.9 % (11.6-17.2); White Blood Count 12.3 th/mm3 (4.0-11.0)
[2018-04-05 05:50] LABS: Anion Gap 6 meq/L (5-15); Blood Urea Nitrogen 6 mg/dL (7-18); Calcium 7.9 mg/dL (8.5-10.1); Carbon Dioxide 21.6 meq/L (21.0-32.0); Chloride 110 meq/L (98-107); Glomerular Filtration Rate Greater Than 89 mL/min (>89); Glucose,Random 168 mg/dL (74-106); Potassium 3.7 meq/L (3.5-5.1); Sodium 138 meq/L (136-145)
[2018-04-05 08:22] LABS: Eosinophils 5 % (0-4); Lymphocytes 22 % (9-44); Metamyelocytes 4 % (0-1); Monocytes 2 % (0-8); Myelocytes 1 % (0-0); Promyelocyte 2 % (0-0)
[2018-04-05 08:23] LABS: Platelet Morphology Normal (Normal)
[2018-04-05] MEDS: Lactobacillus Acidophilus/L. Spores Tablet PO SCH ×2 (08:53→14:39)
[2018-04-05] MEDS: Sodium Chloride 0.9% 2 ML Flush BID IV.FLUSH SCH (08:55)
[2018-04-05] MEDS: Gabapentin 100 MG Capsule PO SCH ×2 (08:55→14:39)
[2018-04-05] MEDS: Olopatadine 0.1% Opth Drops 5 ML Bottle EACH EYE SCH (09:08)
[2018-04-05] MEDS: Tiotropium Bromide 18 MCG/ACT Inhaler INH SCH (09:40)
--- NOTE | 2018-04-05 11:10 | P.DS ---
Date of admission: 03/25/18 06:01 Primary care physician: UNKNOWN Brief History from admission: patient is a 83 y/o female with history of dementia, diabetes and chronic back pain was sent to ER because of altered mental status. information is limited due to her mental condition. per the ER note the patient was suspected to aspirate yesterday with some changes in her mental status. she was found to have a low blood sugar for which she received a dose of Glucagon and D10. at the time of my evaluation she was in no acute distress, with mild generalized abdominal pain. as mentioned earlier patient is a poor historian. DS: Diagnosis - Discharge Diagnosis (1) C. difficile colitis Status: Acute (2) Hypoglycemia Status: Acute (3) Pulmonary embolism Status: Acute DS: Medications - Discharge Medications Prescriptions: apixaban [Eliquis] 5 mg PO BID #60 tab apixaban [Eliquis] 10 mg PO BID #14 tab DS: Summary Hospital Course: 83 y/o female with history of dementia, diabetes and chronic back pain was sent to ER because of altered mental status. History limited due to her dementia, poor historian. Per the ER note the patient was suspected to aspirate, with some changes in her mental status. She was also found to have a low blood sugar for which she received a dose of Glucagon and D10. Patient with C. difficile colitis altered mental status, pulmonary embolism, sepsis with the UTI, urinary retention dementia and inability to care for self. Patient was not significant improvement. Patient and family decided for hospice. Patient is discharged to hospice in deteriorating condition. C-diff colitis - -ID consulted and following -continue PO Vanc x 10 days -monitor electrolytes closely AMS: Improved suspect multifactorial secondary to hypoglycemia, hypoxia with PE , and underlying dementia - reviewed 03/29/18, improving -continue neuro checks -monitor blood glucose -monitor on telemetry Pulmonary Embolism: acute - reviewed 03/29/18, unchanged -VQ scan with Abnormal pulmonary perfusion, especially the left lung and high probability for pulmonary embolus. -BLE Doppler U/S negative for DVT -continue on IV heparin drip Sepsis with UTI resolving: met sepsis criteria with WBC 18K, tachycardia HR 120s , Tmax 100.7, suspected source-UTI - -UA positive for leuks and WBCs -urine culture reviewed -leukocytosis improved, changed antibiotics from ceftin to IV zosyn 03/27. Zosyn d/c'd per ID 03/28/18. -patient with occasional abdominal tenderness on exam, abdominal CT 03/27/19 -> Abnormal appearance to the colon from the rectum to the descending colon with diffuse thickening of the wall and hypodense appearance to the thickened wall. -ID consulted and following -blood culture with NGTD Urinary retention with bladder scan showing urinary retention -Richter removed patient was unable to urinate bladder scan with more than 400 cc , had straight cath . Will start gently IVF Monitor urine OP and do straight cath. If unable to urinate will consider urology consult and richter -voiding trial prior to discharge Diabetes with Hypoglycemia: acute - improving -resume Lantus -continue patient's gabapentin for neuropathy -monitor accu-checks and cover with SSI -ADA diet Dementia, Inability to Care for Self: acute on chronic -consulted palliative care, appreciate assistance Chronic Back Pain: chronic - reviewed 03/28/18, stable -continue patient's extended release dilaudid 12mg po daily (verified on E- [place]) -Consult PT/OT Sinus Tachycardia: possibly multifactorial with sepsis and PE -EKG with sinus tachycardia -treat infection as above Moderate to severe protein calorie malnutrition. 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 Also not eating much. Palliative care is consulted. Patient Hospice consulted as well Patient has a family decided for hospice. Patient discharged to hospice in deteriorating condition. - Time Spent with Patient Total time spent providing and/or coordinating discharge services: Greater than 30 minutes - Quality: VTE Deep Vein Thrombosis/Pulmonary Embolism Present on Admission: No Exam Vital signs: Vital Signs 04/04/18 12:00 04/04/18 16:00 04/04/18 20:00 Temperature 97.8 F 97.6 F 97.7 F Pulse Rate 91 H 94 H 70 Respiratory Rate 18 20 18 Blood Pressure 123/57 L 120/55 L 134/64 Pulse Oximetry 100 96 92 L 04/05/18 00:00 04/05/18 08:32 Temperature 98.1 F 97.6 F Pulse Rate 70 109 H Respiratory Rate 18 20 Blood Pressure 131/70 146/76 H Pulse Oximetry 98 100 Intake & Output 04/04/18 04/05/18 04/05/18 18:59 06:59 18:59 Intake Total 1000 / 1000 1000 / 1000 Balance 1000 / 1000 1000 / 1000 Weight 62.2 kg Intake: IV 1000 / 1000 1000 / 1000 NS Inj 1,000 ML @ 70 mls/hr IV. 1000 / 1000 1000 / 1000 CONT .[id number] [facility] Rx#:[id number] Other: # Voids 4 Date of Last Bowel Movement 04/04/18 04/04/18 Narrative: GENERAL: Elderly frail female, appears in no acute distress CARDIOVASCULAR: Regular rate and rhythm without murmurs, gallops, or rubs. RESPIRATORY: Breath sounds equal bilaterally. No accessory muscle use. GASTROINTESTINAL: Abdomen soft, tender, nondistended. MUSCULOSKELETAL: No cyanosis, or edema. PSYCHIATRIC: Poor insight and judgement Results Procedures completed during hospitalization: none Labs on day of discharge: Labs from last 24 hours 04/05/18 04/05/18 04/05/18 07:37 04:57 04:57 WBC RBC Hgb Hct MCV MCH MCHC RDW Plt Count MPV Prelim Diff (Auto) Neut % (Auto) Lymph % (Auto) [place] % (Auto) Eos % (Auto) Baso % (Auto) Neut # (Auto) Lymph # (Auto) [place] # (Auto) Eos # (Auto) Baso # (Auto) WBC Differential Seg Neuts % (Manual) Band Neuts % (Manual) Lymphocytes % (Manual) Monocytes % (Manual) Eosinophils % (Manual) Metamyelocytes % (Man) Myelocytes % (Man) Promyelocytes % (Man) Abs Neuts (Manual) Differential Comment Platelet Estimate Platelet Morphology APTT 45.1 H Sodium 138 Potassium 3.7 Chloride 110 H Carbon Dioxide 21.6 Anion Gap 6 BUN 6 L Creatinine 0.56 Estimated GFR Greater than 89 POC Glucose 167 H Random Glucose 168 H Calcium 7.9 L 04/05/18 04/04/18 04/04/18 04:57 22:30 17:46 WBC 12.3 H RBC 3.59 L Hgb 10.7 L Hct 33.4 L MCV 93.1 D MCH 29.9 MCHC 32.1 RDW 16.9 Plt Count 504 H MPV 7.1 Prelim Diff (Auto) Slide review pending Neut % (Auto) 67.7 Lymph % (Auto) 22.7 [place] % (Auto) 5.7 Eos % (Auto) 2.9 Baso % (Auto) 1.0 Neut # (Auto) 8.3 H Lymph # (Auto) 2.8 [place] # (Auto) 0.7 Eos # (Auto) 0.4 Baso # (Auto) 0.1 WBC Differential Manual diff final Seg Neuts % (Manual) 57 Band Neuts % (Manual) 7 H Lymphocytes % (Manual) 22 Monocytes % (Manual) 2 Eosinophils % (Manual) 5 H Metamyelocytes % (Man) 4 H Myelocytes % (Man) 1 H Promyelocytes % (Man) 2 H Abs Neuts (Manual) 8.7 H Differential Comment . Platelet Estimate High H Platelet Morphology Normal APTT Sodium Potassium Chloride Carbon Dioxide Anion Gap BUN Creatinine Estimated GFR POC Glucose 194 H 190 H Random Glucose Calcium 04/04/18 12:23 WBC RBC Hgb Hct MCV MCH MCHC RDW Plt Count MPV Prelim Diff (Auto) Neut % (Auto) Lymph % (Auto) [place] % (Auto) Eos % (Auto) Baso % (Auto) Neut # (Auto) Lymph # (Auto) [place] # (Auto) Eos # (Auto) Baso # (Auto) WBC Differential Seg Neuts % (Manual) Band Neuts % (Manual) Lymphocytes % (Manual) Monocytes % (Manual) Eosinophils % (Manual) Metamyelocytes % (Man) Myelocytes % (Man) Promyelocytes % (Man) Abs Neuts (Manual) Differential Comment Platelet Estimate Platelet Morphology APTT Sodium Potassium Chloride Carbon Dioxide Anion Gap BUN Creatinine Estimated GFR POC Glucose 173 H Random Glucose Calcium - Impressions ITS Impressions Venous Doppler Study 03/25/18 00:00 CONCLUSION: The study is negative for bilateral lower extremity deep venous thrombosis. Chest X-Ray 03/25/18 00:01 CONCLUSION: Probable interim but nonacute left hemithorax trauma with healing rib fractures and some associated pleural thickening. Otherwise negative and not significantly changed. Pulmonary Perfusion Imaging 03/25/18 02:20 CONCLUSION: Abnormal pulmonary perfusion, especially the left lung and high probability for pulmonary embolus. Abdomen/Pelvis CT 03/27/18 00:00 CONCLUSION: 1. Abnormal appearance to the colon from the rectum to the descending colon with diffuse thickening of the wall and hypodense appearance to the thickened wall. Is also induration of the fat in the presacral region and possible free fluid. 2. 2 calcified gallstones, distended gallbladder, and dilation of the common bile duct down to the level of the ampulla without calcified stone in the distal common bile. 3. Subsegmental infiltrates in the right lower lung. Discharge Plan - Discharge Disposition Patient Disposition: 03 Discharge to SNF - Discharge Condition Condition: Stable - Discharge Order Discharge Orders: Discharge Order (Routine); Ordered 04/05/18 Ordered By: Divine Ho - Discharge Details Anticipated Discharge Date: 03/25/18 - Physicians Team Primary Care Provider: UNKNOWN, Attending Provider: Divine Ho Other Providers: Maribell Damian MD ; [employer] ; Carlos Trevino MD ; [facility]
[2018-04-05 11:36] VITALS: BP 163/75; PULSE 110; RESP 16; TEMP 99.2
[2018-04-05 13:25] VITALS: O2SAT 96
[2018-04-05] MEDS: Insulin NovoLOG Aspart Correctional Sugar Inj SQ SCH ×2 (14:40→14:41)
== END 2018-04-05 15:08 ==
LOC: NEPE 23:51 → NEDA 03-25 06:01 → NEDH 03-25 10:15 → N06 03-25 12:53 → N07 03-29 21:31
PROVIDERS: ADMIT Hospitalist; ATTEND Hospitalist